=== PATIENT | female | born 1955 | race American Indian/Alaskan Native ===

== ENCOUNTER 2016-06-13 00:22 | Observation (INO) | payer MEDICARE, OTHER ==
[2016-06-13 00:22] VITALS: BMI 36.2
--- NOTE | 2016-06-13 01:10 | C.PDOC ---
History Of Present Illness Patient seen tonite due to Hx of leg swelling more so than usual. Complaining of pain.States she has been taking her lasix. Time Seen by Provider: 06/13/16 01:09 Chief Complaint (Nursing): Lower Extremity Problem/Injury History Per: Patient History/Exam Limitations: no limitations Onset/Duration Of Symptoms: Days Current Symptoms Are (Timing): Still Present Severity: Moderate Pain Scale Rating Of: 6 Recent travel outside of the [place]: No Additional History Per: Patient - Hip Currently Unable To: Other (no Hx of injury) - Ankle/Foot Description Of Injury: denies: Fell Past Medical History Vital Signs: Last Vital Signs Temp 99.1 F 06/13/16 05:06 Pulse 86 06/13/16 05:06 Resp 18 06/13/16 05:06 BP 113/68 06/13/16 05:06 Pulse Ox 98 06/13/16 05:36 - Medical History PMH: Arthritis, Bronchitis, CVA, Depression, Diabetes, HIV (T's>500 V's undectatable), HTN, Schizophrenia, TIA Denies: Chronic Kidney Disease Surgical History: Cholecystectomy Family History: States: Unknown Family Hx - Social History Hx Tobacco Use: No Hx Alcohol Use: No Hx Substance Use: No - Immunization History Hx Tetanus Toxoid Vaccination: No Hx Influenza Vaccination: Yes Hx Pneumococcal Vaccination: Yes Review Of Systems Constitutional: Negative for: Fever, Sweats Cardiovascular: Negative for: Chest Pain, Palpitations, Orthopnea Respiratory: Negative for: Cough, Shortness of Breath Gastrointestinal: Negative for: Nausea, Vomiting, Abdominal Pain, Diarrhea Genitourinary: Negative for: Dysuria, Frequency, Incontinence Musculoskeletal: Negative for: Arm Pain Skin: Negative for: Rash Neurological: Negative for: Weakness, Numbness, Incoordination, Change in Speech Psych: Negative for: Anxiety, Depression Physical Exam - Physical Exam Appears: No Acute Distress Skin: Normal Color, Warm, Dry Eye(s): bilateral: Normal Inspection, PERRL, EOMI Nose: Normal Tongue: Normal Appearing Throat: Normal Neck: Normal Cardiovascular: Rhythm Regular Respiratory: Normal Breath Sounds Gastrointestinal/Abdominal: Normal Exam Extremity: Normal ROM, Pedal Edema, Swelling (bilateral leg edema), Other ED Course And Treatment - Laboratory Results Result Diagrams: 06/13/16 01:28 06/13/16 01:28 ECG: Interpreted By Me, Viewed By Me ECG Rhythm: 1st Degree HB ECG Interpretation: Abnormal Interpretation Of ECG: NSR with first degree AV block, LAD, abnormal trcings Rate From EC O2 Sat by Pulse Oximetry: 98 Pulse Ox Interpretation: Normal - Radiology CXR: Interpreted by Me CXR Interpretation: Yes: Cardiomegaly, Other (presence of pulm. congestion) Disposition Discussed With Dr.: Bull Pelletier Doctor Will See Patient In The: Hospital Counseled Patient/Family Regarding: Diagnosis - Disposition Disposition: HOSPITALIZED Disposition Time: 05:35 Condition: STABLE - POA Present On Arrival: None - Clinical Impression Clinical Impression: Leg edema, Renal insufficiency
[2016-06-13 01:31] LABS: BASO # 0.1 K/uL (0.0-0.2); BASO % 0.8 % (0.0-2.0); EOS # 0.3 K/uL (0.0-0.7); EOS % 4.1 % (0.0-4.0); HEMATOCRIT 28.1 % (34.0-47.0); LYMPH # 2.9 K/uL (1.0-4.3); MEAN CELL VOLUME 94.7 fL (81.0-99.0); MEAN CORPUSCULAR HEMOGLOBIN 32.8 pg (27.0-31.0); MEAN CORPUSCULAR HGB CONC 34.6 g/dL (33.0-37.0); MEAN PLATELET VOLUME 6.9 fL (7.2-11.7); MONO # 0.7 K/uL (0.0-0.8); MONO % 10.4 % (0.0-10.0); NRBC % 0.1 % (0.0-2.0); RED CELL DISTRIBUTION WIDTH 13.7 % (11.5-14.5)
[2016-06-13 01:41] LABS: POTASSIUM 4.3 mmol/L (3.6-5.2)
[2016-06-13 01:43] LABS: ALB/GLOB RATIO 1.6 (1.0-2.1); BILIRUBIN,TOTAL 2.4 mg/dL (0.2-1.3); TOTAL PROTEIN 6.2 g/dL (6.3-8.3)
[2016-06-13 01:44] LABS: CALCIUM 8.5 mg/dl (8.6-10.4)
[2016-06-13] MEDS ORDERED: Sodium Chloride 0.9% 1,000 ML IV SCH (07:15)
--- NOTE | 2016-06-13 07:34 | CP.PCM.HP ---
<Guido Brown - Last Filed: 06/13/16 07:20> History of Present Illness - History of Present Illness History of Present Illness: Internal Medicine H&P Dr. Pelletier CC: B/L Leg Edema and Pain x 2 days HPI: This is a 61yo F patient with a PMH notable for HIV, HTN, DM, depression, hypercholesterolemia, anemia, DVT, and CVA presenting for medical evaluation of B/L lower extremity edema and pain for 1 week that became acutely worse 2 days ago. The patient notes that she was sitting in [employer] with a friend when she noticed that her legs were more swollen than normal, Right greater than Left. The patient subsequently had difficulty walking secondary to pain. The patient noted that she started a new HIV medication, Descovy, 2 months ago and started to notice incrementally more swelling in her legs since then. In addition to the swelling, the patient notes that she has become increasingly shot of breath on exertion. She states that normally she was able to walk about 2 blocks before becoming short of breath. She also states that she has had constant abdominal pain for the last two days, unintentional weight gain, cold intolerance, and constipation, but notes that her leg pain and swelling is her primary concern. The patient tried to use compression stockings at home, but was unable to get them on due to the swelling. The patient has noted no alleviating factors and sites walking as an exacerbating factor. The patient denies fever, chills, chest pain, palpitations, cough, N/V/D/C, changes in bowel /bladder habits, and extremity paresthesias. PMH: HIV, HTN, DM, depression, hypercholesterolemia, anemia, LLE DVT (17 years ago), and CVA (2 years ago- residual right sided weakness) Surg: Cholecystectomy, Total Hysterectomy Allergy: Cipro (rash) Social: Quit smoking 9 years ago Denies EtOH/Illicit Drugs PMD: Dr. Cueto Present on Admission - Present on Admission Any Indicators Present on Admission: No History of DVT/PE: Yes History of Uncontrolled Diabetes: No Urinary Catheter: No Decubitus Ulcer Present: No Review of Systems - Constitutional Constitutional: absent: Chills, Fatigue, Fever - EENT Eyes: absent: Blind Spots, Blurred Vision Ears: absent: Decreased Hearing, Ear Pain, Tinnitus Nose/Mouth/Throat: absent: Nose Pain, Change in Voice, Mouth Pain, Neck Pain, Neck Mass - Cardiovascular Cardiovascular: Leg Edema. absent: Chest Pain, Orthopnea, Palpitations, Syncope - Respiratory Respiratory: Dyspnea on Exertion. absent: Cough, Dyspnea, Hemoptysis - Gastrointestinal Gastrointestinal: Abdominal Pain, Constipation. absent: Diarrhea, Dysphagia, Nausea, Vomiting - Genitourinary Genitourinary: absent: Change in Urinary Stream, Difficulty Urinating - Musculoskeletal Musculoskeletal: Abnormal Gait. absent: Numbness, Stiffness, Tingling - Neurological Neurological: Abnormal Gait. absent: Headaches, Paresthesias, Radicular Pain, Syncope, Tingling, Tremor - Endocrine Endocrine: Cold Intolorance. absent: Heat Intolorance Past Patient History - Infectious Disease Hx of Infectious Diseases: None - Past Medical History & Family History Past Medical History?: Yes - Past Social History Smoking Status: Former Smoker - CARDIAC Hx Hypertension: Yes - PULMONARY Hx Bronchitis: Yes - NEUROLOGICAL Hx Transient Ischemic Attacks (TIA): Yes - HEENT Hx HEENT Problems: No - RENAL Hx Chronic Kidney Disease: No - ENDOCRINE/METABOLIC Hx Diabetes Mellitus Type 1: Yes - HEMATOLOGICAL/ONCOLOGICAL Hx Human Immunodeficiency Virus (HIV): Yes (T's>500 V's undectatable) - INTEGUMENTARY Hx Dermatological Problems: No - MUSCULOSKELETAL/RHEUMATOLOGICAL Hx Arthritis: Yes - GASTROINTESTINAL Hx Gastrointestinal Disorders: No - GENITOURINARY/GYNECOLOGICAL Hx Genitourinary Disorders: No - PSYCHIATRIC Hx Depression: Yes Hx Schizophrenia: Yes Hx Substance Use: No - SURGICAL HISTORY Hx Cholecystectomy: Yes - ANESTHESIA Hx Anesthesia: Yes Hx Anesthesia Reactions: No Hx Malignant Hyperthermia: No Meds Allergies/Adverse Reactions: Allergies Allergy/AdvReac Type Severity Reaction Status Date / Time ciprofloxacin Allergy Unknown Verified 06/13/16 00:46 Physical Exam - Constitutional Appears: Well, No Acute Distress - Head Exam Head Exam: ATRAUMATIC, NORMAL INSPECTION, NORMOCEPHALIC - Eye Exam Eye Exam: EOMI, Normal appearance Pupil Exam: NORMAL ACCOMODATION - ENT Exam ENT Exam: Mucous Membranes Moist, Normal Exam - Neck Exam Neck exam: Positive for: Full Rom, Normal Inspection. Negative for: Lymphadenopathy, Tenderness, Thyromegaly - Respiratory Exam Respiratory Exam: Clear to Auscultation Bilateral, NORMAL BREATHING PATTERN. absent: Accessory Muscle Use, Rales, Rhonchi, Wheezes, Respiratory Distress, Stridor - Cardiovascular Exam Cardiovascular Exam: REGULAR RHYTHM, RRR, +S1, +S2. absent: Diastolic murmur, Systolic Murmur - GI/Abdominal Exam GI & Abdominal Exam: Normal Bowel Sounds, Soft, Tenderness (epigastric). absent : Distended, Firm, Guarding, Rebound, Rigid Additional comments: diffuse epigastric tenderness to palpation - Extremities Exam Extremities exam: Positive for: pedal edema, tenderness, pedal pulses present. Negative for: normal inspection Additional comments: 3+ pitting edema to the knees B/L 2+ pitting edema to the hip B/L - Neurological Exam Neurological exam: Alert, CN II-XII Intact, Oriented x3 - Skin Skin Exam: Dry, Intact, Normal Color, Warm Results - Vital Signs Recent Vital Signs: Last Vital Signs Temp 99.1 F 06/13/16 05:06 Pulse 86 06/13/16 05:06 Resp 18 06/13/16 05:06 BP 113/68 06/13/16 05:06 Pulse Ox 98 06/13/16 05:36 - Labs Result Diagrams: 06/13/16 01:28 06/13/16 01:28 Assessment & Plan - Assessment and Plan (Free Text) Assessment: This is a 61yo F patient with a PMH notable for HIV, HTN, DM, depression, hypercholesterolemia, anemia, DVT, and CVA presenting for medical evaluation of B/L lower extremity edema and pain for 1 week that became acutely worse 2 days ago. Plan: 1.) B/L LE Edema- likely 2/2 to JASWANT vs CHF vs increased salt intake - Bun/Cr- 31/1.9 - 06/13/16 CXR- possible cardiomegaly, no active disease - BNP= 675 - renal US ordered - B/L LE US ordered - Echo ordered - 08/28/18 Echo- LVEF= 86% - AM Labs: CBC/CMP/A1c/TSH/Mg/Phos/HIV Viral Load/CD4 panel/B12/Folate/Iron panel - Pain Control- Tramadol 25po TID PRN pain 8-10 - PT/OT Eval 2.) JASWANT on CKD - Cr Clearance 40mL/min - likely CKD 3B - IVF- NS @ 100ml/hr - renal US pending - Random Urine: Sodium, Potassium, Protein, Creatinine, Glucose ordered - Urine Osm ordered - UA ordered 3.) DM - continue home Levemir 10u HS - continue home Novolog 6u TID - RISS - accucheck ACHS - diabetic diet - nutrition consult for diabetic education - Gabapentin 300mg PO TID - diabetic diet 4.) HTN - resume home meds: - Lopressor 25mg PO daily - Lasix 20mg PO - Holding Home Norvasc 10mg po daily due to increased risk for peripheral edema as side-effect - Enalapril 5mg PO daily 5.) h/o CVA (residual right sided weakness) - continue home Plavix 75mg PO daily - continue Aspirin 81mg PO Daily - continue home keppra 500mg po daily - Fall precautions - PT/OT eval 6.) Hypercholesterolemia - Home Lipitor 10mg PO HS - heart healthy diet 7.) Depression - continue celexa 20mg po daily 8.) HIV - CD4 count and viral load ordered - continue home Descovy 200-25mg PO daily - continue home ritonavir 100mg PO daily 9.) Anemia - stable at this time - iron panel ordered - B12/Folate ordered - monitor 10.) Prophylaxis - DVT- plavix 75mg PO - GI- Pepcid 20mg po daily - Pain Control- Tramadol 25po TID PRN pain 8-10 - contraindication for SCD- lower extremity edema Dk Brown PGY1 [id number] - Date & Time Date: 06/13/16 Time: 07:37 Decision To Admit - Pt Status Changed To: Hospital Disposition Of: Inpatient - Admit Certification Admit to Inpatient:: After my assessment, the patient will require hospitalization for at least two midnights. This is because of the severity of symptoms shown, intensity of services needed, and/or the medical risk in this patient being treated as an outpatient. - InPatient: Physician Admission Certification:: This patient has JASWANT in the setting of CKD and will require more than 2 midnights of treatment for resolution of her symptoms - . Bed Request Type: Regular Admitting Physician: Liss Cardoza <Bull Pelletier - Last Filed: 06/13/16 19:04> Results - Vital Signs Recent Vital Signs: Last Vital Signs Temp 99.4 F 06/13/16 16:00 Pulse 74 06/13/16 16:00 Resp 20 06/13/16 16:00 BP 111/64 06/13/16 16:00 Pulse Ox 98 06/13/16 16:00 - Labs Result Diagrams: 06/13/16 11:41 06/13/16 11:41 Labs: Laboratory Results - last 24 hr 06/13/16 06/13/16 06/13/16 11:28 11:32 11:41 WBC 7.6 RBC 3.13 L Hgb 10.1 L Hct 29.7 L MCV 94.7 MCH 32.3 H MCHC 34.1 RDW 14.0 Plt Count 314 MPV 7.1 L Neut % (Auto) 39.1 L Lymph % (Auto) 48.6 H [place] % (Auto) 8.0 Eos % (Auto) 3.7 Baso % (Auto) 0.6 Neut # 3.0 Lymph # 3.7 [place] # 0.6 Eos # 0.3 Baso # 0.0 Sodium 142 Potassium 4.6 Chloride 106 Carbon Dioxide 26 Anion Gap 15 BUN 29 H Creatinine 1.7 H Est GFR ( Amer) 37 Est GFR (Non-Af Amer) 31 POC Glucose (mg/dL) 180 H Random Glucose 151 H Calcium 8.7 Phosphorus 4.0 Magnesium 2.1 Total Bilirubin 2.4 H Direct Bilirubin 0.4 AST 20 ALT 20 Alkaline Phosphatase 296 H Total Protein 6.3 Albumin 3.7 Globulin 2.6 Albumin/Globulin Ratio 1.4 TSH 3rd Generation 0.59 Urine Color Straw Urine Clarity Clear Urine pH 6.0 Ur Specific [place] 1.005 Urine Protein Negative Urine Glucose (UA) Normal Urine Ketones Negative Urine Blood Negative Urine Nitrate Negative Urine Bilirubin Negative Urine Urobilinogen Normal Ur Leukocyte Esterase Neg Urine WBC (Auto) < 1 Urine RBC (Auto) < 1 Ur Squamous Epith Cells < 1 Urine Osmolality 293 L Ur Random Creatinine 18.9 Ur Random Sodium 113 Ur Random Potassium 15.8 Ur Random Glucose < 20 06/13/16 17:23 WBC RBC Hgb Hct MCV MCH MCHC RDW Plt Count MPV Neut % (Auto) Lymph % (Auto) [place] % (Auto) Eos % (Auto) Baso % (Auto) Neut # Lymph # [place] # Eos # Baso # Sodium Potassium Chloride Carbon Dioxide Anion Gap BUN Creatinine Est GFR ( Amer) Est GFR (Non-Af Amer) POC Glucose (mg/dL) 248 H Random Glucose Calcium Phosphorus Magnesium Total Bilirubin Direct Bilirubin AST ALT Alkaline Phosphatase Total Protein Albumin Globulin Albumin/Globulin Ratio TSH 3rd Generation Urine Color Urine Clarity Urine pH Ur Specific [place] Urine Protein Urine Glucose (UA) Urine Ketones Urine Blood Urine Nitrate Urine Bilirubin Urine Urobilinogen Ur Leukocyte Esterase Urine WBC (Auto) Urine RBC (Auto) Ur Squamous Epith Cells Urine Osmolality Ur Random Creatinine Ur Random Sodium Ur Random Potassium Ur Random Glucose Assessment & Plan - Date & Time Date: 06/13/16 (I have seen and examined the patient. I agree with the findings and plan of care as documented by Dr. Brown. Patient with acute kidney injury. IVF. Check renal ultrasound. Check urine osm. Also with bilateral lower extremity edema. Hold norvasc for now. Check venous dopplers. For history of Diabetes, give NISS and Accuchecks. Continue home meds. Monitor for acute changes.) Time: 19:03 Attending/Attestation - Attestation I have personally seen and examined this patient.: Yes I have fully participated in the care of the patient.: Yes I have reviewed all pertinent clinical information: Yes
[2016-06-13] MEDS ORDERED: Tramadol 25 mg PO PRN (07:54)
[2016-06-13 08:22] LABS: MAGNESIUM 2.2 mg/dL (1.6-2.3); PHOSPHOROUS 3.9 mg/dL (2.5-4.5)
[2016-06-13 08:55] LABS: THYROID STIMULATING HORMONE 0.98 mIU/L (0.46-4.68)
[2016-06-13] MEDS ORDERED: HYDROCORTISONE TOP SCH (10:00)
[2016-06-13] MEDS ORDERED: POLYMYXIN B TOP SCH (10:00)
[2016-06-13] MEDS ORDERED: EMTRICITABINE 200 MG PO SCH (10:00)
[2016-06-13] MEDS ORDERED: Insulin Detemir 100 units/ml Vial (Levemir) SC SCH (10:00)
[2016-06-13] MEDS ORDERED: NEOMYCIN TOP SCH (10:00)
[2016-06-13] MEDS ORDERED: TENOFOVIR ALAFENAMIDE 25 MG PO SCH (10:00)
[2016-06-13] MEDS ORDERED: (Novolin R) Insulin Human Regular 100 units/ml vial SC SCH (11:30)
[2016-06-13 11:44] LABS: RBC URINE < 1 /hpf (0-3); URINE BILIRUBIN NEGATIVE (NEGATIVE); URINE BLOOD NEGATIVE (NEGATIVE); URINE COLOR Straw (YELLOW); URINE GLUCOSE (UA) NORMAL (Normal); URINE KETONE NEGATIVE (NEGATIVE); URINE LEUKOCYTE ESTERASE NEG Leu/uL (Negative); URINE PROTEIN NEGATIVE (NEGATIVE); URINE UROBILINOGEN NORMAL mg/dL (0.2-1.0); WBC URINE < 1 /hpf (0-5)
[2016-06-13 11:50] LABS: BASO % 0.6 % (0.0-2.0); EOS # 0.3 K/uL (0.0-0.7); EOS % 3.7 % (0.0-4.0); HEMATOCRIT 29.7 % (34.0-47.0); LYMPH # 3.7 K/uL (1.0-4.3); LYMPH % 48.6 % (20.0-40.0); MEAN CELL VOLUME 94.7 fL (81.0-99.0); MEAN CORPUSCULAR HEMOGLOBIN 32.3 pg (27.0-31.0); MEAN CORPUSCULAR HGB CONC 34.1 g/dL (33.0-37.0); MEAN PLATELET VOLUME 7.1 fL (7.2-11.7); MONO # 0.6 K/uL (0.0-0.8); WHITE BLOOD COUNT 7.6 K/uL (4.8-10.8)
[2016-06-13 12:00] LABS: CREATININE, RANDOM URINE 18.9 mg/dL
[2016-06-13 12:01] LABS: POTASSIUM 4.6 mmol/L (3.6-5.2)
[2016-06-13 12:03] LABS: BILIRUBIN,TOTAL 2.4 mg/dL (0.2-1.3)
[2016-06-13 12:04] LABS: ALB/GLOB RATIO 1.4 (1.0-2.1); CALCIUM 8.7 mg/dl (8.6-10.4); MAGNESIUM 2.1 mg/dL (1.6-2.3); TOTAL PROTEIN 6.3 g/dL (6.3-8.3)
--- NOTE | 2016-06-13 12:12 | CP.PCM.PN ---
Subjective - Date & Time of Evaluation Date of Evaluation: 06/13/16 Time of Evaluation: 12:00 - Subjective Subjective: Medical Attending Note: Patient seen and examine at bedside. Patient reports for the past two weeks she has noticed her legs getting bigger with associated shortness of breathe on exertion. Patient reports she has went up in pant size from 36 to 38. Patient denies history of congestive heart failure, heart problems or kidney problems. patient reports she is diabetes about 200-300s which she takes insulin via flex pens but does not know her a1c. Patient reports she is HIV positive, compliant on medications and reports about 2 months ago she was undetectable and recently completed blood work as of last in regards to her bloodwork. Patient reports last bowel movement was about 4 days ago, she reports yesterday felt swelling around the abdomen yesterday which also bother her. Patient reports history of migraines but has not had workup in regards to her migraines. She denies photophobia, denies nuchal rigidity and does not take any anti-migraine medications to her knowledge. Objective - Vital Signs/Intake and Output Vital Signs (last 24 hours): Temp Pulse Resp BP Pulse Ox 98 F 75 18 112/53 L 99 06/13/16 07:13 06/13/16 07:13 06/13/16 07:13 06/13/16 11:16 06/13/16 07:13 Intake and Output: 06/13/16 06/13/16 06:59 18:59 Output Total 3200 Balance -3200 - Medications Medications: Current Medications Aspirin (Ecotrin) 81 mg PO DAILY [facility] Last Admin: 06/13/16 11:15 Dose: 81 mg Citalopram Hydrobromide (Celexa) 20 mg PO DAILY [facility] Last Admin: 06/13/16 11:15 Dose: 20 mg Clopidogrel Bisulfate (Plavix) 75 mg PO DAILY [facility] Last Admin: 06/13/16 11:18 Dose: 75 mg Famotidine (Pepcid) 20 mg PO DAILY [facility] Last Admin: 06/13/16 11:18 Dose: 20 mg Furosemide (Lasix) 20 mg PO BID [facility] Last Admin: 06/13/16 11:16 Dose: 20 mg Gabapentin (Neurontin) 300 mg PO TID [facility] Last Admin: 06/13/16 11:17 Dose: 300 mg Home Med (Emtricitabine/Tenofov Alafenam [Descovy 200-25 Mg Tablet]) 1 each PO DAILY [facility] Home Med (Neomycin/Polymyxin/Hydrocortis [Cortisporin Otic Susp]) 3 drop TOP TID [facility] Last Admin: 06/13/16 11:17 Dose: Not Given Sodium Chloride (Sodium Chloride 0.9%) 1,000 mls @ 100 mls/hr IV .Q10H [facility] Last Admin: 06/13/16 07:32 Dose: 100 mls/hr Insulin Detemir (Levemir) 10 unit SC HS [facility] Insulin Human Regular (Novolin R) 0 unit SC ACHS [facility] PRN Reason: Protocol Levetiracetam (Keppra) 500 mg PO BID [facility] Last Admin: 06/13/16 11:16 Dose: 500 mg Metoprolol Tartrate (Lopressor) 25 mg PO DAILY [facility] Last Admin: 06/13/16 11:16 Dose: 25 mg Ritonavir (Norvir) 100 mg PO DAILY [facility] Last Admin: 06/13/16 11:18 Dose: 100 mg Tramadol HCl (Ultram) 25 mg PO TID PRN PRN Reason: Pain, severe (8-10) Last Admin: 06/13/16 11:19 Dose: 25 mg - Labs Labs: 06/13/16 11:41 06/13/16 11:41 - Constitutional Appears: Non-toxic, No Acute Distress - Head Exam Head Exam: NORMAL INSPECTION - Eye Exam Eye Exam: EOMI - ENT Exam ENT Exam: Mucous Membranes Dry - Respiratory Exam Respiratory Exam: Clear to Ausculation Bilateral, NORMAL BREATHING PATTERN. absent: Respiratory Distress, Stridor - Cardiovascular Exam Cardiovascular Exam: REGULAR RHYTHM, +S1, +S2. absent: Diastolic murmur - GI/Abdominal Exam GI & Abdominal Exam: Soft, Normal Bowel Sounds. absent: Distended, Firm, Guarding, Rigid, Tenderness, Rebound - Extremities Exam Extremities Exam: Normal Capillary Refill, Pedal Edema, Tenderness - Neurological Exam Neurological Exam: Alert, Awake, Oriented x3 - Skin Skin Exam: Dry, Normal Color, Warm Assessment and Plan (1) Congestive heart failure Assessment & Plan: 06/13/16 Echocardiogram ordered awaiting results held enalapril secondary to acute kidney function will need beta-pedro pending results daily weights intake and out risk factors: diabetes and hypertension Fasting lipid panel in AM, [id number], TSH Lasix 40mg IV Q 12hours Aspirin 81mg PO daily start Crestor 5mg POqHS Status: Suspected (2) JASWANT (acute kidney injury) Assessment & Plan: 06/13/16 Patient discontinue IV fluids given leg swelling and weight gain pending renal US held enalapril in light of acute kidney injury hold NSAIDs GFR: 40s Pending UA Status: Acute (3) Diabetes Assessment & Plan: 06/13/16 check [id number]; patient is on a long acting insulin: Levemir 10 units subHS; Novolog 6units tid, Gabapentin 300mg PO tid; will monitor accuchecks QAC and HS and medium dose insulin sliding scale Status: Acute (4) History of CVA (cerebrovascular accident) Assessment & Plan: Aspirin 81mg PO daily Plavix 75mg Po daily Keppra 500mg PO daily Fall precautions held annalisa-inhibitor secondary to acute kidney injury start crestor 5mg PO qHS PT eval Status: Chronic (5) HIV (human immunodeficiency virus infection) Assessment & Plan: 06/13/16 Patient has a history of HIV; Compliant on medications; undetectable about 2 months ago; has had blood work drawn recently on ; on home medication: Descovy 200-250mg PO daily and Norvir 100mg PO daily Status: Chronic (6) HTN (hypertension) Assessment & Plan: 06/13/16 Patient is on IV fluids; held enalapril secondary to acute kidney injury , will monitor vitals and initate accordingly Status: Chronic (7) Leg edema Assessment & Plan: pending echocardiogram pending lower extremity dopplers d/c IV fluids hx of prior DVT lasix 4omg IV subq12 Status: Chronic (8) Prophylactic measure Assessment & Plan: 06/13/16 DVT ppx: GI ppx:Pepcid 20mg Po daily dopplers to rule out DVT; PT/OT eval, monitor daily weights and intake and outputs; fall precautions Status: Chronic
[2016-06-13 13:20] LABS: BILIRUBIN,DIRECT 0.4 mg/dL (0.0-0.4)
[2016-06-13] MEDS: TENOFOVIR ALAFENAMIDE 25 MG PO SCH (13:51)
[2016-06-13] MEDS: Neomycin/Polymyxin/Hydrocort Otic Soln BOTTLE AU SCH ×2 (13:51→22:13)
[2016-06-13] MEDS: EMTRICITABINE 200 MG PO SCH (13:51)
[2016-06-13] MEDS: Enoxaparin 30 mg Syringe SC SCH (14:31)
--- NOTE | 2016-06-13 15:14 | CARD ---
APPROVED REPORT EXAM: Two-dimensional and M-mode echocardiogram with Doppler and color Doppler. Other Information Quality : Good[employer] : INDICATION HIV RISK FACTORS Hypertension Diabetes M-Mode DIMENSIONS RVDd1.56 (2.1-3.2cm)Left Atrium (MM)4.16 (2.5-4.0cm) IVSd0.85 (0.7-1.1cm)Aortic Root2.83 (2.2-3.7cm) LVDd4.46 (4.0-5.6cm)Aortic Cusp Exc.1.20 (1.5-2.0cm) PWd0.91 (0.7-1.1cm)FS (%) 40 % LVDs2.67 (2.0-3.8cm)LVEF (%)71 (>50%) Mitral Valve MV E [place]254.9cm/sMV A [place]069.7cm/sE/A ratio1.1 TDI E/Lateral E'0.0E/Medial E'0.0 Tricuspid Valve TR Peak [id number] Peak [id number] <Conclusion> poor window. la is mildly dilated. normal size lv,ra & rv. normal lv wall motion,thickness & systolic funciton with lvef of 65-70%. lv diastolic dysfuction grade 2.elevated la pressures. mild tr with calculated pulmonary systolic pressures of 39 mm of hg, c/w mild pulmonary nhypertension. no pericardial effusaion. normal size aortic root.
--- NOTE | 2016-06-13 16:04 | RAD ---
HISTORY: r/o CHF COMPARISON: Comparison made with prior chest radiograph 04/22/2016. FINDINGS: LUNGS: Poor inspiration with low lung volumes, crowded bronchovascular markings and suspected mild bibasilar atelectasis. In addition,, there is a vague opacity seen in the left upper lobe which could represent developing asymmetric pulmonary edema and/or infiltrate. PLEURA: No significant pleural effusion identified, no pneumothorax apparent. CARDIOVASCULAR: Cardiomegaly. OSSEOUS STRUCTURES: No significant abnormalities. VISUALIZED UPPER ABDOMEN: Normal. OTHER FINDINGS: None. IMPRESSION: Poor inspiration with low lung volumes, crowded bronchovascular markings and suspected mild bibasilar atelectasis. In addition,, there is a vague opacity seen in the left upper lobe which could represent developing asymmetric pulmonary edema and/or infiltrate
[2016-06-13] MEDS: (Novolin R) Insulin Human Regular 100 units/ml vial SC SCH ×2 (17:49→22:10)
--- NOTE | 2016-06-13 19:14 | US ---
Renal bladder ultrasound dated 06/13/2016. History: HPI. Sonographic evaluation of the kidneys and bladder performed. Findings: The right kidney measures 8.3 x 4.7 x 7.2 cm. Left kidney measures 9.1 x 5.7 x 6.1 cm. No evidence of shadowing calculi or hydronephrosis. Renal parenchyma is slightly echogenic ; rule out underlying mild medical renal disease. No evidence of nephrolithiasis or hydronephrosis. Prevoid bladder volume calculated 436 cc and postvoid calculated 271 cc. Both ureteral jets visible Impression: Findings suggest underlying medical renal disease however clinical correlation recommended. No evidence of nephrolithiasis or hydronephrosis. . Large postvoid residual.
[2016-06-13] MEDS: Insulin Detemir 100 units/ml Vial (Levemir) SC SCH (22:14)
[2016-06-14] MEDS: (Novolin R) Insulin Human Regular 100 units/ml vial SC SCH ×4 (07:25→22:09)
[2016-06-14 08:44] LABS: BASO % 0.9 % (0.0-2.0); EOS # 0.3 K/uL (0.0-0.7); EOS % 4.9 % (0.0-4.0); HEMATOCRIT 29.7 % (34.0-47.0); LYMPH # 2.7 K/uL (1.0-4.3); LYMPH % 50.4 % (20.0-40.0); MEAN CELL VOLUME 95.7 fL (81.0-99.0); MEAN CORPUSCULAR HEMOGLOBIN 32.6 pg (27.0-31.0); MEAN CORPUSCULAR HGB CONC 34.1 g/dL (33.0-37.0); MEAN PLATELET VOLUME 7.2 fL (7.2-11.7); MONO # 0.6 K/uL (0.0-0.8); MONO % 10.7 % (0.0-10.0); NRBC % 0.2 % (0.0-2.0); RED CELL DISTRIBUTION WIDTH 13.7 % (11.5-14.5); WHITE BLOOD COUNT 5.4 K/uL (4.8-10.8)
[2016-06-14 08:50] LABS: POTASSIUM 4.8 mmol/L (3.6-5.2)
[2016-06-14 08:51] LABS: IRON 31 ug/dL (37-170)
[2016-06-14 08:53] LABS: ALB/GLOB RATIO 0.9 (1.0-2.1); BILIRUBIN,TOTAL 1.6 mg/dL (0.2-1.3); CALCIUM 8.5 mg/dl (8.6-10.4); PHOSPHOROUS 4.1 mg/dL (2.5-4.5); TOTAL PROTEIN 7.1 g/dL (6.3-8.3)
[2016-06-14 08:54] LABS: MAGNESIUM 2.2 mg/dL (1.6-2.3)
[2016-06-14] MEDS ORDERED: Magnesium Hydroxide Susp 30 ml UD PO ONE (08:56)
[2016-06-14] MEDS: Neomycin/Polymyxin/Hydrocort Otic Soln BOTTLE AU SCH ×3 (09:26→18:13)
[2016-06-14] MEDS: Enoxaparin 30 mg Syringe SC SCH (09:28)
[2016-06-14] MEDS: TENOFOVIR ALAFENAMIDE 25 MG PO SCH (09:29)
[2016-06-14] MEDS: EMTRICITABINE 200 MG PO SCH (09:29)
[2016-06-14 09:59] LABS: FOLATE 4.5 ng/mL
[2016-06-14] MEDS: Bisacodyl 5mg EC Tab PO SCH (13:13)
--- NOTE | 2016-06-14 14:42 | CP.PCM.PN ---
<TadAlphonse - Last Filed: 06/14/16 14:35> Subjective - Date & Time of Evaluation Date of Evaluation: 06/14/16 Time of Evaluation: 09:45 - Subjective Subjective: Medicine Note- Hospitalist Service Patient was seen and examined at bedside. Patient reports that her legs still very sensitive/painful when touched. She says her bilateral swelling hasn't really changed. No events overnight, per nursing. Objective - Vital Signs/Intake and Output Vital Signs (last 24 hours): Temp Pulse Resp BP Pulse Ox 97.6 F 83 18 111/66 99 06/14/16 07:37 06/14/16 10:43 06/14/16 07:37 06/14/16 09:27 06/14/16 07:37 Intake and Output: 06/14/16 06/14/16 06:59 18:59 Intake Total 600 Output Total 600 Balance 0 - Medications Medications: Current Medications Ascorbic Acid (Vitamin C 250 Mg Tab) 250 mg PO DAILY [facility] Last Admin: 06/14/16 14:01 Dose: 250 mg Aspirin (Ecotrin) 81 mg PO DAILY [facility] Last Admin: 06/14/16 09:26 Dose: 81 mg Bisacodyl (Dulcolax) 5 mg PO DAILY [facility] Last Admin: 06/14/16 13:13 Dose: 5 mg Citalopram Hydrobromide (Celexa) 20 mg PO DAILY [facility] Last Admin: 06/14/16 10:24 Dose: 20 mg Clopidogrel Bisulfate (Plavix) 75 mg PO DAILY [facility] Last Admin: 06/14/16 09:29 Dose: 75 mg Enoxaparin Sodium (Lovenox) 30 mg SC DAILY [facility] Last Admin: 06/14/16 09:28 Dose: 30 mg Famotidine (Pepcid) 20 mg PO DAILY [facility] Last Admin: 06/14/16 09:29 Dose: 20 mg Ferrous Sulfate (Feosol) 325 mg PO DAILY [facility] Last Admin: 06/14/16 13:13 Dose: 325 mg Furosemide (Lasix) 40 mg IVP Q12 [facility] Last Admin: 06/14/16 09:27 Dose: 40 mg Gabapentin (Neurontin) 400 mg PO TID [facility] Last Admin: 06/14/16 13:14 Dose: 400 mg Home Med (Patient's Own Medication) 1 tab PO DAILY [facility] Last Admin: 06/14/16 09:29 Dose: 1 tab Insulin Detemir (Levemir) 10 unit SC HS [facility] Last Admin: 06/13/16 22:14 Dose: 10 unit Insulin Human Regular (Novolin R) 0 unit SC ACHS [facility] PRN Reason: Protocol Last Admin: 06/14/16 12:05 Dose: 3 unit Levetiracetam (Keppra) 500 mg PO BID [facility] Last Admin: 06/14/16 09:27 Dose: 500 mg Metoprolol Succinate (Toprol Xl) 12.5 mg PO DAILY [facility] Morphine Sulfate (Morphine) 2 mg IVP Q4 PRN PRN Reason: Pain, severe (8-10) Last Admin: 06/14/16 14:20 Dose: 2 mg Neomycin/Polymyxin/Hydrocortisone (Cortisporin Otic Soln) 3 drop AU TID [facility] Last Admin: 06/14/16 13:13 Dose: 3 drop Ritonavir (Norvir) 100 mg PO DAILY [facility] Last Admin: 06/14/16 10:24 Dose: 100 mg Rosuvastatin Calcium (Crestor) 5 mg PO [facility] Trazodone HCl (Desyrel) 100 mg PO [facility] Last Admin: 06/13/16 22:13 Dose: 100 mg - Labs Labs: 06/14/16 08:22 06/14/16 08:22 - Constitutional Appears: Non-toxic, No Acute Distress - Head Exam Head Exam: ATRAUMATIC, NORMAL INSPECTION, NORMOCEPHALIC - Eye Exam Pupil Exam: NORMAL ACCOMODATION - ENT Exam ENT Exam: Mucous Membranes Moist - Respiratory Exam Respiratory Exam: Clear to Ausculation Bilateral, NORMAL BREATHING PATTERN. absent: Rales, Rhonchi, Wheezes - Cardiovascular Exam Cardiovascular Exam: REGULAR RHYTHM, +S1, +S2 - GI/Abdominal Exam GI & Abdominal Exam: Soft, Normal Bowel Sounds. absent: Tenderness, Diminished Bowel Sounds, Hypoactive Bowel Sounds - Extremities Exam Extremities Exam: Normal Capillary Refill Additional comments: bilateral lower extremity edema, R >L. Skin is tender to touch - Neurological Exam Neurological Exam: Alert, Awake, Oriented x3 - Psychiatric Exam Psychiatric exam: Normal Affect, Normal Mood - Skin Skin Exam: Dry, Intact, Normal Color, Warm Assessment and Plan (1) Anemia Status: Acute - Assessment and Plan (Free Text) Assessment: (1) Congestive heart failure Assessment & Plan: 06/14/16 Echocardiogram ordered awaiting results held enalapril secondary to acute kidney function Started on Metoprolol succinate XL 12.5mg PO Daily daily weights intake and out risk factors: diabetes and hypertension Fasting lipid panel in AM, [id number] TSH 0.59 WNL Lasix 40mg IV Q 12hours Aspirin 81mg PO daily started Crestor 5mg POqHS Status: Suspected (2) JASWANT (acute kidney injury) Assessment & Plan: 06/14/16 Patient discontinue IV fluids given leg swelling and weight gain pending renal US consult Nephro- Dr. Medina held enalapril in light of acute kidney injury hold NSAIDs GFR: 40s Pending UA Status: Acute (3) Diabetes Assessment & Plan: f/u [id number]; patient is on a long acting insulin: Levemir 10 units subHS; Novolog 6units tid, Gabapentin 300mg PO tid; will monitor accuchecks QAC and HS and medium dose insulin sliding scale Status: Acute (4) History of CVA (cerebrovascular accident) Assessment & Plan: Aspirin 81mg PO daily Plavix 75mg Po daily Keppra 500mg PO daily Fall precautions held annalisa-inhibitor secondary to acute kidney injury started crestor 5mg PO qHS PT eval Status: Chronic (5) HIV (human immunodeficiency virus infection) Assessment & Plan: Patient has a history of HIV; Compliant on medications; undetectable about 2 months ago; has had blood work drawn recently on ; on home medication: Descovy 200-250mg PO daily and Norvir 100mg PO daily Status: Chronic (6) HTN (hypertension) Assessment & Plan: Patient is on IV fluids; held enalapril secondary to acute kidney injury, will monitor vitals and initiate accordingly Status: Chronic (7) Leg edema Assessment & Plan: Echocardiogram- LA mildly dilated, normal LV wall motion, systolic function, EF 65-70%. Diastolic dysfunction grade 2 LA pressures, mild TR, mild pulmonary hypertension lower extremity dopplers- prelim- negative for DVT d/c IV fluids hx of prior DVT f/u arterial dopplers lasix 4omg IV subq12 Stopped Gabapentin due to JASWANT Increased Morphine to 2mg IVP Q4h Status: Chronic (8) Prophylactic measure Assessment & Plan: 06/13/16 DVT ppx: GI ppx:Pepcid 20mg Po daily dopplers to rule out DVT; PT/OT eval, monitor daily weights and intake and outputs; fall precautions Status: Chronic (9) Anemia Assessment & Plan: Likely anemia of chronic disease, MCV 95.7 Hgb 10.1 Started on Feosol 325mg IVPB Daily Vitamin C 250mg PO Daily Iron 31, TIBC 383, % saturation 8, ferritin 11.6 <Liss Cardoza V - Last Filed: 06/17/16 15:53> Objective - Vital Signs/Intake and Output Vital Signs (last 24 hours): Temp Pulse Resp BP Pulse Ox 97.9 F 82 20 123/72 97 06/16/16 15:42 06/16/16 15:42 06/16/16 15:42 06/16/16 15:42 06/16/16 15:42 - Labs Labs: 06/16/16 05:59 06/16/16 05:59 Assessment and Plan (1) Congestive heart failure Status: Chronic (2) JASWANT (acute kidney injury) Status: Acute (3) Diabetes Status: Acute (4) History of CVA (cerebrovascular accident) Status: Chronic (5) HIV (human immunodeficiency virus infection) Status: Chronic (6) HTN (hypertension) Status: Chronic (7) Leg edema Status: Chronic (8) Prophylactic measure Status: Chronic Attending/Attestation - Attestation I have personally seen and examined this patient.: Yes I have fully participated in the care of the patient.: Yes I have reviewed all pertinent clinical information, including history, physical exam and plan: Yes Notes (Text): This is late computer entry for 06/14/16. Patient seen, examined and case discussed with day-time resident. Patient reports at bedside the swelling in her legs are bothering her, explained that we increased her Morphine PRN and on lasix IV to help reduce swelling in the legs. Patient reports she is urinating. Patient started on low dose beta pedro. Echocardiogram report resulted Nephrology consulted given patient's acute on chronic kidney disease; since patient has seen or had a proper kidney workup. Renal US ordered. Pending Venous doppler report r/o acute DVT Updated Assessment/Plan (1) Congestive heart failure Assessment & Plan: 06/14/16 Acute on chronic diastolic heart failure Echocardiogram (06/13/16): la is mildly dilated normal size lv, ra, and rv. normal lv wall motion, thickness, and systolic function with Lv ef: 65-70%. lv diastolic dysfunction grade 2 elevated la pressure. mild tr, c/w mild pulmonary hypertension. no pericardial effusion. nomral size aortic root Started on Toproxol 12.5mg PO daily daily weights intake and out risk factors: diabetes and hypertension Fasting lipid panel in AM, [id number], TSH Lasix 40mg IV Q 12hours Aspirin 81mg PO daily start Crestor 5mg POqHS 06/13/16 Echocardiogram ordered awaiting results held enalapril secondary to acute kidney function will need beta-pedro pending results daily weights intake and out risk factors: diabetes and hypertension Fasting lipid panel in AM, [id number], TSH Lasix 40mg IV Q 12hours Aspirin 81mg PO daily start Crestor 5mg POqHS Status: Suspected (2) JASWANT (acute kidney injury) Assessment & Plan: 06/14/16 Renal US (06/13/16): findings suggest underlying medical renal disease however clinical correlation recommended. no evidence of nephrolithiasis or hydronephrosis. Large post void residual Patient is urinating and is on IV lasix as well Enalapril held secondary to acute kidney injury Nephrology consulted (Dr. Medina); f/u recommendations Pending UA 06/13/16 Patient discontinue IV fluids given leg swelling and weight gain pending renal US held enalapril in light of acute kidney injury hold NSAIDs GFR: 40s Pending UA Status: Acute (3) Diabetes Assessment & Plan: 06/14/16 continue current management 06/13/16 check [id number]; patient is on a long acting insulin: Levemir 10 units subHS; Novolog 6units tid, Gabapentin 300mg PO tid; will monitor accuchecks QAC and HS and medium dose insulin sliding scale Status: Chronic (4) History of CVA (cerebrovascular accident) Assessment & Plan: 06/14/16 continue current management with addition of Toprol XL 12.5mg PO daily 06/13/16 Aspirin 81mg PO daily Plavix 75mg Po daily Keppra 500mg PO daily Fall precautions held annalisa-inhibitor secondary to acute kidney injury start crestor 5mg PO qHS PT eval Status: Chronic (5) HIV (human immunodeficiency virus infection) Assessment & Plan: 06/14/16 continue current management; pending blood work drawn to determine CD4 count 06/13/16 Patient has a history of HIV; Compliant on medications; undetectable about 2 months ago; has had blood work drawn recently on ; on home medication: Descovy 200-250mg PO daily and Norvir 100mg PO daily Status: Chronic (6) HTN (hypertension) Assessment & Plan: 06/14/16 started on Toprol XL 12.5mg PO daily; held enalapril secondary to acute kidney injury; off IV fluids monitor vitals and adjust accordingly 06/13/16 Patient is on IV fluids; held enalapril secondary to acute kidney injury , will monitor vitals and initate accordingly Status: Chronic (7) Leg edema Assessment & Plan: 06/14/16 Echocardiogram (06/13/16): la is mildly dilated normal size lv, ra, and rv. normal lv wall motion, thickness, and systolic function with Lv ef: 65-70%. lv diastolic dysfunction grade 2 elevated la pressure. mild tr, c/w mild pulmonary hypertension. no pericardial effusion. nomral size aortic root pending lower extremity dopplers d/c IV fluids hx of prior DVT (10+ years ago) lasix 40mg IV subq12 pending venous doppler report pending arterial doppler report 06/13/16 pending echocardiogram pending lower extremity dopplers d/c IV fluids hx of prior DVT lasix 4omg IV subq12 Status: Chronic (8) Prophylactic measure Assessment & Plan: 06/14/16 DVT ppx: Lovenox 30mg subqdaily; GI ppx:Pepcid 20mg Po daily dopplers to rule out DVT; PT/OT eval, monitor daily weights and intake and outputs; fall precautions 06/13/16 DVT ppx: GI ppx:Pepcid 20mg Po daily dopplers to rule out DVT; PT/OT eval, monitor daily weights and intake and outputs; fall precautions Status: Chronic
[2016-06-14] MEDS: Insulin Detemir 100 units/ml Vial (Levemir) SC SCH (22:08)
[2016-06-15 07:33] LABS: BASO % 0.7 % (0.0-2.0); EOS # 0.3 K/uL (0.0-0.7); EOS % 5.6 % (0.0-4.0); LYMPH # 2.8 K/uL (1.0-4.3); LYMPH % 50.9 % (20.0-40.0); MEAN CELL VOLUME 94.3 fL (81.0-99.0); MEAN CORPUSCULAR HEMOGLOBIN 32.2 pg (27.0-31.0); MEAN CORPUSCULAR HGB CONC 34.2 g/dL (33.0-37.0); MONO # 0.6 K/uL (0.0-0.8); MONO % 10.4 % (0.0-10.0); NRBC % 0.1 % (0.0-2.0); RED CELL DISTRIBUTION WIDTH 13.4 % (11.5-14.5); WHITE BLOOD COUNT 5.4 K/uL (4.8-10.8)
[2016-06-15 07:43] LABS: POTASSIUM 4.5 mmol/L (3.6-5.2)
[2016-06-15 07:45] LABS: ALB/GLOB RATIO 1.1 (1.0-2.1); PHOSPHOROUS 4.4 mg/dL (2.5-4.5); TOTAL PROTEIN 6.9 g/dL (6.3-8.3)
[2016-06-15 07:46] LABS: CALCIUM 8.2 mg/dl (8.6-10.4); MAGNESIUM 2.1 mg/dL (1.6-2.3)
[2016-06-15] MEDS: (Novolin R) Insulin Human Regular 100 units/ml vial SC SCH ×4 (08:36→21:48)
[2016-06-15] MEDS: TENOFOVIR ALAFENAMIDE 25 MG PO SCH (10:44)
[2016-06-15] MEDS: Metoprolol Succinate 12.5 mg XL PO SCH (10:44)
[2016-06-15] MEDS: Enoxaparin 30 mg Syringe SC SCH (10:44)
[2016-06-15] MEDS: Bisacodyl 5mg EC Tab PO SCH (10:44)
[2016-06-15] MEDS: EMTRICITABINE 200 MG PO SCH (10:44)
--- NOTE | 2016-06-15 11:34 | CP.PCM.CON ---
History of Present Illness - History of Present Illness History of Present Illness: 61 y/o female with Hx/o HIV infection on meds, DM 11, CVA (intra cranial hemorrhage) was admitted for c/o pain & swelling of both legs Renal consult is requested because creatinine level was 1.8 Pt reports that 2 yrs ago she had passed kidney stone, None since then Previous labs reviewed. Baseline creat. has been between 1.3-1.7 Mother had CKD & was on dialysis. Past Patient History - Infectious Disease Hx of Infectious Diseases: None - Past Medical History & Family History Past Medical History?: Yes - Past Social History Smoking Status: Former Smoker - CARDIAC Hx Hypertension: Yes Hx Peripheral Edema: Yes - PULMONARY Hx Bronchitis: Yes - NEUROLOGICAL Hx Transient Ischemic Attacks (TIA): Yes - HEENT Hx HEENT Problems: No - RENAL Hx Chronic Kidney Disease: No - ENDOCRINE/METABOLIC Hx Diabetes Mellitus Type 1: Yes - HEMATOLOGICAL/ONCOLOGICAL Hx Human Immunodeficiency Virus (HIV): Yes (T's>500 V's undectatable) - INTEGUMENTARY Hx Dermatological Problems: No - MUSCULOSKELETAL/RHEUMATOLOGICAL Hx Falls: No - GASTROINTESTINAL Hx Gastrointestinal Disorders: No - GENITOURINARY/GYNECOLOGICAL Hx Genitourinary Disorders: No - PSYCHIATRIC Hx Substance Use: No - SURGICAL HISTORY Hx Cholecystectomy: Yes - ANESTHESIA Hx Anesthesia: Yes Hx Anesthesia Reactions: No Hx Malignant Hyperthermia: No Meds Allergies/Adverse Reactions: Allergies Allergy/AdvReac Type Severity Reaction Status Date / Time ciprofloxacin Allergy Unknown Verified 06/13/16 00:46 - Medications Medications: Current Medications Ascorbic Acid (Vitamin C 250 Mg Tab) 250 mg PO DAILY [facility] Last Admin: 06/15/16 10:44 Dose: 250 mg Aspirin (Ecotrin) 81 mg PO DAILY [facility] Last Admin: 06/15/16 10:44 Dose: 81 mg Bisacodyl (Dulcolax) 5 mg PO DAILY [facility] Last Admin: 06/15/16 10:44 Dose: Not Given Citalopram Hydrobromide (Celexa) 20 mg PO DAILY [facility] Last Admin: 06/15/16 10:45 Dose: 20 mg Clopidogrel Bisulfate (Plavix) 75 mg PO DAILY [facility] Last Admin: 06/15/16 10:45 Dose: 75 mg Enoxaparin Sodium (Lovenox) 30 mg SC DAILY [facility] Last Admin: 06/15/16 10:44 Dose: 30 mg Famotidine (Pepcid) 20 mg PO DAILY [facility] Last Admin: 06/15/16 10:44 Dose: 20 mg Ferrous Sulfate (Feosol) 325 mg PO DAILY [facility] Last Admin: 06/15/16 10:45 Dose: 325 mg Furosemide (Lasix) 40 mg IVP Q12 [facility] Last Admin: 06/15/16 10:44 Dose: 40 mg Home Med (Patient's Own Medication) 1 tab PO DAILY [facility] Last Admin: 06/15/16 10:44 Dose: 1 tab Insulin Detemir (Levemir) 10 unit SC [facility] Last Admin: 06/14/16 22:08 Dose: 10 unit Insulin Human Regular (Novolin R) 0 unit SC [facility] PRN Reason: Protocol Last Admin: 06/15/16 08:36 Dose: 2 unit Levetiracetam (Keppra) 500 mg PO BID [facility] Last Admin: 06/15/16 10:45 Dose: 500 mg Metoprolol Succinate (Toprol Xl) 12.5 mg PO DAILY [facility] Last Admin: 06/15/16 10:44 Dose: Not Given Morphine Sulfate (Morphine) 2 mg IVP Q4 PRN PRN Reason: Pain, severe (8-10) Last Admin: 06/15/16 05:46 Dose: 2 mg Ritonavir (Norvir) 100 mg PO DAILY [facility] Last Admin: 06/15/16 10:45 Dose: 100 mg Rosuvastatin Calcium (Crestor) 5 mg PO [facility] Last Admin: 06/14/16 22:07 Dose: 5 mg Trazodone HCl (Desyrel) 100 mg PO [facility] Last Admin: 06/14/16 22:07 Dose: 100 mg Physical Exam - Constitutional Appears: No Acute Distress Additional comments: Comfortable supine - Head Exam Head Exam: ATRAUMATIC, NORMOCEPHALIC - Eye Exam Additional comments: No icterus - ENT Exam ENT Exam: Mucous Membranes Moist - Neck Exam Additional comments: JVD negative - Respiratory Exam Additional comments: Lungs clear - Cardiovascular Exam Cardiovascular Exam: REGULAR RHYTHM - GI/Abdominal Exam Additional comments: Abdomen is soft nontender. No CVA tederness - Extremities Exam Additional comments: 2+ B/L pedal edema Results - Vital Signs Recent Vital Signs: Last Vital Signs Temp 98.6 F 06/15/16 08:42 Pulse 81 06/15/16 08:42 Resp 18 06/15/16 08:42 BP 120/72 06/15/16 10:44 Pulse Ox 97 06/15/16 08:42 - Labs Result Diagrams: 06/15/16 07:21 06/15/16 07:21 Labs: Laboratory Results - last 24 hr 06/13/16 06/14/16 06/14/16 11:41 11:58 16:30 WBC RBC Hgb Hct MCV MCH MCHC RDW Plt Count MPV Neut % (Auto) Lymph % (Auto) [place] % (Auto) Eos % (Auto) Baso % (Auto) Neut # Lymph # [place] # Eos # Baso # Sodium Potassium Chloride Carbon Dioxide Anion Gap BUN Creatinine Est GFR ( Amer) Est GFR (Non-Af Amer) POC Glucose (mg/dL) 221 H 197 H Random Glucose Hemoglobin A1c 7.6 H Calcium Phosphorus Magnesium Total Bilirubin AST ALT Alkaline Phosphatase Total Protein Albumin Globulin Albumin/Globulin Ratio Triglycerides Cholesterol LDL Cholesterol Direct HDL Cholesterol 06/14/16 06/15/16 06/15/16 20:40 06:13 07:21 WBC 5.4 RBC 3.18 L Hgb 10.2 L Hct 30.0 L MCV 94.3 MCH 32.2 H MCHC 34.2 RDW 13.4 Plt Count 313 MPV 7.0 L Neut % (Auto) 32.4 L Lymph % (Auto) 50.9 H [place] % (Auto) 10.4 H Eos % (Auto) 5.6 H Baso % (Auto) 0.7 Neut # 1.8 Lymph # 2.8 [place] # 0.6 Eos # 0.3 Baso # 0.0 Sodium 140 Potassium 4.5 Chloride 103 Carbon Dioxide 29 Anion Gap 13 BUN 28 H Creatinine 1.6 H Est GFR ( Amer) 40 Est GFR (Non-Af Amer) 33 POC Glucose (mg/dL) 264 H 189 H Random Glucose 169 H Hemoglobin A1c Calcium 8.2 L Phosphorus 4.4 Magnesium 2.1 Total Bilirubin 1.0 AST 21 ALT 24 Alkaline Phosphatase 250 H Total Protein 6.9 Albumin 3.6 Globulin 3.3 Albumin/Globulin Ratio 1.1 Triglycerides 176 H D Cholesterol 100 LDL Cholesterol Direct 43 HDL Cholesterol 24 L Assessment & Plan - Assessment and Plan (Free Text) Assessment: Appears to have CKD stage 111 according to calculated GFR US report reviewed. Both kidneys are slightly echogenic. No calculi Plan: Venous doppler is done. Report pending Avoid any nephrotoxic meds urine for microalb
--- NOTE | 2016-06-15 12:26 | CARD ---
APPROVED REPORT EKG Measurement Heart [id number] <Conclusion> Sinus rhythm with 1st degree AV block Possible Left atrial enlargement Left axis deviation Abnormal ECG
[2016-06-15] MEDS: Atazanavir 300 mg Cap PO SCH (15:23)
--- NOTE | 2016-06-15 18:27 | CP.PCM.PN ---
<Violeta Galaviz - Last Filed: 06/15/16 18:20> Subjective - Date & Time of Evaluation Date of Evaluation: 06/15/16 Time of Evaluation: 09:35 - Subjective Subjective: PGY1 on Dr Lea service: Patient seen and examined. Patient with complaint of constipation, states she takes lactulose at home. Patient also complaining of leg pain bilaterally, with right worse than left. Objective - Vital Signs/Intake and Output Vital Signs (last 24 hours): Temp Pulse Resp BP Pulse Ox 98.6 F 85 18 123/67 97 06/15/16 08:42 06/15/16 11:45 06/15/16 08:42 06/15/16 11:45 06/15/16 08:42 Intake and Output: 06/15/16 06/15/16 06:59 18:59 Intake Total 480 400 Output Total 1000 Balance -520 400 - Medications Medications: Current Medications Ascorbic Acid (Vitamin C 250 Mg Tab) 250 mg PO DAILY [facility] Last Admin: 06/15/16 10:44 Dose: 250 mg Aspirin (Ecotrin) 81 mg PO DAILY [facility] Last Admin: 06/15/16 10:44 Dose: 81 mg Atazanavir (Reyataz) 300 mg PO DAILY [facility] Last Admin: 06/15/16 15:23 Dose: 300 mg Bisacodyl (Dulcolax) 5 mg PO DAILY [facility] Last Admin: 06/15/16 10:44 Dose: Not Given Citalopram Hydrobromide (Celexa) 20 mg PO DAILY [facility] Last Admin: 06/15/16 10:45 Dose: 20 mg Clopidogrel Bisulfate (Plavix) 75 mg PO DAILY [facility] Last Admin: 06/15/16 10:45 Dose: 75 mg Enoxaparin Sodium (Lovenox) 30 mg SC DAILY [facility] Last Admin: 06/15/16 10:44 Dose: 30 mg Famotidine (Pepcid) 20 mg PO DAILY [facility] Last Admin: 06/15/16 10:44 Dose: 20 mg Ferrous Sulfate (Feosol) 325 mg PO DAILY [facility] Last Admin: 06/15/16 10:45 Dose: 325 mg Furosemide (Lasix) 40 mg IVP Q12 [facility] Last Admin: 06/15/16 10:44 Dose: 40 mg Home Med (Patient's Own Medication) 1 tab PO DAILY [facility] Last Admin: 06/15/16 10:44 Dose: 1 tab Insulin Detemir (Levemir) 10 unit SC HS [facility] Last Admin: 06/14/16 22:08 Dose: 10 unit Insulin Human Regular (Novolin R) 0 unit SC [facility] PRN Reason: Protocol Last Admin: 06/15/16 17:30 Dose: Not Given Levetiracetam (Keppra) 500 mg PO BID [facility] Last Admin: 06/15/16 17:38 Dose: 500 mg Metoprolol Succinate (Toprol Xl) 12.5 mg PO DAILY [facility] Last Admin: 06/15/16 10:44 Dose: Not Given Morphine Sulfate (Morphine) 2 mg IVP Q4 PRN PRN Reason: Pain, severe (8-10) Last Admin: 06/15/16 16:41 Dose: 2 mg Ritonavir (Norvir) 100 mg PO DAILY [facility] Last Admin: 06/15/16 10:45 Dose: 100 mg Rosuvastatin Calcium (Crestor) 5 mg PO [facility] Last Admin: 06/14/16 22:07 Dose: 5 mg Trazodone HCl (Desyrel) 100 mg PO [facility] Last Admin: 06/14/16 22:07 Dose: 100 mg - Labs Labs: 06/15/16 07:21 06/15/16 07:21 - Constitutional Appears: Non-toxic, No Acute Distress - Head Exam Head Exam: ATRAUMATIC, NORMOCEPHALIC - Eye Exam Eye Exam: EOMI - ENT Exam ENT Exam: Mucous Membranes Moist - Respiratory Exam Respiratory Exam: Clear to Ausculation Bilateral, NORMAL BREATHING PATTERN - Cardiovascular Exam Cardiovascular Exam: +S1, +S2 - GI/Abdominal Exam GI & Abdominal Exam: Soft, Normal Bowel Sounds. absent: Tenderness - Extremities Exam Extremities Exam: Pedal Edema Additional comments: pitting edema bilaterally with tenderness to palpation, right greater than left - Neurological Exam Neurological Exam: Alert, Awake - Psychiatric Exam Psychiatric exam: Normal Affect - Skin Skin Exam: Dry, Warm Assessment and Plan - Assessment and Plan (Free Text) Assessment: (1) Congestive heart failure Assessment & Plan: Echocardiogram- LA mildly dilated, normal LV wall motion, systolic function, EF 65-70%. Diastolic dysfunction grade 2 LA pressures, mild TR, mild pulmonary hypertension held enalapril secondary to acute kidney function Started on Metoprolol succinate XL 12.5mg PO Daily daily weights intake and out risk factors: diabetes and hypertension Fasting lipid panel: triglycerides 176, cholesterol 100, LDL 43, HDL 24 [id number] 7.6 TSH 0.59 WNL Lasix 40mg IV Q 12hours Aspirin 81mg PO daily started Crestor 5mg POqHS Status: Suspected (2) Acute on chronic kidney disease Assessment & Plan: 06/15/16 Patient discontinue IV fluids given leg swelling and weight gain pending renal US consult Nephro- Dr. Medina- patient CKD III by GFR of 40, will check urine microalbumin held enalapril in light of acute kidney injury hold NSAIDs Pending UA Status: Acute (3) Diabetes Assessment & Plan: [id number] 7.6 patient is on a long acting insulin: Levemir 10 units subHS; Novolog 6units tid will monitor accuchecks QAC and HS and medium dose insulin sliding scale Status: Acute (4) History of CVA (cerebrovascular accident) Assessment & Plan: Aspirin 81mg PO daily Plavix 75mg Po daily Keppra 500mg PO daily Fall precautions held janene-inhibitor secondary to acute kidney injury started crestor 5mg PO qHS PT eval Status: Chronic (5) HIV (human immunodeficiency virus infection) Assessment & Plan: Patient has a history of HIV; Compliant on medications; undetectable about 2 months ago; has had blood work drawn recently on ; on home medication: Descovy 200-250mg PO daily and Norvir 100mg PO daily and reyataz 300mg daily Status: Chronic (6) HTN (hypertension) Assessment & Plan: Patient is on IV fluids; held enalapril secondary to acute kidney injury, will monitor vitals and initiate accordingly Status: Chronic (7) Leg edema and leg pain Assessment & Plan: Echocardiogram- LA mildly dilated, normal LV wall motion, systolic function, EF 65-70%. Diastolic dysfunction grade 2 LA pressures, mild TR, mild pulmonary hypertension lower extremity dopplers- prelim- negative for DVT hx of prior DVT arterial dopplers not yet performed will check right knee and foot xrays, uric acid level lasix 4omg IV subq12 Stopped Gabapentin due to JASWANT Increased Morphine to 2mg IVP Q4h Status: Chronic (8) Anemia Assessment & Plan: Likely anemia of chronic disease, MCV 94.3 Hgb 10.2 Started on Feosol 325mg IVPB Daily Vitamin C 250mg PO Daily Iron 31, TIBC 383, % saturation 8, ferritin 11.6 (9) Prophylactic measure Assessment & Plan: DVT ppx: lovenox 30mg sc daily GI ppx:Pepcid 20mg Po daily PT/OT eval monitor daily weights and intake and outputs fall precautions Status: Chronic <JeanieRodney H - Last Filed: 06/15/16 18:58> Objective - Vital Signs/Intake and Output Vital Signs (last 24 hours): Temp Pulse Resp BP Pulse Ox 98.6 F 85 18 123/67 97 06/15/16 08:42 06/15/16 11:45 06/15/16 08:42 06/15/16 11:45 06/15/16 08:42 Intake and Output: 06/15/16 06/15/16 06:59 18:59 Intake Total 480 400 Output Total 1000 Balance -520 400 - Medications Medications: Current Medications Ascorbic Acid (Vitamin C 250 Mg Tab) 250 mg PO DAILY [facility] Last Admin: 06/15/16 10:44 Dose: 250 mg Aspirin (Ecotrin) 81 mg PO DAILY [facility] Last Admin: 06/15/16 10:44 Dose: 81 mg Atazanavir (Reyataz) 300 mg PO DAILY [facility] Last Admin: 06/15/16 15:23 Dose: 300 mg Bisacodyl (Dulcolax) 5 mg PO DAILY [facility] Last Admin: 06/15/16 10:44 Dose: Not Given Citalopram Hydrobromide (Celexa) 20 mg PO DAILY [facility] Last Admin: 06/15/16 10:45 Dose: 20 mg Clopidogrel Bisulfate (Plavix) 75 mg PO DAILY [facility] Last Admin: 06/15/16 10:45 Dose: 75 mg Enoxaparin Sodium (Lovenox) 30 mg SC DAILY [facility] Last Admin: 06/15/16 10:44 Dose: 30 mg Famotidine (Pepcid) 20 mg PO DAILY [facility] Last Admin: 06/15/16 10:44 Dose: 20 mg Ferrous Sulfate (Feosol) 325 mg PO DAILY [facility] Last Admin: 06/15/16 10:45 Dose: 325 mg Furosemide (Lasix) 40 mg IVP Q12 [facility] Last Admin: 06/15/16 10:44 Dose: 40 mg Home Med (Patient's Own Medication) 1 tab PO DAILY [facility] Last Admin: 06/15/16 10:44 Dose: 1 tab Insulin Detemir (Levemir) 10 unit SC [facility] Last Admin: 06/14/16 22:08 Dose: 10 unit Insulin Human Regular (Novolin R) 0 unit SC [facility] PRN Reason: Protocol Last Admin: 06/15/16 17:30 Dose: Not Given Levetiracetam (Keppra) 500 mg PO BID [facility] Last Admin: 06/15/16 17:38 Dose: 500 mg Metoprolol Succinate (Toprol Xl) 12.5 mg PO DAILY [facility] Last Admin: 06/15/16 10:44 Dose: Not Given Morphine Sulfate (Morphine) 2 mg IVP Q4 PRN PRN Reason: Pain, severe (8-10) Last Admin: 06/15/16 16:41 Dose: 2 mg Ritonavir (Norvir) 100 mg PO DAILY [facility] Last Admin: 06/15/16 10:45 Dose: 100 mg Rosuvastatin Calcium (Crestor) 5 mg PO [facility] Last Admin: 06/14/16 22:07 Dose: 5 mg Trazodone HCl (Desyrel) 100 mg PO [facility] Last Admin: 06/14/16 22:07 Dose: 100 mg - Labs Labs: 06/15/16 07:21 06/15/16 07:21 Attending/Attestation - Attestation I have personally seen and examined this patient.: Yes I have fully participated in the care of the patient.: Yes I have reviewed all pertinent clinical information, including history, physical exam and plan: Yes Notes (Text): Medical attending: Patient was seen and examined by me, agrees the above note by medical radiation dosimetrist. Review previous weeks notes, discuss with resident discussed with patient. At this time are to continue with IV Lasix given with regard to the patient's CHF. We have to also follow the patient's creatinine in case this Lasix causes further acute kidney injury. The JANENE inhibitor is currently held at this moment. In the meantime were to continue with the medication for her CVA history, as well as medication for her HIV history Thank you very much, Rodney Ware
[2016-06-15] MEDS: Insulin Detemir 100 units/ml Vial (Levemir) SC SCH (21:56)
[2016-06-16 06:07] LABS: BASO % 0.7 % (0.0-2.0); EOS # 0.3 K/uL (0.0-0.7); EOS % 5.7 % (0.0-4.0); HEMATOCRIT 32.4 % (34.0-47.0); LYMPH # 2.9 K/uL (1.0-4.3); LYMPH % 51.6 % (20.0-40.0); MEAN CELL VOLUME 92.7 fL (81.0-99.0); MEAN CORPUSCULAR HEMOGLOBIN 32.3 pg (27.0-31.0); MEAN CORPUSCULAR HGB CONC 34.9 g/dL (33.0-37.0); MONO # 0.6 K/uL (0.0-0.8); MONO % 10.7 % (0.0-10.0); RED CELL DISTRIBUTION WIDTH 13.5 % (11.5-14.5); WHITE BLOOD COUNT 5.7 K/uL (4.8-10.8)
[2016-06-16 06:13] LABS: POTASSIUM 4.7 mmol/L (3.6-5.2)
[2016-06-16 06:15] LABS: BILIRUBIN,TOTAL 1.1 mg/dL (0.2-1.3)
[2016-06-16 06:16] LABS: ALB/GLOB RATIO 1.2 (1.0-2.1); CALCIUM 8.7 mg/dl (8.6-10.4); MAGNESIUM 2.2 mg/dL (1.6-2.3); PHOSPHOROUS 4.7 mg/dL (2.5-4.5); TOTAL PROTEIN 7.3 g/dL (6.3-8.3)
[2016-06-16] MEDS: (Novolin R) Insulin Human Regular 100 units/ml vial SC SCH ×2 (07:43→12:37)
--- NOTE | 2016-06-16 08:53 | RAD ---
PROCEDURE: Right Knee Radiographs. HISTORY: right leg pain and swelling COMPARISON: None. FINDINGS: BONES: Mild generalized osteopenia. No fracture, dislocation or osseous destruction. JOINTS: Mild osteoarthritis. The medial femoral tibial joint space appears narrowed JOINT EFFUSION: None. OTHER FINDINGS: On the tunnel view, there are some calcifications/ ossifications projecting over the intercondylar fossa region. These may be superimposed vascular calcifications. These are difficult to appreciate as intra-articular in other projections.Atherosclerotic vascular calcifications are present. Subcutaneous mottled density consistent with lymphedema and/or cellulitis - posterior left thigh - noted. IMPRESSION: No periosteal reaction to suggest osteomyelitis noted. No gross osseous destruction appreciated . Generalized osteopenia Soft tissues/subcutaneous appearance consistent with cellulitis and/or lymphedema.
--- NOTE | 2016-06-16 08:58 | RAD ---
PROCEDURE: Right Foot Radiographs. HISTORY: right leg pain and swelling COMPARISON: None. FINDINGS: BONES: There is generalized osteopenia. No fracture or dislocation. Posterior calcaneal spurring. Hammertoe like orientations noted minimal dorsal talonavicular spurring. Prominence to the posterior talus - here in os trigonum is possible JOINTS: 1st metatarsal joint space narrowing with 1st metatarsal head hypertrophy -osteoarthrosis SOFT TISSUES: Soft tissues/subcutaneous appearance consistent with cellulitis and/or lymphedema. Findings most pronounced at the forefoot dorsally OTHER FINDINGS: None. IMPRESSION: No periosteal reaction to suggest osteomyelitis noted. No gross osseous destruction appreciated . Soft tissues/subcutaneous appearance consistent Calcaneal spur First metatarsal-phalangeal joint osteoarthrosis
--- NOTE | 2016-06-16 09:50 | VASCLAB ---
PROCEDURE: Lower Extremity Venous Duplex Exam. HISTORY: Bilateral leg edema PRIORS: 05/05/2016 TECHNIQUE: Bilateral common femoral, femoral, popliteal and posterior tibial, peroneal and great saphenous veins were evaluated. Flow was assessed with color Doppler, compressibility, assessment of phasic flow and augmentation response. Report prepared by PARAMJIT Burnett FINDINGS: RIGHT: 1. Common Femoral Vein: 1.1. Compressibility - Fully compressible: Thrombus - None : Flow - Phasic: Augmentation -Normal: Reflux - None. 2. Femoral Vein: 2.1. Compressibility - Fully compressible: Thrombus - None : Flow - Phasic: Augmentation -Normal: Reflux - None. 3. Popliteal Vein: 3.1. Compressibility - Fully compressible: Thrombus - None : Flow - Phasic: Augmentation -Normal: Reflux - None. 4. Posterior Tibial Vein: 4.1. Compressibility - Fully compressible: Thrombus - None: Flow - Phasic: Augmentation -Normal: Reflux - None. 5. Peroneal Vein: 5.1. Compressibility - Fully compressible: Thrombus - None: Flow - Phasic: Augmentation -Normal: Reflux - None. 6. Great Saphenous Vein: 6.1. Compressibility - Fully compressible: Thrombus - None: Flow - Phasic: Augmentation - Normal: Reflux - None. LEFT: 1. Common Femoral Vein: 1.1. Compressibility - Fully compressible: Thrombus - None: Flow - Phasic: Augmentation -Normal: Reflux - None. 2. Femoral Vein: 2.1. Compressibility - Fully compressible: Thrombus - None: Flow - Phasic: Augmentation -Normal: Reflux - None. 3. Popliteal Vein: 3.1. Compressibility - Fully compressible: Thrombus - None : Flow - Phasic: Augmentation -Normal: Reflux - None. 4. Posterior Tibial Vein: 4.1. Compressibility - Fully compressible: Thrombus - None: Flow - Phasic: Augmentation -Normal: Reflux - None. 5. Peroneal Vein: 5.1. Compressibility - Fully compressible: Thrombus - None: Flow - Phasic: Augmentation -Normal: Reflux - None. 6. Great Saphenous Vein: 6.1. Compressibility - Fully compressible: Thrombus - None: Flow - Phasic: Augmentation - Normal: Reflux - None. OTHER FINDINGS: Right: None significant. Left: None significant. IMPRESSION: Right: No evidence of deep or superficial vein thrombosis of the right lower extremity. Normal valve function noted of the right side. Left: No evidence of deep or superficial vein thrombosis of the left lower extremity. Normal valve function noted of the left side.
--- NOTE | 2016-06-16 09:53 | VASCLAB ---
STUDY DESCRIPTION: HISTORY: bilateral LE pain, Rule out PVD PRIORS: None. TECHNIQUE: Pulse volume recording waveforms and segmental pressures of bilateral lower extremities at multiple levels were obtained. Ankle Brachial Indices (ABIs) were calculated. Report prepared by ZI Quinonez, RVT RIGHT LOWER EXTREMITY: * Brachial artery: Pressure - 134 mmHg. * High thigh: Pressure - 167 mmHg: Ratio - 1.25: PVR waveform - Pulsatile * Low thigh: Pressure - 170 mmHg: Ratio - 1.27 PVR waveform: Pulsatile * Calf: Pressure - 154 mmHg: Ratio - 1.15 PVR waveform: Pulsatile * Posterior tibial Artery: Pressure - 149 mmHg: Ratio - 1.11 PVR waveform: Pulsatile * Dorsalis pedis Artery: Pressure - 153 mmHg: Ratio - 1.14 PVR waveform: Pulsatile Ankle brachial index (JERONIMO): 1.14 LEFT LOWER EXTREMITY: * Brachial artery: Pressure - 134 mmHg. * High thigh: Pressure - 177 mmHg: Ratio - 1.32: PVR waveform - Pulsatile * Low thigh: Pressure - 169 mmHg: Ratio - 1.26 PVR waveform: Pulsatile * Calf: Pressure - 159 mmHg: Ratio - 1.19 PVR waveform: Pulsatile * Posterior tibial Artery: Pressure - 158 mmHg: Ratio - 1.18 PVR waveform: Pulsatile * Dorsalis pedis Artery: Pressure - 160 mmHg: Ratio - 1.19 PVR waveform: Pulsatile Ankle brachial index (JERONIMO): 1.19 OTHER FINDINGS: None significant. IMPRESSION: Right: There was no evidence of hemodynamically significant arterial insufficiency in the right lower extremity. Left: There was no evidence of hemodynamically significant arterial insufficiency in the left lower extremity.
--- NOTE | 2016-06-16 10:34 | CP.PCM.CON ---
History of Present Illness - History of Present Illness History of Present Illness: No SOB Feels better Past Patient History - Infectious Disease Hx of Infectious Diseases: None - Past Medical History & Family History Past Medical History?: Yes - Past Social History Smoking Status: Former Smoker - CARDIAC Hx Cardiac Disorders: Yes Hx Hypercholesterolemia: Yes Hx Hypertension: Yes - PULMONARY Hx Bronchitis: Yes - NEUROLOGICAL HX Cerebrovascular Accident: Yes (right sided weakness) - HEENT Hx HEENT Problems: No - RENAL Hx Chronic Kidney Disease: No - ENDOCRINE/METABOLIC Hx Diabetes Mellitus Type 1: Yes Hx Diabetes Mellitus Type 2: Yes - HEMATOLOGICAL/ONCOLOGICAL Hx Human Immunodeficiency Virus (HIV): Yes (T's>500 V's undectatable) - INTEGUMENTARY Hx Dermatological Problems: No - MUSCULOSKELETAL/RHEUMATOLOGICAL Hx Arthritis: Yes - GASTROINTESTINAL Hx Gastrointestinal Disorders: No - GENITOURINARY/GYNECOLOGICAL Hx Genitourinary Disorders: No - PSYCHIATRIC Hx Substance Use: No - SURGICAL HISTORY Hx Cholecystectomy: Yes - ANESTHESIA Hx Anesthesia: Yes Hx Anesthesia Reactions: No Hx Malignant Hyperthermia: No Meds Allergies/Adverse Reactions: Allergies Allergy/AdvReac Type Severity Reaction Status Date / Time ciprofloxacin Allergy Unknown Verified 06/13/16 00:46 - Medications Medications: Current Medications Ascorbic Acid (Vitamin C 250 Mg Tab) 250 mg PO DAILY [facility] Last Admin: 06/15/16 10:44 Dose: 250 mg Aspirin (Ecotrin) 81 mg PO DAILY [facility] Last Admin: 06/15/16 10:44 Dose: 81 mg Atazanavir (Reyataz) 300 mg PO DAILY [facility] Last Admin: 06/15/16 15:23 Dose: 300 mg Bisacodyl (Dulcolax) 5 mg PO DAILY [facility] Last Admin: 06/15/16 10:44 Dose: Not Given Citalopram Hydrobromide (Celexa) 20 mg PO DAILY [facility] Last Admin: 06/15/16 10:45 Dose: 20 mg Clopidogrel Bisulfate (Plavix) 75 mg PO DAILY [facility] Last Admin: 06/15/16 10:45 Dose: 75 mg Enoxaparin Sodium (Lovenox) 30 mg SC DAILY [facility] Last Admin: 06/15/16 10:44 Dose: 30 mg Famotidine (Pepcid) 20 mg PO DAILY [facility] Last Admin: 06/15/16 10:44 Dose: 20 mg Ferrous Sulfate (Feosol) 325 mg PO DAILY [facility] Last Admin: 06/15/16 10:45 Dose: 325 mg Furosemide (Lasix) 40 mg IVP Q12 [facility] Last Admin: 06/15/16 22:30 Dose: Not Given Home Med (Patient's Own Medication) 1 tab PO DAILY [facility] Last Admin: 06/15/16 10:44 Dose: 1 tab Insulin Detemir (Levemir) 10 unit SC [facility] Last Admin: 06/15/16 21:56 Dose: 10 unit Insulin Human Regular (Novolin R) 0 unit SC [facility] PRN Reason: Protocol Last Admin: 06/16/16 07:43 Dose: Not Given Levetiracetam (Keppra) 500 mg PO BID [facility] Last Admin: 06/15/16 17:38 Dose: 500 mg Metoprolol Succinate (Toprol Xl) 12.5 mg PO DAILY [facility] Last Admin: 06/15/16 10:44 Dose: Not Given Morphine Sulfate (Morphine) 2 mg IVP Q4 PRN PRN Reason: Pain, severe (8-10) Last Admin: 06/16/16 09:22 Dose: 2 mg Ritonavir (Norvir) 100 mg PO DAILY [facility] Last Admin: 06/15/16 10:45 Dose: 100 mg Rosuvastatin Calcium (Crestor) 5 mg PO [facility] Last Admin: 06/15/16 21:46 Dose: 5 mg Trazodone HCl (Desyrel) 100 mg PO [facility] Last Admin: 06/15/16 21:48 Dose: 100 mg Physical Exam - Respiratory Exam Respiratory Exam: NORMAL BREATHING PATTERN Additional comments: Lungs clearr - Cardiovascular Exam Cardiovascular Exam: Irregular Rhythm, REGULAR RHYTHM Additional comments: Regular rythm 78/min - Extremities Exam Additional comments: No edemaBipedal edema Lt > Rt Results - Vital Signs Recent Vital Signs: Last Vital Signs Temp 98.0 F 06/16/16 07:05 Pulse 78 06/16/16 07:05 Resp 20 06/16/16 07:05 BP 130/69 06/16/16 07:05 Pulse Ox 98 06/16/16 07:05 - Labs Result Diagrams: 06/16/16 05:59 06/16/16 05:59 Labs: Laboratory Results - last 24 hr 06/13/16 06/13/16 06/15/16 11:32 11:41 11:19 WBC RBC Hgb Hct MCV MCH MCHC RDW Plt Count MPV Neut % (Auto) Lymph % (Auto) [place] % (Auto) Eos % (Auto) Baso % (Auto) Neut # Lymph # [place] # Eos # Baso # Sodium Potassium Chloride Carbon Dioxide Anion Gap BUN Creatinine Est GFR ( Amer) Est GFR (Non-Af Amer) POC Glucose (mg/dL) 166 H Random Glucose Uric Acid Calcium Phosphorus Magnesium Total Bilirubin AST ALT Alkaline Phosphatase Total Protein Albumin Globulin Albumin/Globulin Ratio U Random Total Protein 13.6 H Urine Microalbumin Absolute Lymphs (Flow) 3978 H % CD4 Cells 30 Absolute CD4 Count 1208 T-Help/Suppress Ratio 0.49 L % CD8 Cells 62 H Absolute CD8 Count 2463 H 06/15/16 06/15/16 06/15/16 13:11 15:54 16:52 WBC RBC Hgb Hct MCV MCH MCHC RDW Plt Count MPV Neut % (Auto) Lymph % (Auto) [place] % (Auto) Eos % (Auto) Baso % (Auto) Neut # Lymph # [place] # Eos # Baso # Sodium Potassium Chloride Carbon Dioxide Anion Gap BUN Creatinine Est GFR ( Amer) Est GFR (Non-Af Amer) POC Glucose (mg/dL) 112 H Random Glucose Uric Acid 7.9 H Calcium Phosphorus Magnesium Total Bilirubin AST ALT Alkaline Phosphatase Total Protein Albumin Globulin Albumin/Globulin Ratio U Random Total Protein Urine Microalbumin < 6.0 Absolute Lymphs (Flow) % CD4 Cells Absolute CD4 Count T-Help/Suppress Ratio % CD8 Cells Absolute CD8 Count 06/15/16 06/16/16 06/16/16 20:57 05:59 06:22 WBC 5.7 RBC 3.50 L Hgb 11.3 Hct 32.4 L MCV 92.7 MCH 32.3 H MCHC 34.9 RDW 13.5 Plt Count 358 MPV 7.0 L Neut % (Auto) 31.3 L Lymph % (Auto) 51.6 H [place] % (Auto) 10.7 H Eos % (Auto) 5.7 H Baso % (Auto) 0.7 Neut # 1.8 Lymph # 2.9 [place] # 0.6 Eos # 0.3 Baso # 0.0 Sodium 141 Potassium 4.7 Chloride 102 Carbon Dioxide 29 Anion Gap 15 BUN 25 H Creatinine 1.6 H Est GFR ( Amer) 40 Est GFR (Non-Af Amer) 33 POC Glucose (mg/dL) 176 H 103 Random Glucose 98 Uric Acid Calcium 8.7 Phosphorus 4.7 H Magnesium 2.2 Total Bilirubin 1.1 AST 15 ALT 22 Alkaline Phosphatase 252 H Total Protein 7.3 Albumin 3.9 Globulin 3.3 Albumin/Globulin Ratio 1.2 U Random Total Protein Urine Microalbumin Absolute Lymphs (Flow) % CD4 Cells Absolute CD4 Count T-Help/Suppress Ratio % CD8 Cells Absolute CD8 Count Assessment & Plan - Assessment and Plan (Free Text) Assessment: CRF. renal function is stable Pedal edema. DVT ruled out HIV infection. Plan: Continue to monitor renal function
[2016-06-16] MEDS: Enoxaparin 30 mg Syringe SC SCH (10:57)
[2016-06-16] MEDS: Bisacodyl 5mg EC Tab PO SCH (10:58)
[2016-06-16] MEDS: Metoprolol Succinate 12.5 mg XL PO SCH (10:58)
[2016-06-16] MEDS: Atazanavir 300 mg Cap PO SCH (10:58)
[2016-06-16] MEDS ORDERED: TENOFOVIR ALAFENAMIDE 25 MG PO SCH (11:30)
[2016-06-16] MEDS ORDERED: EMTRICITABINE 200 MG PO SCH (11:30)
--- NOTE | 2016-06-16 14:44 | CP.PCM.DIS ---
<Violeta Galaviz - Last Filed: 06/16/16 16:51> Provider - Provider Date of Admission: 06/13/16 06:21 Attending physician: Rodney Ware DO Primary care physician: Dr. Segura Consults: Dr. Carol Underwood Time Spent in preparation of Discharge (in minutes): 40 Diagnosis - Discharge Diagnosis (1) Congestive heart failure Status: Chronic Comment: Diastolic dysfunction seen on echo: LA mildly dilated, normal LV wall motion, systolic function, EF 65-70%. Diastolic dysfunction grade 2 LA pressures , mild TR, mild pulmonary hypertension. Patient to follow up with PMD Dr. Segura within 1 week . (2) Anemia Status: Chronic Comment: Likely anemia of chronic disease, MCV 94.3 (3) Diabetes Status: Acute Comment: [id number] 7.6. patient is on a long acting insulin: Levemir 10 units subHS; Novolog 6units tid (4) HIV (human immunodeficiency virus infection) Status: Chronic Comment: %CD4: 30, absolute CD4: 1208. %CD8: 62, absolute CD8: 2463. absolute lymphocytes: 3978. Patient without history AIDS. Patient to continue home medications, norvir, descovy, reyataz. Patient to have follow up appointment with Dr. Tay, her infectious disease doctor on 06/18/16. (5) HTN (hypertension) Status: Chronic Comment: Patient to continue metoprolol and norvasc. Patient advised to stop enalapril due to CKD. (6) Leg edema Status: Chronic Comment: lower extremity dopplers- negative for DVT. arterial dopplers negative. xrays negative (7) History of CVA (cerebrovascular accident) Status: Chronic Comment: Patient to continue Aspirin 81mg PO daily. Plavix 75mg Po daily. Keppra 500mg PO daily (8) Acute on chronic renal insufficiency Status: Acute Comment: Renal US: underlying medical renal disease. CKD III by GFR of 40. patient to stop use of enalapril Hospital Course - Lab Results Lab Results: Most Recent Lab Values WBC 5.7 K/uL (4.8-10.8) 06/16/16 05:59 RBC 3.50 Mil/uL (3.80-5.20) L 06/16/16 05:59 Hgb 11.3 g/dL (11.0-16.0) 06/16/16 05:59 Hct 32.4 % (34.0-47.0) L 06/16/16 05:59 MCV 92.7 fL (81.0-99.0) 06/16/16 05:59 MCH 32.3 pg (27.0-31.0) H 06/16/16 05:59 MCHC 34.9 g/dL (33.0-37.0) 06/16/16 05:59 RDW 13.5 % (11.5-14.5) 06/16/16 05:59 Plt Count 358 K/uL (130-400) 06/16/16 05:59 MPV 7.0 fL (7.2-11.7) L 06/16/16 05:59 Neut % (Auto) 31.3 % (50.0-75.0) L 06/16/16 05:59 Lymph % (Auto) 51.6 % (20.0-40.0) H 06/16/16 05:59 [place] % (Auto) 10.7 % (0.0-10.0) H 06/16/16 05:59 Eos % (Auto) 5.7 % (0.0-4.0) H 06/16/16 05:59 Baso % (Auto) 0.7 % (0.0-2.0) 06/16/16 05:59 Neut # 1.8 K/uL (1.8-7.0) 06/16/16 05:59 Lymph # 2.9 K/uL (1.0-4.3) 06/16/16 05:59 [place] # 0.6 K/uL (0.0-0.8) 06/16/16 05:59 Eos # 0.3 K/uL (0.0-0.7) 06/16/16 05:59 Baso # 0.0 K/uL (0.0-0.2) 06/16/16 05:59 Sodium 141 mmol/L (132-148) 06/16/16 05:59 Potassium 4.7 mmol/L (3.6-5.2) 06/16/16 05:59 Chloride 102 mmol/L (98-107) 06/16/16 05:59 Carbon Dioxide 29 mmol/L (22-30) 06/16/16 05:59 Anion Gap 15 (10-20) 06/16/16 05:59 BUN 25 mg/dL (7-17) H 06/16/16 05:59 Creatinine 1.6 MG/DL (0.7-1.2) H 06/16/16 05:59 Est GFR ( Amer) 40 06/16/16 05:59 Est GFR (Non-Af Amer) 33 06/16/16 05:59 POC Glucose (mg/dL) 151 mg/dL (65-110) H 06/16/16 11:22 Random Glucose 98 mg/dL (65-105) 06/16/16 05:59 Hemoglobin A1c 7.6 % (4.2-6.5) H 06/13/16 11:41 Uric Acid 7.9 mg/dL (2.2-7.5) H 06/15/16 15:54 Calcium 8.7 mg/dl (8.6-10.4) 06/16/16 05:59 Phosphorus 4.7 mg/dL (2.5-4.5) H 06/16/16 05:59 Magnesium 2.2 mg/dL (1.6-2.3) 06/16/16 05:59 Iron 31 ug/dL (37-170) L 06/14/16 08:22 TIBC 383 ug/dL (250-450) 06/14/16 08:22 % Saturation 8 (20-55) L 06/14/16 08:22 Ferritin 11.6 ng/mL 06/14/16 08:22 Total Bilirubin 1.1 mg/dL (0.2-1.3) 06/16/16 05:59 Direct Bilirubin 0.4 mg/dL (0.0-0.4) 06/13/16 11:41 AST 15 U/L (14-36) 06/16/16 05:59 ALT 22 U/L (9-52) 06/16/16 05:59 Alkaline Phosphatase 252 U/L (38-126) H 06/16/16 05:59 NT-Pro-B Natriuret Pep 675 pg/mL (0-900) 06/13/16 01:28 Total Protein 7.3 g/dL (6.3-8.3) 06/16/16 05:59 Albumin 3.9 g/dL (3.5-5.0) 06/16/16 05:59 Globulin 3.3 gm/dL (2.2-3.9) 06/16/16 05:59 Albumin/Globulin Ratio 1.2 (1.0-2.1) 06/16/16 05:59 Triglycerides 176 mg/dL (0-149) H D 06/15/16 07:21 Cholesterol 100 mg/dL (0-199) 06/15/16 07:21 LDL Cholesterol Direct 43 mg/dL (0-129) 06/15/16 07:21 HDL Cholesterol 24 mg/dL (30-70) L 06/15/16 07:21 Vitamin B12 265 pg/mL (239-931) 06/14/16 08:22 Folate 4.5 ng/mL 06/14/16 08:22 TSH 3rd Generation 0.59 mIU/L (0.46-4.68) 06/13/16 11:41 Urine Color Straw (YELLOW) 06/13/16 11:32 Urine Clarity Clear (Clear) 06/13/16 11:32 Urine pH 6.0 (5.0-8.0) 06/13/16 11:32 Ur Specific [place] 1.005 (1.003-1.030) 06/13/16 11:32 Urine Protein Negative mg/dL (NEGATIVE) 06/13/16 11:32 Urine Glucose (UA) Normal mg/dL (Normal) 06/13/16 11:32 Urine Ketones Negative mg/dL (NEGATIVE) 06/13/16 11:32 Urine Blood Negative (NEGATIVE) 06/13/16 11:32 Urine Nitrate Negative (NEGATIVE) 06/13/16 11:32 Urine Bilirubin Negative (NEGATIVE) 06/13/16 11:32 Urine Urobilinogen Normal mg/dL (0.2-1.0) 06/13/16 11:32 Ur Leukocyte Esterase Neg Renetta/uL (Negative) 06/13/16 11:32 Urine WBC (Auto) < 1 /hpf (0-5) 06/13/16 11:32 Urine RBC (Auto) < 1 /hpf (0-3) 06/13/16 11:32 Ur Squamous Epith Cells < 1 /hpf (0-5) 06/13/16 11:32 Urine Osmolality 293 mosm/kg (300-1000) L 06/13/16 11:32 Ur Random Creatinine 18.9 mg/dL 06/13/16 11:32 U Random Total Protein 13.6 mg/dL (0.0-12.0) H 06/13/16 11:32 Ur Random Sodium 113 mmol/L 06/13/16 11:32 Ur Random Potassium 15.8 mmol/L 06/13/16 11:32 Ur Random Glucose < 20 mg/dL 06/13/16 11:32 Urine Microalbumin < 6.0 mg/L (0.0-16.6) 06/15/16 13:11 Absolute Lymphs (Flow) 3978 Cells/mcL (850-3900) H 06/13/16 11:41 % CD4 Cells 30 Percent (30-61) 06/13/16 11:41 Absolute CD4 Count 1208 Cells/mcL (490-1740) 06/13/16 11:41 T-Help/Suppress Ratio 0.49 Ratio (0.86-5.00) L 06/13/16 11:41 % CD8 Cells 62 Percent (12-42) H 06/13/16 11:41 Absolute CD8 Count 2463 Cells/mcL (180-1170) H 06/13/16 11:41 - Hospital Course Hospital Course: On Admission: This is a 61yo F patient with a PMH notable for HIV, HTN, DM, depression, hypercholesterolemia, anemia, DVT, and CVA presenting for medical evaluation of B/L lower extremity edema and pain for 1 week that became acutely worse 2 days ago. The patient notes that she was sitting in [employer] with a friend when she noticed that her legs were more swollen than normal, Right greater than Left. The patient subsequently had difficulty walking secondary to pain. The patient noted that she started a new HIV medication, Descovy, 2 months ago and started to notice incrementally more swelling in her legs since then. In addition to the swelling, the patient notes that she has become increasingly shot of breath on exertion. She states that normally she was able to walk about 2 blocks before becoming short of breath. She also states that she has had constant abdominal pain for the last two days, unintentional weight gain, cold intolerance, and constipation, but notes that her leg pain and swelling is her primary concern. The patient tried to use compression stockings at home, but was unable to get them on due to the swelling. The patient has noted no alleviating factors and sites walking as an exacerbating factor. The patient denies fever, chills, chest pain, palpitations, cough, N/V/D/C, changes in bowel /bladder habits, and extremity paresthesias. During Hospitalization: To evaluate lower extremity edema the following workup was completed: Patient had Echocardiogram for evaluation of lower extremity edema. LA mildly dilated, normal LV wall motion, systolic function, EF 65-70%. Diastolic dysfunction grade 2 LA pressures, mild TR, mild pulmonary hypertension Patient had lower extremity venous and arterial dopplers. Venous dopplers negative for DVT. Arterial dopplers negative for disease. right knee xray:osteopenia, soft tissue soft tissue, subcutaneous appearance consistent with cellulitis and/or lymphedema right foot xray: heel spur, osteoarthrosis 1st metatarsal phalangeal joint Patient was evaluated by vehicle leasing and rental manager Dr. Medina for kidney injury. By GFR of 40 , patient is CKD III. Patient was advised to discontinue home enalapril. Renal US: underlying medical renal disease Labs: %CD4: 30, absolute CD4: 1208 %CD8: 62, absolute CD8: 2463 absolute lymphocytes: 3978 Hgb A1cc: 7.6 Lipid profile: Triglycerides 176 Cholesterol 100 LDL 43 HDL 24 Uric Acid 7.9 On Discharge: Patient is stable for discharge home per Dr. Ware. Patient has follow up appointment with Dr. Tay at [facility] on 06/18/16 for follow up of her HIV. Patient will need to follow up with her PMD Dr. Segura within the next week. Patient is advised to discontinue enalapril due to her chronic kidney disease. Patient can resume all other home medications. Patient states she does not need refills of her medications. Patient states she has an unfilled prescription for tramadol at home which she is advised to fill. Patient advised to avoid salt intake and limit fluid intake. Patient given ALICE stockings in hospital which she can continue to wear at home. Patient should return to the ER if her symptoms reoccur or worsen. This was explained to the patient who understands and agrees This is only a summary of patient's hospitalization for more detail please see complete record. - Date & Time of H&P Date of H&P: 06/13/16 Time of H&P: 07:20 Discharge Exam - Head Exam Head Exam: ATRAUMATIC, NORMOCEPHALIC - Eye Exam Eye Exam: EOMI - ENT Exam ENT Exam: Mucous Membranes Moist - Respiratory Exam Respiratory Exam: Clear to PA & Lateral, NORMAL BREATHING PATTERN, UNREMARKABLE - Cardiovascular Exam Cardiovascular Exam: +S1, +S2 - GI/Abdominal Exam GI & Abdominal Exam: Normal Bowel Sounds, Soft. absent: Firm, Guarding, Tenderness - Extremities Exam Additional comments: mild edema bilaterally, improved from prior exams patient with mild tenderness to palpation of lower extremities - Neurological Exam Neurological exam: Alert - Psychiatric Exam Psychiatric exam: Normal Affect - Skin Skin Exam: Dry, Warm Discharge Plan - Follow Up Plan Condition: STABLE Disposition: HOME/ ROUTINE Instructions: Heart Failure (DC), Acute Kidney Injury (DC), Renal Failure Diet (DC), Heart Healthy Diet (DC), Edema (DC) Additional Instructions: Patient is stable for discharge home per Dr. Ware. Patient has follow up appointment with Dr. Tay at [facility] on 06/18/16 for follow up of her HIV. Patient will need to follow up with her PMD Dr. Segura within the next week. Patient is advised to discontinue enalapril due to her chronic kidney disease. Patient can resume all other home medications. Patient states she does not need refills of her medications. Patient states she has an unfilled prescription for tramadol at home which she is advised to fill. Patient advised to avoid salt intake and limit fluid intake. Patient given ALICE stockings in hospital which she can continue to wear at home. Patient should return to the ER if her symptoms reoccur or worsen. This was explained to the patient who understands and agrees. Referrals: [facility], Dr. Tay [Other] - 06/18/16 Jordin Segura MD [Medical Doctor] - 1 Week Clinical Quality Measures - CQM - Heart Failure Ejection Fraction: 40 % or Greater Left Ventricular Function to be assessed after discharge: No JANENE Inhibitor Prescribed: No Contraindication/Reason for not providing: chronic kidney disease Beta-Aurelia Prescribed: Metoprolol Succinate Angiotensin II Receptor Aurelia Prescribed: No Contraindication/Reason for not providing: CKD AnticoagulationTherapy for Atrial Fibrillation/Atrialflutter: Yes Aldosterone Antagonist Prescribed: No Contraindication/Reason for not providing: not indicated Hydralazine Nitrate Prescribed: No Contraindication/Reason for not providing: not indicated Implantable Cardioverter Defibrillator Therapy: No Contraindication/Reason for not providing: not indicated Cardiac Resynchronization Therapy Prescribed: No Contraindication/Reason for not providing: not indicated Will be discharged to: Home Follow Up Date (must be within 7 days from discharge): 06/18/16 Follow Up Time: 09:00 <Rodney Ware - Last Filed: 06/17/16 13:06> Provider - Provider Date of Admission: 06/13/16 06:21 Attending physician: Rodney Ware DO Hospital Course - Lab Results Lab Results: Most Recent Lab Values WBC 5.7 K/uL (4.8-10.8) 06/16/16 05:59 RBC 3.50 Mil/uL (3.80-5.20) L 06/16/16 05:59 Hgb 11.3 g/dL (11.0-16.0) 06/16/16 05:59 Hct 32.4 % (34.0-47.0) L 06/16/16 05:59 MCV 92.7 fL (81.0-99.0) 06/16/16 05:59 MCH 32.3 pg (27.0-31.0) H 06/16/16 05:59 MCHC 34.9 g/dL (33.0-37.0) 06/16/16 05:59 RDW 13.5 % (11.5-14.5) 06/16/16 05:59 Plt Count 358 K/uL (130-400) 06/16/16 05:59 MPV 7.0 fL (7.2-11.7) L 06/16/16 05:59 Neut % (Auto) 31.3 % (50.0-75.0) L 06/16/16 05:59 Lymph % (Auto) 51.6 % (20.0-40.0) H 06/16/16 05:59 [place] % (Auto) 10.7 % (0.0-10.0) H 06/16/16 05:59 Eos % (Auto) 5.7 % (0.0-4.0) H 06/16/16 05:59 Baso % (Auto) 0.7 % (0.0-2.0) 06/16/16 05:59 Neut # 1.8 K/uL (1.8-7.0) 06/16/16 05:59 Lymph # 2.9 K/uL (1.0-4.3) 06/16/16 05:59 [place] # 0.6 K/uL (0.0-0.8) 06/16/16 05:59 Eos # 0.3 K/uL (0.0-0.7) 06/16/16 05:59 Baso # 0.0 K/uL (0.0-0.2) 06/16/16 05:59 Sodium 141 mmol/L (132-148) 06/16/16 05:59 Potassium 4.7 mmol/L (3.6-5.2) 06/16/16 05:59 Chloride 102 mmol/L (98-107) 06/16/16 05:59 Carbon Dioxide 29 mmol/L (22-30) 06/16/16 05:59 Anion Gap 15 (10-20) 06/16/16 05:59 BUN 25 mg/dL (7-17) H 06/16/16 05:59 Creatinine 1.6 MG/DL (0.7-1.2) H 06/16/16 05:59 Est GFR ( Amer) 40 06/16/16 05:59 Est GFR (Non-Af Amer) 33 06/16/16 05:59 POC Glucose (mg/dL) 151 mg/dL (65-110) H 06/16/16 11:22 Random Glucose 98 mg/dL (65-105) 06/16/16 05:59 Hemoglobin A1c 7.6 % (4.2-6.5) H 06/13/16 11:41 Uric Acid 7.9 mg/dL (2.2-7.5) H 06/15/16 15:54 Calcium 8.7 mg/dl (8.6-10.4) 06/16/16 05:59 Phosphorus 4.7 mg/dL (2.5-4.5) H 06/16/16 05:59 Magnesium 2.2 mg/dL (1.6-2.3) 06/16/16 05:59 Iron 31 ug/dL (37-170) L 06/14/16 08:22 TIBC 383 ug/dL (250-450) 06/14/16 08:22 % Saturation 8 (20-55) L 06/14/16 08:22 Ferritin 11.6 ng/mL 06/14/16 08:22 Total Bilirubin 1.1 mg/dL (0.2-1.3) 06/16/16 05:59 Direct Bilirubin 0.4 mg/dL (0.0-0.4) 06/13/16 11:41 AST 15 U/L (14-36) 06/16/16 05:59 ALT 22 U/L (9-52) 06/16/16 05:59 Alkaline Phosphatase 252 U/L (38-126) H 06/16/16 05:59 NT-Pro-B Natriuret Pep 675 pg/mL (0-900) 06/13/16 01:28 Total Protein 7.3 g/dL (6.3-8.3) 06/16/16 05:59 Albumin 3.9 g/dL (3.5-5.0) 06/16/16 05:59 Globulin 3.3 gm/dL (2.2-3.9) 06/16/16 05:59 Albumin/Globulin Ratio 1.2 (1.0-2.1) 06/16/16 05:59 Triglycerides 176 mg/dL (0-149) H D 06/15/16 07:21 Cholesterol 100 mg/dL (0-199) 06/15/16 07:21 LDL Cholesterol Direct 43 mg/dL (0-129) 06/15/16 07:21 HDL Cholesterol 24 mg/dL (30-70) L 06/15/16 07:21 Vitamin B12 265 pg/mL (239-931) 06/14/16 08:22 Folate 4.5 ng/mL 06/14/16 08:22 TSH 3rd Generation 0.59 mIU/L (0.46-4.68) 06/13/16 11:41 Urine Color Straw (YELLOW) 06/13/16 11:32 Urine Clarity Clear (Clear) 06/13/16 11:32 Urine pH 6.0 (5.0-8.0) 06/13/16 11:32 Ur Specific [place] 1.005 (1.003-1.030) 06/13/16 11:32 Urine Protein Negative mg/dL (NEGATIVE) 06/13/16 11:32 Urine Glucose (UA) Normal mg/dL (Normal) 06/13/16 11:32 Urine Ketones Negative mg/dL (NEGATIVE) 06/13/16 11:32 Urine Blood Negative (NEGATIVE) 06/13/16 11:32 Urine Nitrate Negative (NEGATIVE) 06/13/16 11:32 Urine Bilirubin Negative (NEGATIVE) 06/13/16 11:32 Urine Urobilinogen Normal mg/dL (0.2-1.0) 06/13/16 11:32 Ur Leukocyte Esterase Neg Renetta/uL (Negative) 06/13/16 11:32 Urine WBC (Auto) < 1 /hpf (0-5) 06/13/16 11:32 Urine RBC (Auto) < 1 /hpf (0-3) 06/13/16 11:32 Ur Squamous Epith Cells < 1 /hpf (0-5) 06/13/16 11:32 Urine Osmolality 293 mosm/kg (300-1000) L 06/13/16 11:32 Ur Random Creatinine 18.9 mg/dL 06/13/16 11:32 U Random Total Protein 13.6 mg/dL (0.0-12.0) H 06/13/16 11:32 Ur Random Sodium 113 mmol/L 06/13/16 11:32 Ur Random Potassium 15.8 mmol/L 06/13/16 11:32 Ur Random Glucose < 20 mg/dL 06/13/16 11:32 Urine Microalbumin < 6.0 mg/L (0.0-16.6) 06/15/16 13:11 Stool Occult Blood Negative (NEGATIVE) 06/16/16 17:21 Absolute Lymphs (Flow) 3978 Cells/mcL (850-3900) H 06/13/16 11:41 % CD4 Cells 30 Percent (30-61) 06/13/16 11:41 Absolute CD4 Count 1208 Cells/mcL (490-1740) 06/13/16 11:41 T-Help/Suppress Ratio 0.49 Ratio (0.86-5.00) L 06/13/16 11:41 % CD8 Cells 62 Percent (12-42) H 06/13/16 11:41 Absolute CD8 Count 2463 Cells/mcL (180-1170) H 06/13/16 11:41 Attending/Attestation - Attestation I have personally seen and examined this patient.: Yes I have fully participated in the care of the patient.: Yes I have reviewed all pertinent clinical information, including history, physical exam and plan: Yes Notes (Text): Medical attending: Patient was seen and examined by me, agrees the above note by medical affairs specialist. The patient has had negative venous Dopplers and negative arterial Dopplers of the lower extremity. We also did x-ray imaging of the bones the lower extremity and these are negative for any infections or fractures Patient is on oral Lasix for which she should continue taking she will need to follow-up with her primary doctor as well as with infectious disease. She is are taking medication for HIV and she needs to continue this thank you Rodney Ware
[2016-06-16 15:43] VITALS: BP 123/72; PULSE 82; RESP 20; TEMP 97.9; O2SAT 97
== END 2016-06-16 17:00 | disposition home or self-care (01) ==
LOC: C.ER 00:22 → C.9E 06:21 → INTOOBSV 06:21 → C.6T 06:47
PROVIDERS: ADMIT Hospitalist; ATTEND Hospitalist
DX: I13.0 Hypertensive heart and chronic kidney disease with heart failure and stage 1 through stage 4 chronic kidney disease, or unspecified chronic kidney disease (principal); I50.33 Acute on chronic diastolic (congestive) heart failure; E10.22 Type 1 diabetes mellitus with diabetic chronic kidney disease; I27.2 Other secondary pulmonary hypertension; N17.9 Acute kidney failure, unspecified; N18.3 Chronic kidney disease, stage 3 (moderate); I69.351 Hemiplegia and hemiparesis following cerebral infarction affecting right dominant side; D63.1 Anemia in chronic kidney disease; E78.00 Pure hypercholesterolemia, unspecified; K59.00 Constipation, unspecified; Z21 Asymptomatic human immunodeficiency virus [HIV] infection status; M19.90 Unspecified osteoarthritis, unspecified site; F20.9 Schizophrenia, unspecified; Z79.4 Long term (current) use of insulin; Z86.718 Personal history of other venous thrombosis and embolism; Z87.891 Personal history of nicotine dependence
CPT/HCPCS: 36415; 71010; 71020; 73562; 73630; 76770; 76857; 80053; 80061; 81001; 81005; 82043; 82248; 82570; 82607; 82728; 82746; 82948; 83036; 83540; 83550; 83735; 83880; 83935; 84100; 84133; 84155; 84300; 84443; 84550; 85025; 86360; 87536; 93005; 93306; 93923; 93970; 96372; 96374; 96375; 96376; 97116; 97162; 97166; 97530; 99285; G0328; G0378; G8978; G8979; G8987; G8988; J1650; J1885; J1940; J2270; J7040

== ENCOUNTER 2016-07-18 17:05 | Inpatient (IN) | payer MEDICARE, OTHER ==
[2016-07-18 17:06] VITALS: BMI 36.2
--- NOTE | 2016-07-18 17:17 | C.PDOC ---
History Of Present Illness 61 year old patient, with a past medical history of bronchitis, arthritis, CVA, diabetes, HIV, hypertension, peripheral edema, TIA, and schizophrenia, presents to the ED complaining of headache, chest pain, and bilateral leg pain since earlier today. Patient reports she has a productive cough for the past 3 days. When patient was pressed further details, patient is not forthcoming with more history. Patient has HIV, and notes her CD4 counts are always good. Patient denies fever, shortness of breath, or any other complaints at this time. Time Seen by Provider: 07/18/16 17:16 Chief Complaint (Nursing): Flu-like Symptoms History Per: Patient History/Exam Limitations: no limitations Onset/Duration Of Symptoms: Hrs (earlier today) Current Symptoms Are (Timing): Still Present Location Of Pain: Headache, Other Sick Contacts (Context): None Associated Symptoms: Cough Severity: Mild Pain Scale Rating Of: 3 Recent travel outside of the [place]: No Past Medical History Reviewed: Historical Data, Nursing Documentation, Vital Signs Vital Signs: Last Vital Signs Temp 97.8 F 07/19/16 00:00 Pulse 75 07/19/16 00:00 Resp 20 07/19/16 00:00 BP 110/70 07/19/16 10:13 Pulse Ox 95 07/19/16 00:00 - Medical History PMH: Arthritis, Bronchitis, CVA, Depression, Diabetes, HIV (T's>500 V's undectatable), HTN, Hypercholesterolemia, Peripheral Edema, Schizophrenia, TIA Surgical History: Cholecystectomy Family History: States: Unknown Family Hx - Social History Hx Tobacco Use: No Hx Alcohol Use: No Hx Substance Use: No - Immunization History Hx Tetanus Toxoid Vaccination: No Hx Influenza Vaccination: Yes Hx Pneumococcal Vaccination: Yes Review Of Systems Except As Marked, All Systems Reviewed And Found Negative. Constitutional: Negative for: Fever Cardiovascular: Positive for: Chest Pain Respiratory: Positive for: Cough. Negative for: Shortness of Breath Musculoskeletal: Positive for: Leg Pain (bilateral) Neurological: Positive for: Headache Physical Exam - Physical Exam Appears: Non-toxic, No Acute Distress Skin: Warm, Dry Head: Atraumatic, Normacephalic Neck: Normal ROM, Supple Chest: Symmetrical Cardiovascular: Rhythm Regular Respiratory: Normal Breath Sounds, No Rales, No Rhonchi, No Wheezing Gastrointestinal/Abdominal: Soft, No Tenderness Back: Normal Inspection, No CVA Tenderness Extremity: Normal ROM, Other (2+ pitting edema bilaterally to lower extremities) Neurological/Psych: Oriented x3, Normal Speech, Normal Cognition Gait: Steady ED Course And Treatment - Laboratory Results Result Diagrams: 07/18/16 18:00 07/18/16 18:00 O2 Sat by Pulse Oximetry: 99 (RA) Pulse Ox Interpretation: Normal Medical Decision Making Medical Decision Making: pt w productive cough, body aches, hx of HIV- will admit for IV abx and further eval Chest x-ray: no acute disease Head CT: Read by: Elizabeth Ochoa MD EXAM: CT Head Without Intravenous Contrast. CLINICAL HISTORY: 61 years old, female; Pain; Headache; Patient HX: 09-05-15 TECHNIQUE: Axial computed tomography images of the head/brain without intravenous contrast. This CT exam was performed using one or more of the following dose reduction techniques: automated exposure control, adjustment of the mA and/or kV according to patient size, and/or use of iterative reconstruction technique. EXAM DATE/TIME: 07/18/2016 5:31 PM COMPARISON: CT - HEAD W/O CONTRAST 09/05/2015 11:26:27 AM FINDINGS: Brain: There is prominence of sulci gyri and ventricles. There is no midline shift. There is an old left thalamic lacunar infarct. There are basal ganglia calcifications. There is decreased attenuation in periventricular white matter. There are no focal masses. There are no focal hemorrhages. Cabrera-white differentiation is visualized. Ventricles: See above Bones: Cranial vault is intact. Soft tissues: unremarkable Sinuses: There is no acute sinusitis. Ears and mastoids: Middle ears and mastoids are unremarkable Orbits: Orbital contents are unremarkable. IMPRESSION: No acute intracranial abnormality Disposition - Disposition Disposition: HOSPITALIZED Disposition Time: 20:22 Condition: STABLE - Clinical Impression Clinical Impression: Influenza-like illness - Scribe Statement The provider has reviewed the documentation as recorded by the Scribe Juliet Isabel Provider Attestation: All medical record entries made by the Scribe were at my direction and personally dictated by me. I have reviewed the chart and agree that the record accurately reflects my personal performance of the history, physical exam, medical decision making, and the department course for this patient. I have also personally directed, reviewed, and agree with the discharge instructions and disposition.
[2016-07-18] MEDS ORDERED: Sodium Chloride 0.9% 1,000 ML IV ONE (17:31)
[2016-07-18] MEDS ORDERED: Sodium Chloride 0.9% 1,000 ML ONE (17:55)
[2016-07-18] MEDS ORDERED: Morphine 4 MG/ML VIAL ONE (17:55)
[2016-07-18 18:03] LABS: BASO # 0.1 K/uL (0.0-0.2); EOS # 0.3 K/uL (0.0-0.7); EOS % 3.6 % (0.0-4.0); LYMPH # 3.1 K/uL (1.0-4.3); LYMPH % 44.2 % (20.0-40.0); MEAN CELL VOLUME 90.1 fL (81.0-99.0); MEAN CORPUSCULAR HEMOGLOBIN 30.3 pg (27.0-31.0); MEAN CORPUSCULAR HGB CONC 33.7 g/dL (33.0-37.0); MEAN PLATELET VOLUME 6.7 fL (7.2-11.7); MONO # 0.6 K/uL (0.0-0.8); MONO % 8.8 % (0.0-10.0); NRBC % 0.1 % (0.0-2.0); WHITE BLOOD COUNT 7.1 K/uL (4.8-10.8)
--- NOTE | 2016-07-18 18:06 | RAD ---
HISTORY: cp COMPARISON: 06/13/2016 FINDINGS: LUNGS: No active pulmonary disease. PLEURA: No significant pleural effusion identified, no pneumothorax apparent. CARDIOVASCULAR: Normal. OSSEOUS STRUCTURES: No significant abnormalities. VISUALIZED UPPER ABDOMEN: Normal. OTHER FINDINGS: None. IMPRESSION: No active disease.
[2016-07-18 18:08] LABS: VENOUS BLOOD GAS BASE EXCESS -1.3 mmol/L (0.0-2.0); VENOUS BLOOD GAS PCO2 43 mmHg (40-60); VENOUS BLOOD PH 7.36 (7.32-7.43)
[2016-07-18 18:12] LABS: CHLORIDE 99 mmol/L (98-107); SODIUM 137 mmol/L (132-148)
[2016-07-18 18:14] LABS: AST/SGOT 16 U/L (14-36); BILIRUBIN,TOTAL 2.9 mg/dL (0.2-1.3); CARBON DIOXIDE 22 mmol/L (22-30); GFR AFRICAN-AMERICAN 33
[2016-07-18 18:15] LABS: ALB/GLOB RATIO 1.1 (1.0-2.1); ALKALINE PHOSPHATASE 187 U/L (38-126); ALT/SGPT 14 U/L (9-52); BLOOD UREA NITROGEN 32 mg/dL (7-17); CALCIUM 8.5 mg/dl (8.6-10.4); GLUCOSE,RANDOM 184 mg/dL (65-105); TOTAL PROTEIN 7.7 g/dL (6.3-8.3)
--- NOTE | 2016-07-18 19:24 | CT ---
EXAM: CT Head Without Intravenous Contrast. CLINICAL HISTORY: 61 years old, female; Pain; Headache; Patient HX: 5--16 TECHNIQUE: Axial computed tomography images of the head/brain without intravenous contrast. This CT exam was performed using one or more of the following dose reduction techniques: automated exposure control, adjustment of the mA and/or kV according to patient size, and/or use of iterative reconstruction technique. EXAM DATE/TIME: 07/18/2016 5:31 PM COMPARISON: CT - HEAD W/O CONTRAST 09/05/2015 11:26:27 AM FINDINGS: Brain: There is prominence of sulci gyri and ventricles. There is no midline shift. There is an old left thalamic lacunar infarct. There are basal ganglia calcifications. There is decreased attenuation in periventricular white matter. There are no focal masses. There are no focal hemorrhages. Cabrera-white differentiation is visualized. Ventricles: See above Bones: Cranial vault is intact. Soft tissues: unremarkable Sinuses: There is no acute sinusitis. Ears and mastoids: Middle ears and mastoids are unremarkable. Orbits: Orbital contents are unremarkable. IMPRESSION: No acute intracranial abnormality
[2016-07-18 19:29] LABS: RBC URINE 2 /hpf (0-3); URINE BACTERIA MANY (<OCC); URINE BILIRUBIN NEGATIVE (NEGATIVE); URINE BLOOD NEGATIVE (NEGATIVE); URINE COLOR Yellow (YELLOW); URINE GLUCOSE (UA) NORMAL (Normal); URINE KETONE NEGATIVE (NEGATIVE); URINE LEUKOCYTE ESTERASE 1+ Leu/uL (Negative); URINE PROTEIN NEGATIVE (NEGATIVE); URINE UROBILINOGEN NORMAL mg/dL (0.2-1.0); WBC URINE 80 /hpf (0-5)
[2016-07-18] MEDS ORDERED: Tramadol 25 mg PO PRN (20:58)
[2016-07-18] MEDS ORDERED: Cefepime 1 GM in Sodium Chloride 0.9% 50 ML IVPB SCH (21:00)
[2016-07-18] MEDS: Azithromycin 500 MG in Sodium Chloride 0.9% 250 ML IVPB STA ×2 (21:04→22:37)
[2016-07-18] MEDS: Cefepime 1 GM in Sodium Chloride 0.9% 100 ML IVPB SCH (21:42)
[2016-07-18] MEDS ORDERED: Home Med 1 UNIT (Atorvastatin Calcium [Atorvastatin Calcium] 20 MG) PO SCH (22:00)
[2016-07-19] MEDS ORDERED: Tramadol 25 mg PO ONE (05:25)
[2016-07-19] MEDS ORDERED: Enoxaparin 40 mg Syringe SC SCH (10:00)
[2016-07-19] MEDS ORDERED: EMTRICITABINE PO SCH (10:00)
[2016-07-19] MEDS ORDERED: TENOFOV ALAFENAM PO SCH (10:00)
[2016-07-19] MEDS: Atazanavir 300 mg Cap PO SCH (10:03)
[2016-07-19] MEDS: Cefepime 1 GM in Sodium Chloride 0.9% 100 ML IVPB SCH ×2 (10:12→21:25)
[2016-07-19] MEDS: Insulin Detemir 100 units/ml Vial (Levemir) SC SCH (10:14)
--- NOTE | 2016-07-19 15:40 | CP.PCM.CON ---
History of Present Illness - History of Present Illness History of Present Illness: 61 year old patient, with a past medical history of bronchitis, arthritis, CVA, diabetes, HIV, hypertension, peripheral edema, TIA, and schizophrenia, presents to the ED complaining of headache, chest pain, and bilateral leg pain since earlier today. Patient reports she has a productive cough for the past 3 days. . Patient has HIV, and notes her CD4 counts are always good. takes descovey, norvir , reyataz c/o pain in legs IV rx in progress Patient denies fever, shortness of breath, or any other complaints at this time. - Medical History PMH: Arthritis, Bronchitis, CVA, Depression, Diabetes, HIV (T's>500 V's undectatable), HTN, Hypercholesterolemia, Peripheral Edema, Schizophrenia, TIA Surgical History: Cholecystectomy Family History: States: Unknown Family Hx Review of Systems - Constitutional Constitutional: As Per HPI - EENT Eyes: absent: As Per HPI, Blind Spots, Blurred Vision, Change in Vision, Decreased Night Vision, Diplopia, Discharge, Dry Eye, Exophthalmos, Floaters, Irritation, Itchy Eyes, Loss of Peripheral Vision, Pain, Photophobia, Requires Corrective Lenses, Sees Flashes, Spots in Vision, Tunnel Vision, Other Visual Disturbances, Loss of Vision, Other Ears: absent: As Per HPI, Decreased Hearing, Ear Discharge, Ear Pain, Tinnitus, Abnormal Hearing, Disequilibrium, Dizziness, Other Nose/Mouth/Throat: absent: As Per HPI, Epistaxis, Nasal Congestion, Nasal Discharge, Nasal Obstruction, Nasal Trauma, Nose Pain, Post Nasal Drip, Sinus Pain, Sinus Pressure, Bleeding Gums, Change in Voice, Dental Pain, Dry Mouth, Dysphagia, Halitosis, Hoarsness, Lip Swelling, Mouth Lesions, Mouth Pain, Odynophagia, Sore Throat, Throat Swelling, Tongue Swelling, Facial Pain, Neck Pain, Neck Mass, Other - Cardiovascular Cardiovascular: As Per HPI - Respiratory Respiratory: absent: As Per HPI, Cough, Dyspnea, Hemoptysis, Dyspnea on Exertion , Wheezing, Snoring, Stridor, Pain on Inspiration, Chest Congestion, Excessive Mucous Production, Change in Mucous Color, Pain with Coughing, Other - Gastrointestinal Gastrointestinal: absent: As Per HPI, Abdominal Pain, Belching, Bloating, Change in Bowel Habits, Change in Stool Character, Coffee Ground Emesis, Constipation, Cramping, Diarrhea, Dyspepsia, Dysphagia, Early Satiety, Excessive Flatus, Fecal Incontinence, Heartburn, Hematemesis, Hematochezia, Loose Stools, Melena, Nausea, Odynophagia, Temesmus, Vomiting, Other - Genitourinary Genitourinary: absent: As Per HPI, Change in Urinary Stream, Difficulty Urinating, Dysuria, Flank Pain, Hematuria, Pyuria, Nocturia, Urinary Incontinence, Urinary Frequency, Urinary Hesitance, Urinary Urgency, Voiding Freq/Small Amts, Freq UTI, Hx Renal/Bladder Calculi, Hx /Renal Surgery, Bladder Distension, Other - Reproductive: Female Reproductive:Female: absent: As Per HPI, Amenorrhea, Amenorrhea/ Control, Currently Menstual, Cycle <21 Days, Cycle >35 Days, Cycle Variable, Menses 1-7 Days, Menses >/= 8 Days, Menses Variable, Cycle > 4 Weeks Between, No Menses for 6 Months, Heavy Menses, Light Menses, Normal Menses, Spotting Between Cycles , S/P Hysterectomy, Menopausal, Post Menopausal, Premenarche, Abnormal Vaginal Bleeding, Dysmenorrhea, Dyspareunia, Genital Lesions, Genital Pruritis, Pelvic Pain, Prolapse Symptoms, Sexual Dysfunction, Vaginal Discharge, Vaginal Dryness , Vaginal Odor, Vaginal Pruritis, Other - Menstruation Menstruation: absent: As Per HPI, Amenorrhea, Amenorrhea/ Control, Currently Menstual, Cycle <21 Days, Cycle >35 Days, Cycle Variable, Menses 1-7 Days, Menses >/= 8 Days, Menses Variable, Cycle > 4 Weeks Between, No Menses for 6 Months, Heavy Menses, Light Menses, Normal Menses, Spotting Between Cycles , S/P Hysterectomy, Menopausal, Post Menopausal, Premenarche, Abnormal Vaginal Bleeding, Dysmenorrhea, Other - Musculoskeletal Musculoskeletal: As Per HPI - Integumentary Integumentary: As Per HPI, Skin Pain, Wounds - Neurological Neurological: absent: As Per HPI, Abnormal Gait, Abnormal Hearing, Abnormal Movements, Abnormal Speech, Behavioral Changes, Burning Sensations, Confusion, Convulsions, Disequilibrium, Dizziness, Numbness, Focal Weakness, Frequent Falls , Headaches, Lack of Coordination, Loss of Vision, Memory Loss, Paresthesias, Radicular Pain, Restless Legs, Sensory Deficit, Syncope, Tingling, Tremor, Vertigo, Weakness, Other Visual Disturbances, Other - Psychiatric Psychiatric: absent: As Per HPI, Abnormal Sleep Pattern, Anhedonia, Anxiety, Auditory Hallucinations, Behavioral Changes, Change in Appetite, Change in Libido, Confusion, Depression, Difficulty Concentrating, Hallucinations, Homicidal Ideation, Hopelessness, Irritability, Memory Loss, Mood Swings, Panic Attacks, Paranoia, Suicidal Ideation, Visual Hallucinations, Tactile Hallucinations, Other - Endocrine Endocrine: absent: As Per HPI, Change in Body Appearance, Change in Libido, Cold Intolorance, Deepening of Voice, Excessive Sweating, Fatigue, Flushing, Heat Intolorance, Increase in Ring/Shoe/Hat Size, Palpitations, Polydipsia, Polyphagia, Polyuria, Other - Hematologic/Lymphatic Hematologic: absent: As Per HPI, Easy Bleeding, Easy Bruising, Lymphadenopathy, Other Past Patient History - Infectious Disease Hx of Infectious Diseases: None - Past Medical History & Family History Past Medical History?: Yes - Past Social History Smoking Status: Never Smoked - CARDIAC Hx Hypercholesterolemia: Yes Hx Hypertension: Yes Hx Peripheral Edema: Yes - PULMONARY Hx Bronchitis: Yes - NEUROLOGICAL Hx Transient Ischemic Attacks (TIA): Yes - HEENT Hx HEENT Problems: No - RENAL Hx Chronic Kidney Disease: No - ENDOCRINE/METABOLIC Hx Endocrine Disorders: Yes Hx Diabetes Mellitus Type 1: Yes Hx Diabetes Mellitus Type 2: Yes - HEMATOLOGICAL/ONCOLOGICAL Hx Human Immunodeficiency Virus (HIV): Yes (T's>500 V's undectatable) - INTEGUMENTARY Hx Dermatological Problems: No - MUSCULOSKELETAL/RHEUMATOLOGICAL Hx Arthritis: Yes - GASTROINTESTINAL Hx Gastrointestinal Disorders: No - GENITOURINARY/GYNECOLOGICAL Hx Genitourinary Disorders: No - PSYCHIATRIC Hx Depression: Yes Hx Schizophrenia: Yes Hx Substance Use: No - SURGICAL HISTORY Hx Cholecystectomy: Yes - ANESTHESIA Hx Anesthesia: Yes Hx Anesthesia Reactions: No Hx Malignant Hyperthermia: No Meds Allergies/Adverse Reactions: Allergies Allergy/AdvReac Type Severity Reaction Status Date / Time ciprofloxacin Allergy Unknown Verified 06/13/16 00:46 - Medications Medications: Current Medications Acetaminophen (Tylenol 325mg Tab) 650 mg PO PRN PRN PRN Reason: Fever >100.4 F Amlodipine Besylate (Norvasc) 10 mg PO DAILY [facility] Last Admin: 07/19/16 10:02 Dose: 10 mg Aspirin (Ecotrin) 81 mg PO DAILY [facility] Last Admin: 07/19/16 10:03 Dose: 81 mg Atazanavir (Reyataz) 300 mg PO DAILY [facility] Last Admin: 07/19/16 10:03 Dose: 300 mg Citalopram Hydrobromide (Celexa) 20 mg PO DAILY [facility] Last Admin: 07/19/16 10:04 Dose: 20 mg Clopidogrel Bisulfate (Plavix) 75 mg PO DAILY [facility] Last Admin: 07/19/16 10:02 Dose: 75 mg Emtricitabine/Tenofovir (Truvada 200 Mg-300 Mg) 1 tab PO DAILY [facility] Enoxaparin Sodium (Lovenox) 30 mg SC DAILY [facility] Furosemide (Lasix) 20 mg PO BID [facility] Last Admin: 07/19/16 10:02 Dose: 20 mg Gabapentin (Neurontin) 300 mg PO DAILY [facility] Cefepime HCl 1 gm/ Sodium (Chloride) 100 mls @ 100 mls/hr IVPB Q12H [facility] Last Admin: 07/19/16 10:12 Dose: 100 mls/hr Insulin Detemir (Levemir) 10 unit SC DAILY [facility] Last Admin: 07/19/16 10:14 Dose: 10 unit Levetiracetam (Keppra) 500 mg PO BID [facility] Last Admin: 07/19/16 10:03 Dose: 500 mg Metoprolol Tartrate (Lopressor) 25 mg PO DAILY [facility] Last Admin: 07/19/16 10:13 Dose: 25 mg Pantoprazole Sodium (Protonix Inj) 40 mg IVP DAILY [facility] Last Admin: 07/19/16 10:01 Dose: 40 mg Ritonavir (Norvir) 100 mg PO DAILY [facility] Last Admin: 07/19/16 10:04 Dose: 100 mg Rosuvastatin Calcium (Crestor) 10 mg PO [facility] Tramadol HCl (Ultram) 25 mg PO TID PRN PRN Reason: Pain, severe (8-10) Last Admin: 07/19/16 01:01 Dose: 25 mg Physical Exam - Constitutional Appears: Non-toxic, Chronically Ill - Head Exam Head Exam: NORMOCEPHALIC - Eye Exam Eye Exam: PERRL. absent: Scleral icterus - ENT Exam ENT Exam: Mucous Membranes Dry, Normal External Ear Exam, Normal Oropharynx - Neck Exam Neck exam: Negative for: Lymphadenopathy, Thyromegaly - Respiratory Exam Respiratory Exam: Decreased Breath Sounds, Clear to Auscultation Bilateral - Cardiovascular Exam Cardiovascular Exam: REGULAR RHYTHM, +S1, +S2 - GI/Abdominal Exam GI & Abdominal Exam: Diminished Bowel Sounds, Soft. absent: Pulsatile Mass, Tenderness - Rectal Exam Rectal Exam: Deferred - Exam Exam: NORMAL INSPECTION - Extremities Exam Extremities exam: Positive for: pedal edema, tenderness, pedal pulses present. Negative for: calf tenderness - Back Exam Back exam: absent: CVA tenderness (L), CVA tenderness (R) - Neurological Exam Neurological exam: Alert, CN II-XII Intact, Oriented x3, Reflexes Normal - Psychiatric Exam Psychiatric exam: Normal Mood - Skin Skin Exam: Dry, Intact Results - Vital Signs Recent Vital Signs: Last Vital Signs Temp 97.8 F 07/19/16 00:00 Pulse 75 07/19/16 00:00 Resp 20 07/19/16 00:00 BP 110/70 07/19/16 10:13 Pulse Ox 99 07/19/16 13:33 - Labs Result Diagrams: 07/18/16 18:00 07/18/16 18:00 Labs: Laboratory Results - last 24 hr 07/19/16 07/19/16 07:28 11:03 POC Glucose (mg/dL) 202 H 238 H Assessment & Plan (1) Cough Status: Acute (2) Diabetes Status: Acute (3) Hx of intracranial hemorrhage Status: Acute (4) Influenza-like illness Status: Acute (5) HIV (human immunodeficiency virus infection) Status: Chronic
[2016-07-19] MEDS ORDERED: guaiFENesin DM 200 mg-20 mg/10 ml UD PO PRN (18:25)
[2016-07-20] MEDS ORDERED: Sodium Chloride 0.9% 1,000 ML IV SCH (09:00)
--- NOTE | 2016-07-20 09:02 | CP.PCM.PN ---
Subjective - Date & Time of Evaluation Date of Evaluation: 07/20/16 Time of Evaluation: 07:40 - Subjective Subjective: PGY2 Medicine Note - Dr. Bright's Service: Patient seen and evaluated at bedside this AM. Patient reports left sided abdominal pain x a few days, constipation (no bM in one week) and improving dysuria. Patient denies fever, chills, chest pain, SOB, nausea, vomiting, diarrhea. Objective - Vital Signs/Intake and Output Vital Signs (last 24 hours): Temp Pulse Resp BP Pulse Ox 98.2 F 69 20 104/60 97 07/20/16 07:52 07/20/16 07:52 07/20/16 07:52 07/20/16 07:52 07/20/16 07:52 Intake and Output: 07/20/16 07/20/16 06:59 18:59 Intake Total 900 Balance 900 - Medications Medications: Current Medications Acetaminophen (Tylenol 325mg Tab) 650 mg PO Q4H PRN PRN Reason: Fever >100.4 F Amlodipine Besylate (Norvasc) 10 mg PO DAILY [facility] Last Admin: 07/19/16 10:02 Dose: 10 mg Aspirin (Ecotrin) 81 mg PO DAILY [facility] Last Admin: 07/19/16 10:03 Dose: 81 mg Atazanavir (Reyataz) 300 mg PO DAILY [facility] Last Admin: 07/19/16 10:03 Dose: 300 mg Citalopram Hydrobromide (Celexa) 20 mg PO DAILY [facility] Last Admin: 07/19/16 10:04 Dose: 20 mg Clopidogrel Bisulfate (Plavix) 75 mg PO DAILY [facility] Last Admin: 07/19/16 10:02 Dose: 75 mg Emtricitabine/Tenofovir (Truvada 200 Mg-300 Mg) 1 tab PO DAILY [facility] Enoxaparin Sodium (Lovenox) 30 mg SC DAILY [facility] Furosemide (Lasix) 20 mg PO BID [facility] Last Admin: 07/19/16 17:18 Dose: 20 mg Gabapentin (Neurontin) 300 mg PO DAILY [facility] Guaifenesin/Dextromethorphan (Robitussin Dm) 10 ml PO Q4H PRN PRN Reason: Cough and congestion Last Admin: 07/20/16 06:57 Dose: 10 ml Cefepime HCl 1 gm/ Sodium (Chloride) 100 mls @ 100 mls/hr IVPB Q12H [facility] Last Admin: 07/19/16 21:25 Dose: 100 mls/hr Insulin Detemir (Levemir) 10 unit SC DAILY [facility] Last Admin: 07/19/16 10:14 Dose: 10 unit Ketorolac Tromethamine (Toradol) 30 mg IM Q6 PRN PRN Reason: Pain, severe (8-10) Last Admin: 07/20/16 06:51 Dose: 30 mg Levetiracetam (Keppra) 500 mg PO BID [facility] Last Admin: 07/19/16 17:18 Dose: 500 mg Metoprolol Tartrate (Lopressor) 25 mg PO DAILY [facility] Last Admin: 07/19/16 10:13 Dose: 25 mg Pantoprazole Sodium (Protonix Inj) 40 mg IVP DAILY [facility] Last Admin: 07/19/16 10:01 Dose: 40 mg Ritonavir (Norvir) 100 mg PO DAILY [facility] Last Admin: 07/19/16 10:04 Dose: 100 mg Rosuvastatin Calcium (Crestor) 10 mg PO [facility] Last Admin: 07/19/16 21:26 Dose: 10 mg Tramadol HCl (Ultram) 25 mg PO TID PRN PRN Reason: Pain, severe (8-10) Last Admin: 07/19/16 01:01 Dose: 25 mg Trazodone HCl (Desyrel) 300 mg PO [facility] Last Admin: 07/19/16 21:24 Dose: 300 mg - Constitutional Appears: Non-toxic, No Acute Distress - Head Exam Head Exam: NORMAL INSPECTION - Eye Exam Eye Exam: EOMI - ENT Exam ENT Exam: Mucous Membranes Moist - Respiratory Exam Respiratory Exam: Clear to Ausculation Bilateral, NORMAL BREATHING PATTERN. absent: Rales, Rhonchi, Wheezes - Cardiovascular Exam Cardiovascular Exam: REGULAR RHYTHM, +S1, +S2. absent: Gallop, Rubs, Murmur - GI/Abdominal Exam GI & Abdominal Exam: Soft, Tenderness (left side), Normal Bowel Sounds. absent : Firm, Guarding - Extremities Exam Extremities Exam: Tenderness (b/l). absent: Pedal Edema - Neurological Exam Neurological Exam: Alert, Oriented x3 - Psychiatric Exam Psychiatric exam: Normal Affect, Normal Mood - Skin Skin Exam: Normal Color, Warm Assessment and Plan - Assessment and Plan (Free Text) Assessment: 1. UTI UA shows 1+ leukocyte esterase, 80 WBC and many bacteria F/U urine culture ID consult - Dr. Pearce - help appreciated Cefepime IVPB Q12H 2. B/L Leg pain F/U venous and arterial dopplers Will discuss vascular consult with Dr. Bright 3. History of CVA ASA 81mg PO daily Plavix 75mg PO daily Crestor 10mg PO HS 4. History of HTN Norvasc 10mg PO daily Lasix 20mg PO BID Lopressor 25mg PO BID 5. History of HIV Atazanavir 300mg PO daily Truvada 200-300mg PO daily Norvir 100mg PO daily ID consult - Dr. Pearce - help appreciated 6. History of schizophrenia Continue home meds Celexa 20mg PO daily Keppra 500mg PO BID 7. History of CKD NS 50cc/hr 8. History of DM Levemir 10U SC daily Neurontin 300mg PO daily 9. Prophylaxis Lovenox 30mg SC daily Protonix 40mg IVP daily
--- NOTE | 2016-07-20 09:19 | HP ---
The patient is a 61-year-old female admitted to the hospital with chief complaint of weakness, fatigu e, tiredness, fever, headache. The patient found to have UTI. Advised admission to the hospital. T he patient has history of HIV, hypertension, CVA. The patient is a smoker. PHYSICAL EXAMINATION: GENERAL: The patient is awake, alert, oriented. VITAL SIGNS: Temperature 98, pulse 90. HEENT: Within normal limits. NECK: Supple. CHEST: Symmetrical. HEART: Regular. ABDOMEN: Soft. EXTREMITIES: No edema. The patient suffers from urinary tract infection . The patient placed on bedrest, supportive ca re, antibiotics. Kamala Chester MD cc: [id number] TT: 07/19/2016 15:39:15 en
[2016-07-20] MEDS: Enoxaparin 30 mg Syringe SC SCH (09:34)
[2016-07-20] MEDS: Emtricitabine-Tenofovir 200 mg-300 mg Tab PO SCH (09:38)
[2016-07-20] MEDS: Atazanavir 300 mg Cap PO SCH (09:39)
[2016-07-20] MEDS: Cefepime 1 GM in Sodium Chloride 0.9% 100 ML IVPB SCH ×2 (09:41→20:32)
[2016-07-20] MEDS: POLYETHYLENE GLYCOL 3350 17 GM/Dose PACKET PO SCH (09:44)
[2016-07-20] MEDS: Insulin Detemir 100 units/ml Vial (Levemir) SC SCH (10:02)
[2016-07-20] MEDS ORDERED: guaiFENesin DM 100 mg-10 mg/5 ml UD PO PRN (11:37)
[2016-07-20 12:08] LABS: BASO % 0.8 % (0.0-2.0); EOS # 0.3 K/uL (0.0-0.7); EOS % 4.3 % (0.0-4.0); HEMATOCRIT 32.4 % (34.0-47.0); LYMPH # 2.5 K/uL (1.0-4.3); LYMPH % 41.9 % (20.0-40.0); MEAN CELL VOLUME 90.3 fL (81.0-99.0); MEAN CORPUSCULAR HEMOGLOBIN 29.8 pg (27.0-31.0); MEAN PLATELET VOLUME 6.9 fL (7.2-11.7); MONO # 0.4 K/uL (0.0-0.8); MONO % 6.9 % (0.0-10.0); RED CELL DISTRIBUTION WIDTH 14.4 % (11.5-14.5)
--- NOTE | 2016-07-20 12:12 | CP.PCM.PN ---
Subjective - Date & Time of Evaluation Date of Evaluation: 07/20/16 Time of Evaluation: 08:00 - Subjective Subjective: afeb nad cultures neg thus far Objective - Vital Signs/Intake and Output Vital Signs (last 24 hours): Temp Pulse Resp BP Pulse Ox 98.2 F 69 20 104/60 97 07/20/16 07:52 07/20/16 08:52 07/20/16 07:52 07/20/16 09:36 07/20/16 07:52 Intake and Output: 07/20/16 07/20/16 06:59 18:59 Intake Total 900 Balance 900 - Medications Medications: Current Medications Acetaminophen (Tylenol 325mg Tab) 650 mg PO Q4H PRN PRN Reason: Fever >100.4 F Amlodipine Besylate (Norvasc) 10 mg PO DAILY [facility] Last Admin: 07/20/16 09:36 Dose: 10 mg Aspirin (Ecotrin) 81 mg PO DAILY [facility] Last Admin: 07/20/16 09:36 Dose: 81 mg Atazanavir (Reyataz) 300 mg PO DAILY [facility] Last Admin: 07/20/16 09:39 Dose: 300 mg Citalopram Hydrobromide (Celexa) 20 mg PO DAILY [facility] Last Admin: 07/20/16 09:40 Dose: 20 mg Clopidogrel Bisulfate (Plavix) 75 mg PO DAILY [facility] Last Admin: 07/20/16 09:36 Dose: 75 mg Emtricitabine/Tenofovir (Truvada 200 Mg-300 Mg) 1 tab PO DAILY [facility] Last Admin: 07/20/16 09:38 Dose: 1 tab Enoxaparin Sodium (Lovenox) 30 mg SC DAILY [facility] Last Admin: 07/20/16 09:34 Dose: 30 mg Furosemide (Lasix) 20 mg PO BID [facility] Last Admin: 07/20/16 09:36 Dose: 20 mg Gabapentin (Neurontin) 300 mg PO DAILY [facility] Last Admin: 07/20/16 09:36 Dose: 300 mg Guaifenesin/Dextromethorphan (Robitussin Dm) 10 ml PO Q4H PRN PRN Reason: Cough and congestion Cefepime HCl 1 gm/ Sodium (Chloride) 100 mls @ 100 mls/hr IVPB Q12H [facility] Last Admin: 07/20/16 09:41 Dose: 100 mls/hr Sodium Chloride (Sodium Chloride 0.9%) 1,000 mls @ 50 mls/hr IV .Q20H [facility] Last Admin: 07/20/16 09:33 Dose: 50 mls/hr Insulin Detemir (Levemir) 10 unit SC DAILY [facility] Last Admin: 07/20/16 10:02 Dose: 10 unit Ketorolac Tromethamine (Toradol) 30 mg IVP Q6 PRN PRN Reason: Pain, severe (8-10) Levetiracetam (Keppra) 500 mg PO BID [facility] Last Admin: 07/20/16 09:36 Dose: 500 mg Metoprolol Tartrate (Lopressor) 25 mg PO BID [facility] Last Admin: 07/20/16 09:36 Dose: 25 mg Pantoprazole Sodium (Protonix Inj) 40 mg IVP DAILY [facility] Last Admin: 07/20/16 09:39 Dose: 40 mg Polyethylene Glycol (Miralax) 17 gm PO DAILY [facility] Last Admin: 07/20/16 09:44 Dose: 17 gm Ritonavir (Norvir) 100 mg PO DAILY [facility] Last Admin: 07/20/16 09:39 Dose: 100 mg Rosuvastatin Calcium (Crestor) 10 mg PO [facility] Last Admin: 07/19/16 21:26 Dose: 10 mg Tramadol HCl (Ultram) 25 mg PO TID PRN PRN Reason: Pain, severe (8-10) Last Admin: 07/19/16 01:01 Dose: 25 mg Trazodone HCl (Desyrel) 300 mg PO [facility] Last Admin: 07/19/16 21:24 Dose: 300 mg - Constitutional Appears: Non-toxic - Head Exam Head Exam: NORMOCEPHALIC - Eye Exam Eye Exam: PERRL. absent: Scleral icterus - ENT Exam ENT Exam: Mucous Membranes Dry - Neck Exam Neck Exam: absent: Lymphadenopathy - Respiratory Exam Respiratory Exam: Decreased Breath Sounds, Clear to Ausculation Bilateral - Cardiovascular Exam Cardiovascular Exam: REGULAR RHYTHM - GI/Abdominal Exam GI & Abdominal Exam: Distended, Soft - Rectal Exam Rectal Exam: Deferred - Exam Exam: NORMAL INSPECTION - Extremities Exam Extremities Exam: absent: Pedal Edema - Back Exam Back Exam: absent: CVA tenderness (L), CVA tenderness (R) - Neurological Exam Neurological Exam: Alert, Awake, Oriented x3 Assessment and Plan (1) Cough Status: Acute (2) Diabetes Status: Acute (3) Hx of intracranial hemorrhage Status: Acute (4) Influenza-like illness Status: Acute (5) HIV (human immunodeficiency virus infection) Status: Chronic
[2016-07-20 12:28] LABS: POTASSIUM 4.5 mmol/L (3.6-5.2)
[2016-07-20 12:30] LABS: BILIRUBIN,TOTAL 2.9 mg/dL (0.2-1.3)
[2016-07-20 12:31] LABS: ALB/GLOB RATIO 1.1 (1.0-2.1); CALCIUM 8.2 mg/dl (8.6-10.4); TOTAL PROTEIN 6.8 g/dL (6.3-8.3)
--- NOTE | 2016-07-20 13:18 | CP.PCM.CON ---
History of Present Illness - History of Present Illness History of Present Illness: circulation intact Past Patient History - Infectious Disease Hx of Infectious Diseases: None - Past Medical History & Family History Past Medical History?: Yes - Past Social History Smoking Status: Never Smoked - CARDIAC Hx Hypercholesterolemia: Yes Hx Hypertension: Yes Hx Peripheral Edema: Yes - PULMONARY Hx Bronchitis: Yes - NEUROLOGICAL Hx Transient Ischemic Attacks (TIA): Yes - HEENT Hx HEENT Problems: No - RENAL Hx Chronic Kidney Disease: No - ENDOCRINE/METABOLIC Hx Endocrine Disorders: Yes Hx Diabetes Mellitus Type 1: Yes Hx Diabetes Mellitus Type 2: Yes - HEMATOLOGICAL/ONCOLOGICAL Hx Human Immunodeficiency Virus (HIV): Yes (T's>500 V's undectatable) - INTEGUMENTARY Hx Dermatological Problems: No - MUSCULOSKELETAL/RHEUMATOLOGICAL Hx Arthritis: Yes - GASTROINTESTINAL Hx Gastrointestinal Disorders: No - GENITOURINARY/GYNECOLOGICAL Hx Genitourinary Disorders: No - PSYCHIATRIC Hx Depression: Yes Hx Schizophrenia: Yes Hx Substance Use: No - SURGICAL HISTORY Hx Cholecystectomy: Yes - ANESTHESIA Hx Anesthesia: Yes Hx Anesthesia Reactions: No Hx Malignant Hyperthermia: No Meds Allergies/Adverse Reactions: Allergies Allergy/AdvReac Type Severity Reaction Status Date / Time ciprofloxacin Allergy Unknown Verified 06/13/16 00:46 - Medications Medications: Current Medications Acetaminophen (Tylenol 325mg Tab) 650 mg PO Q4H PRN PRN Reason: Fever >100.4 F Amlodipine Besylate (Norvasc) 10 mg PO DAILY [facility] Last Admin: 07/20/16 09:36 Dose: 10 mg Aspirin (Ecotrin) 81 mg PO DAILY [facility] Last Admin: 07/20/16 09:36 Dose: 81 mg Atazanavir (Reyataz) 300 mg PO DAILY [facility] Last Admin: 07/20/16 09:39 Dose: 300 mg Citalopram Hydrobromide (Celexa) 20 mg PO DAILY [facility] Last Admin: 07/20/16 09:40 Dose: 20 mg Clopidogrel Bisulfate (Plavix) 75 mg PO DAILY [facility] Last Admin: 07/20/16 09:36 Dose: 75 mg Emtricitabine/Tenofovir (Truvada 200 Mg-300 Mg) 1 tab PO DAILY [facility] Last Admin: 07/20/16 09:38 Dose: 1 tab Enoxaparin Sodium (Lovenox) 30 mg SC DAILY [facility] Last Admin: 07/20/16 09:34 Dose: 30 mg Furosemide (Lasix) 20 mg PO BID [facility] Last Admin: 07/20/16 09:36 Dose: 20 mg Gabapentin (Neurontin) 300 mg PO DAILY [facility] Last Admin: 07/20/16 09:36 Dose: 300 mg Guaifenesin/Dextromethorphan (Robitussin Dm) 10 ml PO Q4H PRN PRN Reason: Cough and congestion Cefepime HCl 1 gm/ Sodium (Chloride) 100 mls @ 100 mls/hr IVPB Q12H [facility] Last Admin: 07/20/16 09:41 Dose: 100 mls/hr Sodium Chloride (Sodium Chloride 0.9%) 1,000 mls @ 50 mls/hr IV .Q20H [facility] Last Admin: 07/20/16 09:33 Dose: 50 mls/hr Insulin Detemir (Levemir) 10 unit SC DAILY [facility] Last Admin: 07/20/16 10:02 Dose: 10 unit Ketorolac Tromethamine (Toradol) 30 mg IVP Q6 PRN PRN Reason: Pain, severe (8-10) Levetiracetam (Keppra) 500 mg PO BID [facility] Last Admin: 07/20/16 09:36 Dose: 500 mg Metoprolol Tartrate (Lopressor) 25 mg PO BID [facility] Last Admin: 07/20/16 09:36 Dose: 25 mg Pantoprazole Sodium (Protonix Inj) 40 mg IVP DAILY [facility] Last Admin: 07/20/16 09:39 Dose: 40 mg Polyethylene Glycol (Miralax) 17 gm PO DAILY [facility] Last Admin: 07/20/16 09:44 Dose: 17 gm Ritonavir (Norvir) 100 mg PO DAILY [facility] Last Admin: 07/20/16 09:39 Dose: 100 mg Rosuvastatin Calcium (Crestor) 10 mg PO HS [facility] Last Admin: 07/19/16 21:26 Dose: 10 mg Tramadol HCl (Ultram) 25 mg PO TID PRN PRN Reason: Pain, severe (8-10) Last Admin: 07/19/16 01:01 Dose: 25 mg Trazodone HCl (Desyrel) 300 mg PO HS [facility] Last Admin: 07/19/16 21:24 Dose: 300 mg Results - Vital Signs Recent Vital Signs: Last Vital Signs Temp 98.2 F 07/20/16 07:52 Pulse 69 07/20/16 08:52 Resp 20 07/20/16 07:52 BP 104/60 07/20/16 09:36 Pulse Ox 97 07/20/16 07:52 - Labs Result Diagrams: 07/20/16 11:58 07/20/16 11:58 Labs: Laboratory Results - last 24 hr 07/19/16 07/19/16 07/19/16 11:03 16:44 21:01 WBC RBC Hgb Hct MCV MCH MCHC RDW Plt Count MPV Neut % (Auto) Lymph % (Auto) [place] % (Auto) Eos % (Auto) Baso % (Auto) Neut # Lymph # Iron # Eos # Baso # Sodium Potassium Chloride Carbon Dioxide Anion Gap BUN Creatinine Est GFR ( Amer) Est GFR (Non-Af Amer) POC Glucose (mg/dL) 238 H 209 H 241 H Random Glucose Calcium Total Bilirubin AST ALT Alkaline Phosphatase Total Protein Albumin Globulin Albumin/Globulin Ratio 07/20/16 07/20/16 07:18 11:58 WBC 6.0 RBC 3.59 L Hgb 10.7 L Hct 32.4 L MCV 90.3 MCH 29.8 MCHC 33.0 RDW 14.4 Plt Count 304 MPV 6.9 L Neut % (Auto) 46.1 L Lymph % (Auto) 41.9 H Iron % (Auto) 6.9 Eos % (Auto) 4.3 H Baso % (Auto) 0.8 Neut # 2.8 Lymph # 2.5 Iron # 0.4 Eos # 0.3 Baso # 0.0 Sodium 137 Potassium 4.5 Chloride 101 Carbon Dioxide 24 Anion Gap 17 BUN 19 H Creatinine 1.3 H Est GFR ( Amer) 51 Est GFR (Non-Af Amer) 42 POC Glucose (mg/dL) 236 H Random Glucose 202 H Calcium 8.2 L Total Bilirubin 2.9 H AST 16 ALT 16 Alkaline Phosphatase 171 H Total Protein 6.8 Albumin 3.5 Globulin 3.3 Albumin/Globulin Ratio 1.1
--- NOTE | 2016-07-20 15:14 | CP.PCM.CON ---
History of Present Illness - History of Present Illness History of Present Illness: PGY-1 surgical consult note for Dr. Henley Surgery consultation for: bilateral leg pain with decreased pulses Pt is a 61 year old female, with PMHx of bronchitis, arthritis, CVA, TIA, type two diabetes mellitus, HIV, hypertension, peripheral edema, and schizophrenia. Patient was admitted on 07/19 for UTI symptoms, chest pain, and body pain. Pt reports bilateral leg pain reports "long history" of diabetic neuropathy ( numbness/tingling) in her feet, but now complains of an intermittent dull ache in both legs, that is worse on the right. This new pain started tow months ago. She states the pain is made worse by walking, but when she rests the pain improves. Pt admits loss of hair on both legs over the last couple of years. She admits the pain can wake her up at night, and is improved if she dangles her feet over the bed. She denies trauma to either extremity, history of blood clots, chest pain, shortness of breath, saddle anesthesia, or bowel/bladder incontinence. PMHx: bronchitis, arthritis, CVA/TIA, type two diabetes mellitus (diagnosed 1995 ), HIV (diagnosed 1998), hypertension, peripheral edema, and schizophrenia PSHx: Hysterectomy; Cholecystectomy Social Hx: Tobacco: smoked cigarettes for 33 years x 2 ppd; admits social drinking approximately once per month; denies illicit drug use; Lives in [place]; On disability Allergies: Ciprofloxacin Review of Systems - Constitutional Constitutional: Headache. absent: Chills, Fever, Weight Loss - EENT Eyes: absent: Blurred Vision Ears: absent: Decreased Hearing - Cardiovascular Cardiovascular: absent: Chest Pain, Chest Pain at Rest, Dyspnea, Dyspnea on Exertion - Respiratory Respiratory: absent: Dyspnea, Dyspnea on Exertion - Gastrointestinal Gastrointestinal: absent: Abdominal Pain, Nausea, Vomiting - Genitourinary Genitourinary: absent: Dysuria - Integumentary Integumentary: absent: Lesions - Neurological Neurological: Numbness, Tingling, Weakness - Psychiatric Psychiatric: absent: Anxiety, Depression - Endocrine Endocrine: absent: Polydipsia, Polyphagia, Polyuria Past Patient History - Infectious Disease Hx of Infectious Diseases: None - Past Medical History & Family History Past Medical History?: Yes - Past Social History Smoking Status: Never Smoked - CARDIAC Hx Hypercholesterolemia: Yes Hx Hypertension: Yes Hx Peripheral Edema: Yes - PULMONARY Hx Bronchitis: Yes - NEUROLOGICAL Hx Transient Ischemic Attacks (TIA): Yes - HEENT Hx HEENT Problems: No - RENAL Hx Chronic Kidney Disease: No - ENDOCRINE/METABOLIC Hx Endocrine Disorders: Yes Hx Diabetes Mellitus Type 1: Yes Hx Diabetes Mellitus Type 2: Yes - HEMATOLOGICAL/ONCOLOGICAL Hx Human Immunodeficiency Virus (HIV): Yes (T's>500 V's undectatable) - INTEGUMENTARY Hx Dermatological Problems: No - MUSCULOSKELETAL/RHEUMATOLOGICAL Hx Arthritis: Yes - GASTROINTESTINAL Hx Gastrointestinal Disorders: No - GENITOURINARY/GYNECOLOGICAL Hx Genitourinary Disorders: No - PSYCHIATRIC Hx Depression: Yes Hx Schizophrenia: Yes Hx Substance Use: No - SURGICAL HISTORY Hx Cholecystectomy: Yes - ANESTHESIA Hx Anesthesia: Yes Hx Anesthesia Reactions: No Hx Malignant Hyperthermia: No Meds Allergies/Adverse Reactions: Allergies Allergy/AdvReac Type Severity Reaction Status Date / Time ciprofloxacin Allergy Unknown Verified 06/13/16 00:46 - Medications Medications: Current Medications Acetaminophen (Tylenol 325mg Tab) 650 mg PO Q4H PRN PRN Reason: Fever >100.4 F Amlodipine Besylate (Norvasc) 10 mg PO DAILY [facility] Last Admin: 07/20/16 09:36 Dose: 10 mg Aspirin (Ecotrin) 81 mg PO DAILY [facility] Last Admin: 07/20/16 09:36 Dose: 81 mg Atazanavir (Reyataz) 300 mg PO DAILY [facility] Last Admin: 07/20/16 09:39 Dose: 300 mg Citalopram Hydrobromide (Celexa) 20 mg PO DAILY [facility] Last Admin: 07/20/16 09:40 Dose: 20 mg Clopidogrel Bisulfate (Plavix) 75 mg PO DAILY [facility] Last Admin: 07/20/16 09:36 Dose: 75 mg Emtricitabine/Tenofovir (Truvada 200 Mg-300 Mg) 1 tab PO DAILY [facility] Last Admin: 07/20/16 09:38 Dose: 1 tab Enoxaparin Sodium (Lovenox) 30 mg SC DAILY [facility] Last Admin: 07/20/16 09:34 Dose: 30 mg Furosemide (Lasix) 20 mg PO BID [facility] Last Admin: 07/20/16 09:36 Dose: 20 mg Gabapentin (Neurontin) 300 mg PO DAILY [facility] Last Admin: 07/20/16 09:36 Dose: 300 mg Guaifenesin/Dextromethorphan (Robitussin Dm) 10 ml PO Q4H PRN PRN Reason: Cough and congestion Cefepime HCl 1 gm/ Sodium (Chloride) 100 mls @ 100 mls/hr IVPB Q12H [facility] Last Admin: 07/20/16 09:41 Dose: 100 mls/hr Sodium Chloride (Sodium Chloride 0.9%) 1,000 mls @ 50 mls/hr IV .Q20H [facility] Last Admin: 07/20/16 09:33 Dose: 50 mls/hr Insulin Detemir (Levemir) 10 unit SC DAILY [facility] Last Admin: 07/20/16 10:02 Dose: 10 unit Ketorolac Tromethamine (Toradol) 30 mg IVP Q6 PRN PRN Reason: Pain, severe (8-10) Levetiracetam (Keppra) 500 mg PO BID [facility] Last Admin: 07/20/16 09:36 Dose: 500 mg Metoprolol Tartrate (Lopressor) 25 mg PO BID [facility] Last Admin: 07/20/16 09:36 Dose: 25 mg Pantoprazole Sodium (Protonix Inj) 40 mg IVP DAILY [facility] Last Admin: 07/20/16 09:39 Dose: 40 mg Polyethylene Glycol (Miralax) 17 gm PO DAILY [facility] Last Admin: 07/20/16 09:44 Dose: 17 gm Ritonavir (Norvir) 100 mg PO DAILY [facility] Last Admin: 07/20/16 09:39 Dose: 100 mg Rosuvastatin Calcium (Crestor) 10 mg PO [facility] Last Admin: 07/19/16 21:26 Dose: 10 mg Tramadol HCl (Ultram) 25 mg PO TID PRN PRN Reason: Pain, severe (8-10) Last Admin: 07/19/16 01:01 Dose: 25 mg Trazodone HCl (Desyrel) 300 mg PO [facility] Last Admin: 07/19/16 21:24 Dose: 300 mg Physical Exam - Head Exam Head Exam: ATRAUMATIC, NORMAL INSPECTION, NORMOCEPHALIC - Eye Exam Eye Exam: EOMI - ENT Exam ENT Exam: Mucous Membranes Moist - Respiratory Exam Respiratory Exam: Clear to Auscultation Bilateral, NORMAL BREATHING PATTERN - Extremities Exam Extremities exam: Positive for: normal inspection, pedal edema (1+ pedal edema bilaterally) - Neurological Exam Neurological exam: Alert, Oriented x3 - Skin Skin Exam: Normal Color, Warm Results - Vital Signs Recent Vital Signs: Last Vital Signs Temp 98.2 F 07/20/16 07:52 Pulse 69 07/20/16 08:52 Resp 20 07/20/16 07:52 BP 104/60 07/20/16 09:36 Pulse Ox 97 07/20/16 07:52 - Labs Result Diagrams: 07/20/16 11:58 07/20/16 11:58 Labs: Laboratory Results - last 24 hr 07/19/16 07/19/16 07/20/16 16:44 21:01 07:18 WBC RBC Hgb Hct MCV MCH MCHC RDW Plt Count MPV Neut % (Auto) Lymph % (Auto) [place] % (Auto) Eos % (Auto) Baso % (Auto) Neut # Lymph # [place] # Eos # Baso # Sodium Potassium Chloride Carbon Dioxide Anion Gap BUN Creatinine Est GFR ( Amer) Est GFR (Non-Af Amer) POC Glucose (mg/dL) 209 H 241 H 236 H Random Glucose Calcium Total Bilirubin AST ALT Alkaline Phosphatase Total Protein Albumin Globulin Albumin/Globulin Ratio 07/20/16 11:58 WBC 6.0 RBC 3.59 L Hgb 10.7 L Hct 32.4 L MCV 90.3 MCH 29.8 MCHC 33.0 RDW 14.4 Plt Count 304 MPV 6.9 L Neut % (Auto) 46.1 L Lymph % (Auto) 41.9 H [place] % (Auto) 6.9 Eos % (Auto) 4.3 H Baso % (Auto) 0.8 Neut # 2.8 Lymph # 2.5 [place] # 0.4 Eos # 0.3 Baso # 0.0 Sodium 137 Potassium 4.5 Chloride 101 Carbon Dioxide 24 Anion Gap 17 BUN 19 H Creatinine 1.3 H Est GFR ( Amer) 51 Est GFR (Non-Af Amer) 42 POC Glucose (mg/dL) Random Glucose 202 H Calcium 8.2 L Total Bilirubin 2.9 H AST 16 ALT 16 Alkaline Phosphatase 171 H Total Protein 6.8 Albumin 3.5 Globulin 3.3 Albumin/Globulin Ratio 1.1 Assessment & Plan - Assessment and Plan (Free Text) Assessment: 61 yo female with PMHx of DM, HTN, long smoking history, presenting with bilateral leg pain Plan: Circulation intact; Good pulses bilaterally f//u US Arterial doppler No surgical intervention at this time Surgical team d/w Dr. Kale Hernandez, PGY-1
--- NOTE | 2016-07-20 16:50 | VASCLAB ---
PROCEDURE: Lower Extremity Venous Duplex Exam. HISTORY: leg pain and swelling PRIORS: None. TECHNIQUE: Bilateral common femoral, femoral, popliteal and posterior tibial, peroneal and great saphenous veins were evaluated. Flow was assessed with color Doppler, compressibility, assessment of phasic flow and augmentation response. Report prepared by Varinder Almaraz, ZI, RVT FINDINGS: RIGHT: 1. Common Femoral Vein: 1.1. Compressibility - Fully compressible: Thrombus - None : Flow - Phasic: Augmentation -Normal: Reflux - None. 2. Femoral Vein: 2.1. Compressibility - Fully compressible: Thrombus - None : Flow - Phasic: Augmentation -Normal: Reflux - None. 3. Popliteal Vein: 3.1. Compressibility - Fully compressible: Thrombus - None : Flow - Phasic: Augmentation -Normal: Reflux - None. 4. Posterior Tibial Vein: 4.1. Compressibility - Fully compressible: Thrombus - None: Flow - Phasic: Augmentation -Normal: Reflux - None. 5. Peroneal Vein: 5.1. Compressibility - Fully compressible: Thrombus - None: Flow - Phasic: Augmentation -Normal: Reflux - None. 6. Great Saphenous Vein: 6.1. Compressibility - Fully compressible: Thrombus - None: Flow - Phasic: Augmentation - Normal: Reflux - None. LEFT: 1. Common Femoral Vein: 1.1. Compressibility - Fully compressible: Thrombus - None: Flow - Phasic: Augmentation -Normal: Reflux - None. 2. Femoral Vein: 2.1. Compressibility - Fully compressible: Thrombus - None: Flow - Phasic: Augmentation -Normal: Reflux - None. 3. Popliteal Vein: 3.1. Compressibility - Fully compressible: Thrombus - None : Flow - Phasic: Augmentation -Normal: Reflux - None. 4. Posterior Tibial Vein: 4.1. Compressibility - Fully compressible: Thrombus - None: Flow - Phasic: Augmentation -Normal: Reflux - None. 5. Peroneal Vein: 5.1. Compressibility - Fully compressible: Thrombus - None: Flow - Phasic: Augmentation -Normal: Reflux - None. 6. Great Saphenous Vein: 6.1. Compressibility - Fully compressible: Thrombus - None: Flow - Phasic: Augmentation - Normal: Reflux - None. OTHER FINDINGS: Right: None significant. Left: Non vascularized mass noted behind the left knee. Followup to resolution recommended. IMPRESSION: Right: No evidence of deep or superficial vein thrombosis of the right lower extremity. Normal valve function noted of the right side. Left: No evidence of deep or superficial vein thrombosis of the left lower extremity. Normal valve function noted of the left side.
[2016-07-21 07:19] LABS: POTASSIUM 4.3 mmol/L (3.6-5.2)
[2016-07-21 07:21] LABS: BILIRUBIN,TOTAL 2.7 mg/dL (0.2-1.3)
[2016-07-21 07:22] LABS: ALB/GLOB RATIO 1.1 (1.0-2.1); CALCIUM 8.4 mg/dl (8.6-10.4); TOTAL PROTEIN 6.9 g/dL (6.3-8.3)
[2016-07-21 07:29] VITALS: PULSE 74; RESP 20; TEMP 98; O2SAT 96
[2016-07-21 07:43] LABS: BASO # 0.1 K/uL (0.0-0.2); BASO % 0.8 % (0.0-2.0); EOS # 0.2 K/uL (0.0-0.7); EOS % 3.3 % (0.0-4.0); HEMATOCRIT 33.2 % (34.0-47.0); LYMPH # 2.6 K/uL (1.0-4.3); LYMPH % 37.8 % (20.0-40.0); MEAN CELL VOLUME 90.1 fL (81.0-99.0); MEAN CORPUSCULAR HEMOGLOBIN 30.2 pg (27.0-31.0); MEAN CORPUSCULAR HGB CONC 33.6 g/dL (33.0-37.0); MEAN PLATELET VOLUME 7.2 fL (7.2-11.7); MONO # 0.4 K/uL (0.0-0.8); MONO % 6.3 % (0.0-10.0); RED CELL DISTRIBUTION WIDTH 14.4 % (11.5-14.5); WHITE BLOOD COUNT 6.8 K/uL (4.8-10.8)
--- NOTE | 2016-07-21 08:39 | CP.PCM.PN ---
Subjective - Date & Time of Evaluation Date of Evaluation: 07/21/16 Time of Evaluation: 06:55 - Subjective Subjective: Vascular Surgery Pt S&E, NAEO. C/O pain in LE. no other complaints. Objective - Vital Signs/Intake and Output Vital Signs (last 24 hours): Temp Pulse Resp BP Pulse Ox 98 F 74 20 115/63 96 07/21/16 07:26 07/21/16 08:26 07/21/16 07:26 07/21/16 07:26 07/21/16 07:26 Intake and Output: 07/21/16 07/21/16 06:59 18:59 Intake Total 1600 Balance 1600 - Medications Medications: Current Medications Acetaminophen (Tylenol 325mg Tab) 650 mg PO Q4H PRN PRN Reason: Fever >100.4 F Amlodipine Besylate (Norvasc) 10 mg PO DAILY [facility] Last Admin: 07/20/16 09:36 Dose: 10 mg Aspirin (Ecotrin) 81 mg PO DAILY [facility] Last Admin: 07/20/16 09:36 Dose: 81 mg Atazanavir (Reyataz) 300 mg PO DAILY [facility] Last Admin: 07/20/16 09:39 Dose: 300 mg Citalopram Hydrobromide (Celexa) 20 mg PO DAILY [facility] Last Admin: 07/20/16 09:40 Dose: 20 mg Clopidogrel Bisulfate (Plavix) 75 mg PO DAILY [facility] Last Admin: 07/20/16 09:36 Dose: 75 mg Emtricitabine/Tenofovir (Truvada 200 Mg-300 Mg) 1 tab PO DAILY [facility] Last Admin: 07/20/16 09:38 Dose: 1 tab Enoxaparin Sodium (Lovenox) 30 mg SC DAILY [facility] Last Admin: 07/20/16 09:34 Dose: 30 mg Furosemide (Lasix) 20 mg PO BID [facility] Last Admin: 07/20/16 17:33 Dose: 20 mg Gabapentin (Neurontin) 300 mg PO DAILY [facility] Last Admin: 07/20/16 09:36 Dose: 300 mg Guaifenesin/Dextromethorphan (Robitussin Dm) 10 ml PO Q4H PRN PRN Reason: Cough and congestion Cefepime HCl 1 gm/ Sodium (Chloride) 100 mls @ 100 mls/hr IVPB Q12H [facility] Last Admin: 07/20/16 20:32 Dose: 100 mls/hr Sodium Chloride (Sodium Chloride 0.9%) 1,000 mls @ 50 mls/hr IV .Q20H [facility] Last Admin: 07/20/16 09:33 Dose: 50 mls/hr Insulin Detemir (Levemir) 10 unit SC DAILY [facility] Last Admin: 07/20/16 10:02 Dose: 10 unit Ketorolac Tromethamine (Toradol) 30 mg IVP Q6 PRN PRN Reason: Pain, severe (8-10) Last Admin: 07/20/16 16:14 Dose: 30 mg Levetiracetam (Keppra) 500 mg PO BID [facility] Last Admin: 07/20/16 17:32 Dose: 500 mg Metoprolol Tartrate (Lopressor) 25 mg PO BID [facility] Last Admin: 07/20/16 17:32 Dose: 25 mg Pantoprazole Sodium (Protonix Inj) 40 mg IVP DAILY [facility] Last Admin: 07/20/16 09:39 Dose: 40 mg Polyethylene Glycol (Miralax) 17 gm PO DAILY [facility] Last Admin: 07/20/16 09:44 Dose: 17 gm Ritonavir (Norvir) 100 mg PO DAILY [facility] Last Admin: 07/20/16 09:39 Dose: 100 mg Rosuvastatin Calcium (Crestor) 10 mg PO [facility] Last Admin: 07/20/16 21:17 Dose: 10 mg Tramadol HCl (Ultram) 25 mg PO TID PRN PRN Reason: Pain, severe (8-10) Last Admin: 07/19/16 01:01 Dose: 25 mg Trazodone HCl (Desyrel) 300 mg PO [facility] Last Admin: 07/20/16 21:24 Dose: 300 mg - Labs Labs: 07/21/16 06:56 07/21/16 06:56 - Constitutional Appears: Non-toxic, No Acute Distress - Head Exam Head Exam: ATRAUMATIC, NORMOCEPHALIC - Respiratory Exam Respiratory Exam: NORMAL BREATHING PATTERN. absent: Respiratory Distress - GI/Abdominal Exam GI & Abdominal Exam: Soft. absent: Distended, Tenderness - Extremities Exam Extremities Exam: Pedal Edema (B/L) Additional comments: DP pulses palpable B/L - Neurological Exam Neurological Exam: Alert, Awake - Skin Skin Exam: Dry, Warm Assessment and Plan - Assessment and Plan (Free Text) Assessment: 61F with b/l LE pain Plan: Awaiting arterial doppler. Normal venous doppler. Will D/W Dr. Kale Reese PGY3
[2016-07-21] MEDS: Cefepime 1 GM in Sodium Chloride 0.9% 100 ML IVPB SCH (09:53)
--- NOTE | 2016-07-21 10:46 | CP.PCM.PN ---
Subjective - Date & Time of Evaluation Date of Evaluation: 07/21/16 Time of Evaluation: 07:25 - Subjective Subjective: PGY2 Medicine Note - Dr. Bright's Service: Patient seen and evaluated at bedside this AM. Patient reports b/l foot pain. Patient had BM last night. Patient denies fever, chills, chest pain, SOB, nausea, vomiting, diarrhea. Objective - Vital Signs/Intake and Output Vital Signs (last 24 hours): Temp Pulse Resp BP Pulse Ox 98 F 74 20 115/63 96 07/21/16 07:26 07/21/16 08:26 07/21/16 07:26 07/21/16 07:26 07/21/16 07:26 Intake and Output: 07/21/16 07/21/16 06:59 18:59 Intake Total 1600 Balance 1600 - Medications Medications: Current Medications Acetaminophen (Tylenol 325mg Tab) 650 mg PO Q4H PRN PRN Reason: Fever >100.4 F Amlodipine Besylate (Norvasc) 10 mg PO DAILY [facility] Last Admin: 07/20/16 09:36 Dose: 10 mg Aspirin (Ecotrin) 81 mg PO DAILY [facility] Last Admin: 07/20/16 09:36 Dose: 81 mg Atazanavir (Reyataz) 300 mg PO DAILY [facility] Last Admin: 07/20/16 09:39 Dose: 300 mg Citalopram Hydrobromide (Celexa) 20 mg PO DAILY [facility] Last Admin: 07/20/16 09:40 Dose: 20 mg Clopidogrel Bisulfate (Plavix) 75 mg PO DAILY [facility] Last Admin: 07/20/16 09:36 Dose: 75 mg Emtricitabine/Tenofovir (Truvada 200 Mg-300 Mg) 1 tab PO DAILY [facility] Last Admin: 07/20/16 09:38 Dose: 1 tab Enoxaparin Sodium (Lovenox) 30 mg SC DAILY [facility] Last Admin: 07/20/16 09:34 Dose: 30 mg Furosemide (Lasix) 20 mg PO BID [facility] Last Admin: 07/20/16 17:33 Dose: 20 mg Gabapentin (Neurontin) 300 mg PO TID [facility] Guaifenesin/Dextromethorphan (Robitussin Dm) 10 ml PO Q4H PRN PRN Reason: Cough and congestion Cefepime HCl 1 gm/ Sodium (Chloride) 100 mls @ 100 mls/hr IVPB Q12H [facility] Last Admin: 07/21/16 09:53 Dose: 100 mls/hr Sodium Chloride (Sodium Chloride 0.9%) 1,000 mls @ 50 mls/hr IV .Q20H [facility] Last Admin: 07/20/16 09:33 Dose: 50 mls/hr Insulin Detemir (Levemir) 10 unit SC DAILY [facility] Last Admin: 07/20/16 10:02 Dose: 10 unit Ketorolac Tromethamine (Toradol) 30 mg IVP Q6 PRN PRN Reason: Pain, severe (8-10) Last Admin: 07/21/16 08:48 Dose: 30 mg Levetiracetam (Keppra) 500 mg PO BID [facility] Last Admin: 07/20/16 17:32 Dose: 500 mg Metoprolol Tartrate (Lopressor) 25 mg PO BID [facility] Last Admin: 07/20/16 17:32 Dose: 25 mg Pantoprazole Sodium (Protonix Inj) 40 mg IVP DAILY [facility] Last Admin: 07/20/16 09:39 Dose: 40 mg Polyethylene Glycol (Miralax) 17 gm PO DAILY [facility] Last Admin: 07/20/16 09:44 Dose: 17 gm Ritonavir (Norvir) 100 mg PO DAILY [facility] Last Admin: 07/20/16 09:39 Dose: 100 mg Rosuvastatin Calcium (Crestor) 10 mg PO [facility] Last Admin: 07/20/16 21:17 Dose: 10 mg Tramadol HCl (Ultram) 25 mg PO TID PRN PRN Reason: Pain, severe (8-10) Last Admin: 07/19/16 01:01 Dose: 25 mg Trazodone HCl (Desyrel) 300 mg PO [facility] Last Admin: 07/20/16 21:24 Dose: 300 mg - Labs Labs: 07/21/16 06:56 07/21/16 06:56 - Constitutional Appears: Non-toxic, No Acute Distress - Head Exam Head Exam: NORMAL INSPECTION - Eye Exam Eye Exam: EOMI - ENT Exam ENT Exam: Mucous Membranes Moist - Respiratory Exam Respiratory Exam: Clear to Ausculation Bilateral, NORMAL BREATHING PATTERN. absent: Rales, Rhonchi, Wheezes - Cardiovascular Exam Cardiovascular Exam: REGULAR RHYTHM, +S1, +S2. absent: Gallop, Rubs - GI/Abdominal Exam GI & Abdominal Exam: Soft, Normal Bowel Sounds. absent: Distended, Firm, Tenderness - Extremities Exam Extremities Exam: Normal Capillary Refill, Normal Inspection, Tenderness. absent: Calf Tenderness, Pedal Edema - Neurological Exam Neurological Exam: Alert, Awake - Psychiatric Exam Psychiatric exam: Normal Affect, Normal Mood - Skin Skin Exam: Normal Color, Warm Assessment and Plan - Assessment and Plan (Free Text) Assessment: 1. UTI UA shows 1+ leukocyte esterase, 80 WBC and many bacteria urine culture - multiple species ID consult - Dr. Pearce - help appreciated Cefepime IVPB Q12H C/D with macrobid 100mg PO daily #5 2. B/L Leg pain Venous dopplers were negative besides left nonvascularized mass behind left knee. Will need to follow up to resolution outpatient 3. History of CVA ASA 81mg PO daily Plavix 75mg PO daily Crestor 10mg PO HS 4. History of HTN Norvasc 10mg PO daily Lasix 20mg PO BID Lopressor 25mg PO BID 5. History of HIV Atazanavir 300mg PO daily Truvada 200-300mg PO daily Norvir 100mg PO daily ID consult - Dr. Pearce - help appreciated 6. History of schizophrenia Continue home meds Celexa 20mg PO daily Keppra 500mg PO BID 7. History of CKD NS 50cc/hr 8. History of DM Levemir 10U SC daily Neurontin 300mg PO daily 9. Prophylaxis Lovenox 30mg SC daily Protonix 40mg IVP daily
[2016-07-21] MEDS: Enoxaparin 30 mg Syringe SC SCH (10:54)
[2016-07-21] MEDS: Emtricitabine-Tenofovir 200 mg-300 mg Tab PO SCH (10:55)
[2016-07-21] MEDS: POLYETHYLENE GLYCOL 3350 17 GM/Dose PACKET PO SCH (10:55)
[2016-07-21 10:56] VITALS: BP 114/60
[2016-07-21] MEDS: Insulin Detemir 100 units/ml Vial (Levemir) SC SCH (10:56)
[2016-07-21] MEDS: Atazanavir 300 mg Cap PO SCH (10:56)
--- NOTE | 2016-07-22 07:45 | DS ---
The patient was admitted to the hospital with chief complaint of generalized pain, weakness, UTI. Th e patient was started on IV antibiotic, pain medication. ID consultation. Vascular consultation. T he patient showed improvement. Will be discharged today and be followed in my office. DIAGNOSIS: Urinary tract infection, human immunodeficiency virus, neuropathy. Kamala Chester MD cc: [id number] TT: 07/22/2016 03:16:35 tn
== END 2016-07-21 14:25 | disposition home or self-care (01) | DRG 977 ==
LOC: C.ER 17:05 → C.9E 20:22 → OBSVTOIN 20:47 → C.3T 22:21
PROVIDERS: ADMIT Internal Medicine Pulmonary Disease; ATTEND Internal Medicine Pulmonary Disease
DX: B20 Human immunodeficiency virus [HIV] disease (principal); E10.40 Type 1 diabetes mellitus with diabetic neuropathy, unspecified; N39.0 Urinary tract infection, site not specified; J11.1 Influenza due to unidentified influenza virus with other respiratory manifestations; J40 Bronchitis, not specified as acute or chronic; F20.9 Schizophrenia, unspecified; K59.00 Constipation, unspecified; Z79.02 Long term (current) use of antithrombotics/antiplatelets; Z79.4 Long term (current) use of insulin; F17.210 Nicotine dependence, cigarettes, uncomplicated; Z86.73 Personal history of transient ischemic attack (TIA), and cerebral infarction without residual deficits; M79.605 Pain in left leg; E78.00 Pure hypercholesterolemia, unspecified

== ENCOUNTER 2016-08-31 17:26 | Observation (INO) | payer MEDICARE, OTHER ==
[2016-08-31 17:27] VITALS: BMI 36.2
--- NOTE | 2016-08-31 18:14 | C.PDOC ---
History Of Present Illness <Evelyn Bentley - Last Filed: 08/31/16 19:08> <Thai Cromier - Last Filed: 08/31/16 19:22> Patient is a 61 year old female who was sent to the ER by Dr. Bright for a complaint of aching body pains for 3 days that developed into chest pain this morning and mild SOB. Denies fever, nausea, vomiting, and abdominal pain. (Evelyn Bentley) History Per: Patient History/Exam Limitations: no limitations Onset/Duration Of Symptoms: Hrs (Chest pain this morning), Days (3 Body aches) Current Symptoms Are (Timing): Still Present Context: Other (Unknown) Quality: Aching Associated Symptoms: denies: Nausea, Other (Fever, vomiting, abdominal pain) Modifying Factors: None Exacerbating Factors: None Alleviating Factors: None <Evelyn Bentley - Last Filed: 08/31/16 19:08> <Thai Cormier - Last Filed: 08/31/16 19:22> Time Seen by Provider: 08/31/16 18:14 Chief Complaint (Nursing): Chest Pain Past Medical History Reviewed: Historical Data, Nursing Documentation, Vital Signs - Medical History PMH: Arthritis, Bronchitis, CVA, Depression, Diabetes, HIV (T's>500 V's undectatable), HTN, Hypercholesterolemia, Peripheral Edema, Schizophrenia, TIA Surgical History: Cholecystectomy Family History: States: Unknown Family Hx - Social History Hx Tobacco Use: No Hx Alcohol Use: No Hx Substance Use: No - Immunization History Hx Tetanus Toxoid Vaccination: No Hx Influenza Vaccination: Yes Hx Pneumococcal Vaccination: Yes <Evelyn Bentley - Last Filed: 08/31/16 19:08> Review Of Systems Except As Marked, All Systems Reviewed And Found Negative. Constitutional: Negative for: Fever Cardiovascular: Positive for: Chest Pain Respiratory: Positive for: Shortness of Breath (Mild) Gastrointestinal: Negative for: Nausea, Vomiting, Abdominal Pain Musculoskeletal: Positive for: Other (Body aches) <Evelyn Bentley - Last Filed: 08/31/16 19:08> Physical Exam - Physical Exam Appears: Well, Non-toxic Skin: Normal Color, Warm, Dry Head: Atraumatic, Normacephalic Oral Mucosa: Moist Chest: Symmetrical, No Tenderness Cardiovascular: Rhythm Regular, No Murmur Respiratory: Normal Breath Sounds, No Rales, No Rhonchi, No Wheezing Gastrointestinal/Abdominal: Soft, No Tenderness Extremity: Pedal Edema (2+) Neurological/Psych: Oriented x3, Normal Speech, Normal Cognition <Evelyn Bentley - Last Filed: 08/31/16 19:08> ED Course And Treatment Interpretation Of ECst degree AV block. Diffuse ST changes. O2 Sat by Pulse Oximetry: 98 (Room air) Pulse Ox Interpretation: Normal Progress Note: Patient will get cardiac work up. Blood work, EKG, and CXR ordered. Aspirin PO and Morphine IVP administered. <Evelyn Bentley - Last Filed: 08/31/16 19:08> - Laboratory Results Result Diagrams: 08/31/16 19:09 ECG: Interpreted By Me, Viewed By Me ECG Rhythm: Sinus Rhythm (82), 1st Degree HB, Nonspecific Changes Pulse Ox Interpretation: Normal - Radiology CXR: Interpreted by Me, Viewed By Me CXR Interpretation: Yes: Other (unchanged from 07/18/16). No: Infiltrates, Fracture, Cardiomegaly <Thai Cormier - Last Filed: 08/31/16 19:22> Disposition - Disposition Disposition Time: 19:09 <Evelyn Bentley - Last Filed: 08/31/16 19:08> <Thai Cormier - Last Filed: 08/31/16 19:22> - Disposition Condition: FAIR - Clinical Impression Clinical Impression: Chest pain - Scribe Statement The provider has reviewed the documentation as recorded by the Scribe <Evelyn Bentley - Last Filed: 08/31/16 19:08> <Thai Cormier - Last Filed: 08/31/16 19:22> - Scribe Statement Varinder Dillon All medical record entries made by the Scribe were at my direction and personally dictated by me. I have reviewed the chart and agree that the record accurately reflects my personal performance of the history, physical exam, medical decision making, and the department course for this patient. I have also personally directed, reviewed, and agree with the discharge instructions and disposition. (Evelyn Bentley) Physician Patient Turnover Patient Signed Over To: Thai Cormier Handoff Comments: labs and dispo are pending <Evelyn Bentley - Last Filed: 08/31/16 19:08>
[2016-08-31] MEDS ORDERED: Morphine 4 MG/ML VIAL ONE ×2 (18:47→21:53)
[2016-08-31 19:16] LABS: BASO # 0.1 K/uL (0.0-0.2); BASO % 1.1 % (0.0-2.0); EOS # 0.3 K/uL (0.0-0.7); EOS % 3.7 % (0.0-4.0); HEMATOCRIT 33.2 % (34.0-47.0); LYMPH # 3.2 K/uL (1.0-4.3); LYMPH % 44.2 % (20.0-40.0); MEAN CELL VOLUME 87.4 fL (81.0-99.0); MEAN CORPUSCULAR HEMOGLOBIN 28.9 pg (27.0-31.0); MEAN CORPUSCULAR HGB CONC 33.1 g/dL (33.0-37.0); MEAN PLATELET VOLUME 7.2 fL (7.2-11.7); MONO # 0.5 K/uL (0.0-0.8); MONO % 7.4 % (0.0-10.0); NRBC % 0.1 % (0.0-2.0); WHITE BLOOD COUNT 7.2 K/uL (4.8-10.8)
[2016-08-31 19:18] LABS: POTASSIUM 4.3 mmol/L (3.6-5.2)
[2016-08-31 19:20] LABS: ALB/GLOB RATIO 1.1 (1.0-2.1); BILIRUBIN,TOTAL 2.3 mg/dL (0.2-1.3); TOTAL PROTEIN 7.5 g/dL (6.3-8.3)
[2016-08-31 19:21] LABS: CALCIUM 8.7 mg/dl (8.6-10.4)
[2016-08-31 19:26] LABS: INR 0.9
[2016-08-31] MEDS ORDERED: Home Med 1 UNIT (Atorvastatin Calcium [Atorvastatin Calcium] 20 MG) PO SCH (22:00)
--- NOTE | 2016-09-01 08:42 | RAD ---
PROCEDURE: CHEST RADIOGRAPH, 1 VIEW HISTORY: SOB COMPARISON: 07/18/2016 FINDINGS: LUNGS: Mild venous congestion. Patchy left basilar airspace opacity with question trace left pleural effusion. Right hilar prominence. PLEURA: No pneumothorax or pleural fluid seen. CARDIOVASCULAR: Mild cardiomegaly. OSSEOUS STRUCTURES: No significant abnormalities. VISUALIZED UPPER ABDOMEN: Normal. OTHER FINDINGS: None. IMPRESSION: Mild venous congestion. Patchy left basilar airspace opacity with question trace left pleural effusion. Right hilar prominence.
[2016-09-01] MEDS ORDERED: EMTRICITABINE PO SCH (10:00)
[2016-09-01] MEDS ORDERED: TENOFOV ALAFENAM PO SCH (10:00)
--- NOTE | 2016-09-01 10:23 | CARD ---
APPROVED REPORT EKG Measurement Heart [id number] <Conclusion> Sinus rhythm with 1st degree AV block Possible Left atrial enlargement Left axis deviation Prolonged QT Abnormal ECG
--- NOTE | 2016-09-01 10:33 | CP.PCM.PN ---
Subjective - Date & Time of Evaluation Date of Evaluation: 09/01/16 Time of Evaluation: 13:31 - Subjective Subjective: Medicine Progress Note Patient seen and examined. Patient complains of generalized pain but is unable to localize it. She is refusing her oral pain medication and requesting IV pain medication per RN. No acute events overnight. Denies fever, chills, nausea, vomiting, chest pain, shortness of breath, and abdominal pain. Objective - Vital Signs/Intake and Output Vital Signs (last 24 hours): Temp Pulse Resp BP Pulse Ox 98.1 F 60 20 113/59 L 100 08/31/16 21:39 08/31/16 21:39 08/31/16 21:39 08/31/16 21:39 08/31/16 21:39 Intake and Output: 09/01/16 09/01/16 06:59 18:59 Intake Total 250 Balance 250 - Medications Medications: Current Medications Amlodipine Besylate (Norvasc) 10 mg PO DAILY [facility] Aspirin (Ecotrin) 81 mg PO DAILY [facility] Atazanavir (Reyataz) 300 mg PO DAILY [facility] Citalopram Hydrobromide (Celexa) 20 mg PO DAILY [facility] Clopidogrel Bisulfate (Plavix) 75 mg PO DAILY [facility] Furosemide (Lasix) 20 mg PO BID [facility] Gabapentin (Neurontin) 1 mg PO TID [facility] Home Med (Emtricitabine/Tenofov Alafenam [Descovy 200-25 Mg Tablet]) 1 each PO DAILY [facility] Insulin Detemir (Levemir) 10 unit SC DAILY [facility] Levetiracetam (Keppra) 500 mg PO BID [facility] Metoprolol Tartrate (Lopressor) 25 mg PO DAILY [facility] Ritonavir (Norvir) 100 mg PO DAILY [facility] Rosuvastatin Calcium (Crestor) 10 mg PO HS [facility] Last Admin: 09/01/16 00:00 Dose: Not Given Tramadol HCl (Ultram) 25 mg PO TID PRN PRN Reason: Pain, severe (8-10) - Labs Labs: PT 9.4 SECONDS (9.7-12.2) L 08/31/16 19:09 INR 0.9 08/31/16 19:09 APTT 21 SECONDS (21-34) 08/31/16 19:09 - Constitutional Appears: Non-toxic, No Acute Distress - Head Exam Head Exam: ATRAUMATIC, NORMOCEPHALIC - Eye Exam Eye Exam: EOMI, Normal appearance - ENT Exam ENT Exam: Mucous Membranes Moist - Neck Exam Neck Exam: Normal Inspection - Respiratory Exam Respiratory Exam: Clear to Ausculation Bilateral, NORMAL BREATHING PATTERN. absent: Rhonchi, Wheezes, Respiratory Distress - Cardiovascular Exam Cardiovascular Exam: REGULAR RHYTHM, +S1, +S2 - GI/Abdominal Exam GI & Abdominal Exam: Soft, Normal Bowel Sounds - Extremities Exam Extremities Exam: Pedal Edema - Neurological Exam Neurological Exam: Alert, Awake, Oriented x3 - Psychiatric Exam Psychiatric exam: Normal Affect, Normal Mood - Skin Skin Exam: Dry, Intact, Normal Color, Warm Assessment and Plan - Assessment and Plan (Free Text) Assessment: 1. Chest pain Rule out ACS Romis negative x3 residential monitor NSR 08/31 Chest X-ray: Mild venous congestion. Patchy left basilar airspace opacity with question trace left pleural effusion. Dr Quintana consulted- will f/u recommendations 2. CHF ECHO- diastolic dysfunction, EF 65-70% Lasix 20mg PO BID 3. HIV Atazanavir 300mg PO daily Truvada 200-300mg PO daily Norvir 100mg PO daily 4. HTN Norvasc 10mg PO daily Lasix 20mg PO BID Lopressor 25mg PO BID 5. DM Levemir 10U SC daily Neurontin 300mg PO daily Accuchecks ISS 6. CKD Stage 3 CKD BUN/Cr 22/.5 Can not give fluids due to CHF Monitor 7. Hx CVA ASA 81mg PO daily Plavix 75mg PO daily Crestor 10mg PO HS 8. Prophylactic measures ASA Plavix Pepcid 20mg PO BID Management per Dr Bright
[2016-09-01] MEDS: Atazanavir 300 mg Cap PO SCH (11:06)
[2016-09-01] MEDS: Insulin Detemir 100 units/ml Vial (Levemir) SC SCH (11:08)
[2016-09-01] MEDS: (Novolin R) Insulin Human Regular 100 units/ml vial SC SCH ×3 (13:56→22:17)
[2016-09-01] MEDS: Tramadol 25 mg PO PRN ×2 (14:12→22:12)
--- NOTE | 2016-09-01 21:33 | CP.PCM.CON ---
History of Present Illness - History of Present Illness History of Present Illness: I was asked to see patient by Dr. Bright. Patient is a 61 year old female wth a PMH HTN, hypercholesterolemia, HIV who presents with diffuse body pain. The patient states symptoms began 5 days ago. The patietn's symptoms were progressive. She developed chest pain, which was sharp and nonradiating. There was no assocated dyspnea. Review of Systems - Constitutional Constitutional: absent: As Per HPI, Anorexia, Chills, Daytime Sleepiness, Excessive Sweating, Fatigue, Fever, Frequent Falls, Headache, Increased Appetite , Lethargy, Malaise, Night Sweats, Snoring, Sleep Apnea, Weight Gain, Weight Loss, Weakness, Other - EENT Eyes: absent: As Per HPI, Blind Spots, Blurred Vision, Change in Vision, Decreased Night Vision, Diplopia, Discharge, Dry Eye, Exophthalmos, Floaters, Irritation, Itchy Eyes, Loss of Peripheral Vision, Pain, Photophobia, Requires Corrective Lenses, Sees Flashes, Spots in Vision, Tunnel Vision, Other Visual Disturbances, Loss of Vision, Other Ears: absent: As Per HPI, Decreased Hearing, Ear Discharge, Ear Pain, Tinnitus, Abnormal Hearing, Disequilibrium, Dizziness, Other Nose/Mouth/Throat: absent: As Per HPI, Epistaxis, Nasal Congestion, Nasal Discharge, Nasal Obstruction, Nasal Trauma, Nose Pain, Post Nasal Drip, Sinus Pain, Sinus Pressure, Bleeding Gums, Change in Voice, Dental Pain, Dry Mouth, Dysphagia, Halitosis, Hoarsness, Lip Swelling, Mouth Lesions, Mouth Pain, Odynophagia, Sore Throat, Throat Swelling, Tongue Swelling, Facial Pain, Neck Pain, Neck Mass, Other - Cardiovascular Cardiovascular: absent: As Per HPI, Acrocyanosis, Chest Pain, Chest Pain at Rest , Chest Pain with Activity, Claudication, Diaphoresis, Dyspnea, Dyspnea on Exertion, Edema, Irregular Heart Rhythm, Pain Radiating to Arm/Neck/Jaw, Leg Edema, Leg Ulcers, Lightheadedness, Orthopnea, Palpitations, Paroxysmal Nocturnal Dyspnea, Pedal Edema, Radiating Pain, Rapid Heart Rate, Slow Heart Rate, Syncope, Other - Respiratory Respiratory: absent: As Per HPI, Cough, Dyspnea, Hemoptysis, Dyspnea on Exertion , Wheezing, Snoring, Stridor, Pain on Inspiration, Chest Congestion, Excessive Mucous Production, Change in Mucous Color, Pain with Coughing, Other - Gastrointestinal Gastrointestinal: absent: As Per HPI, Abdominal Pain, Belching, Bloating, Change in Bowel Habits, Change in Stool Character, Coffee Ground Emesis, Constipation, Cramping, Diarrhea, Dyspepsia, Dysphagia, Early Satiety, Excessive Flatus, Fecal Incontinence, Heartburn, Hematemesis, Hematochezia, Loose Stools, Melena, Nausea, Odynophagia, Temesmus, Vomiting, Other - Genitourinary Genitourinary: absent: As Per HPI, Change in Urinary Stream, Difficulty Urinating, Dysuria, Flank Pain, Hematuria, Pyuria, Nocturia, Urinary Incontinence, Urinary Frequency, Urinary Hesitance, Urinary Urgency, Voiding Freq/Small Amts, Freq UTI, Hx Renal/Bladder Calculi, Hx /Renal Surgery, Bladder Distension, Other - Musculoskeletal Musculoskeletal: absent: As Per HPI, Abnormal Gait, Arthralgias, Atrophy, Back Pain, Deformity, Joint Swelling, Limited Range of Motion, Loss of Height, Muscle Cramps, Muscle Weakness, Myalgias, Neck Pain, Numbness, Radiating Pain into Limb, Stiffness, Tingling, Other - Integumentary Integumentary: absent: As Per HPI, Acne, Alopecia, Bleeding Lesions, Change in Hair, Change in Nails, Change in Pigmentation, Changing Lesions, Dry Skin, Erythema, Furuncle, Hirsutism, Lesions, New Lesions, Non-Healing Lesions, Photosensitivity, Pruritus, Rash, Skin Pain, Skin Ulcer, Sores, Striae, Swelling , Unusual Bruising, Wounds, Jaundice, Other - Neurological Neurological: absent: As Per HPI, Abnormal Gait, Abnormal Hearing, Abnormal Movements, Abnormal Speech, Behavioral Changes, Burning Sensations, Confusion, Convulsions, Disequilibrium, Dizziness, Numbness, Focal Weakness, Frequent Falls , Headaches, Lack of Coordination, Loss of Vision, Memory Loss, Paresthesias, Radicular Pain, Restless Legs, Sensory Deficit, Syncope, Tingling, Tremor, Vertigo, Weakness, Other Visual Disturbances, Other - Psychiatric Psychiatric: absent: As Per HPI, Abnormal Sleep Pattern, Anhedonia, Anxiety, Auditory Hallucinations, Behavioral Changes, Change in Appetite, Change in Libido, Confusion, Depression, Difficulty Concentrating, Hallucinations, Homicidal Ideation, Hopelessness, Irritability, Memory Loss, Mood Swings, Panic Attacks, Paranoia, Suicidal Ideation, Visual Hallucinations, Tactile Hallucinations, Other - Hematologic/Lymphatic Hematologic: absent: As Per HPI, Easy Bleeding, Easy Bruising, Lymphadenopathy, Other Past Patient History - Infectious Disease Hx of Infectious Diseases: None - Past Medical History & Family History Past Medical History?: Yes - Past Social History Smoking Status: Never Smoked - CARDIAC Hx Hypercholesterolemia: Yes Hx Hypertension: Yes Hx Peripheral Edema: Yes - PULMONARY Hx Bronchitis: Yes - NEUROLOGICAL HX Cerebrovascular Accident: Yes (right sided weaknes) Hx Transient Ischemic Attacks (TIA): Yes - HEENT Hx HEENT Problems: No - RENAL Hx Chronic Kidney Disease: No - ENDOCRINE/METABOLIC Hx Endocrine Disorders: Yes Hx Diabetes Mellitus Type 1: Yes Hx Diabetes Mellitus Type 2: Yes - HEMATOLOGICAL/ONCOLOGICAL Hx Human Immunodeficiency Virus (HIV): Yes (T's>500 V's undectatable) - INTEGUMENTARY Hx Dermatological Problems: No - MUSCULOSKELETAL/RHEUMATOLOGICAL Hx Falls: No - GASTROINTESTINAL Hx Gastrointestinal Disorders: No - GENITOURINARY/GYNECOLOGICAL Hx Genitourinary Disorders: No - PSYCHIATRIC Hx Depression: Yes Hx Schizophrenia: Yes Hx Substance Use: No - SURGICAL HISTORY Hx Cholecystectomy: Yes - ANESTHESIA Hx Anesthesia: Yes Hx Anesthesia Reactions: No Hx Malignant Hyperthermia: No Meds Allergies/Adverse Reactions: Allergies Allergy/AdvReac Type Severity Reaction Status Date / Time ciprofloxacin Allergy Unknown Verified 06/13/16 00:46 - Medications Medications: Current Medications Amlodipine Besylate (Norvasc) 10 mg PO DAILY [facility] Last Admin: 09/01/16 11:08 Dose: 10 mg Aspirin (Ecotrin) 81 mg PO DAILY [facility] Last Admin: 09/01/16 11:08 Dose: 81 mg Atazanavir (Reyataz) 300 mg PO DAILY [facility] Last Admin: 09/01/16 11:06 Dose: 300 mg Citalopram Hydrobromide (Celexa) 20 mg PO DAILY [facility] Last Admin: 09/01/16 11:08 Dose: 20 mg Clopidogrel Bisulfate (Plavix) 75 mg PO DAILY [facility] Last Admin: 09/01/16 11:08 Dose: 75 mg Famotidine (Pepcid) 20 mg PO DAILY [facility] Last Admin: 09/01/16 17:41 Dose: 20 mg Furosemide (Lasix) 20 mg PO BID [facility] Last Admin: 09/01/16 17:41 Dose: 20 mg Gabapentin (Neurontin) 300 mg PO TID [facility] Last Admin: 09/01/16 17:41 Dose: 300 mg Home Med (Emtricitabine/Tenofov Alafenam [Descovy 200-25 Mg Tablet]) 1 each PO DAILY [facility] Insulin Detemir (Levemir) 10 unit SC DAILY [facility] Last Admin: 09/01/16 11:08 Dose: 10 unit Insulin Human Regular (Novolin R) 0 unit SC ACHS [facility] PRN Reason: Protocol Last Admin: 09/01/16 17:53 Dose: 3 unit Levetiracetam (Keppra) 500 mg PO BID [facility] Last Admin: 09/01/16 17:44 Dose: 500 mg Metoprolol Succinate (Toprol Xl) 25 mg PO DAILY [facility] Ritonavir (Norvir) 100 mg PO DAILY [facility] Last Admin: 09/01/16 11:08 Dose: 100 mg Rosuvastatin Calcium (Crestor) 10 mg PO HS [facility] Last Admin: 09/01/16 00:00 Dose: Not Given Tramadol HCl (Ultram) 25 mg PO TID PRN PRN Reason: Pain, severe (8-10) Last Admin: 09/01/16 14:12 Dose: 25 mg Physical Exam - Constitutional Appears: Non-toxic - Head Exam Head Exam: NORMAL INSPECTION - Eye Exam Eye Exam: Normal appearance - ENT Exam ENT Exam: Mucous Membranes Moist - Neck Exam Neck exam: Positive for: Full Rom - Respiratory Exam Respiratory Exam: Decreased Breath Sounds - Cardiovascular Exam Cardiovascular Exam: REGULAR RHYTHM - GI/Abdominal Exam GI & Abdominal Exam: Normal Bowel Sounds - Rectal Exam Rectal Exam: Deferred - Extremities Exam Extremities exam: Negative for: pedal edema - Back Exam Back exam: NORMAL INSPECTION - Neurological Exam Neurological exam: Alert, Oriented x3 - Psychiatric Exam Psychiatric exam: Normal Affect - Skin Skin Exam: Normal Color Results - Vital Signs Recent Vital Signs: Last Vital Signs Temp 97.6 F 09/01/16 15:41 Pulse 98 H 09/01/16 15:41 Resp 20 09/01/16 15:41 BP 120/69 09/01/16 17:41 Pulse Ox 100 09/01/16 15:41 - Labs Result Diagrams: 08/31/16 19:09 08/31/16 19:09 Labs: Laboratory Results - last 24 hr 09/01/16 09/01/16 09/01/16 04:09 06:18 06:42 POC Glucose (mg/dL) 171 H Total Creatine Kinase 72 58 CK-MB (Mass) 0.55 0.97 Troponin I, Quant < 0.0120 < 0.0120 09/01/16 09/01/16 09/01/16 11:52 11:56 17:49 POC Glucose (mg/dL) 236 H 224 H Total Creatine Kinase 56 CK-MB (Mass) 0.33 Troponin I, Quant < 0.0120 - EKG Data EKG Interpreted by: Myself EKG shows normal: Sinus rhythm Assessment & Plan (1) Chest pain Assessment and Plan: there are atypical features of angina. recommend echocardiogram. check troponin level, but thus far are negative. Status: Acute (2) HTN (hypertension) Assessment and Plan: blood pressure control Status: Chronic
[2016-09-02 07:50] VITALS: RESP 18; TEMP 98.5; O2SAT 96
[2016-09-02] MEDS: (Novolin R) Insulin Human Regular 100 units/ml vial SC SCH ×2 (08:07→13:10)
--- NOTE | 2016-09-02 08:49 | HP ---
A 61-year-old female, history of COPD, history of CVA, hypertension, HIV. Came to hospital with alex f complaint of chest pain, retrosternal. Came to the ER, advised admission. PAST MEDICAL HISTORY: As mentioned above. The patient is a smoker. PHYSICAL EXAMINATION: GENERAL: The patient is awake, alert, oriented. VITAL SIGNS: Temperature 98, pulse 90. HEENT: Within normal limits. NECK: Supple. CHEST: Symmetrical. HEART: Regular. ABDOMEN: Soft. EXTREMITIES: No edema. The patient suffers from rule out acute coronary syndrome. The patient will get bedrest, supportive care. Kamala Chester MD cc: [id number] TT: 09/01/2016 13:07:44 en
[2016-09-02] MEDS: Insulin Detemir 100 units/ml Vial (Levemir) SC SCH (09:26)
--- NOTE | 2016-09-02 09:26 | CP.PCM.PN ---
Subjective - Date & Time of Evaluation Date of Evaluation: 09/02/16 Time of Evaluation: 07:00 - Subjective Subjective: Medicine Progress Note Patient seen and examined. Patient complains of generalized body pain that is worse in her back. She is requesting IV pain medication and states that the Tramadol is not helping her pain. Patient does not appear to be in acute distress and was sleeping comfortably upon my entrance in the room. Pt denies chest pain and states that it resolved after admission. Denies fever, chills, nausea, vomiting, diarrhea, abdominal pain, and palpitations. Objective - Vital Signs/Intake and Output Vital Signs (last 24 hours): Temp Pulse Resp BP Pulse Ox 98.5 F 65 18 104/54 L 96 09/02/16 07:35 09/02/16 08:00 09/02/16 07:35 09/02/16 07:35 09/02/16 07:35 Intake and Output: 09/02/16 09/02/16 06:59 18:59 Intake Total 240 Balance 240 - Medications Medications: Current Medications Amlodipine Besylate (Norvasc) 10 mg PO DAILY [facility] Last Admin: 09/01/16 11:08 Dose: 10 mg Aspirin (Ecotrin) 81 mg PO DAILY [facility] Last Admin: 09/01/16 11:08 Dose: 81 mg Atazanavir (Reyataz) 300 mg PO DAILY [facility] Last Admin: 09/01/16 11:06 Dose: 300 mg Citalopram Hydrobromide (Celexa) 20 mg PO DAILY [facility] Last Admin: 09/01/16 11:08 Dose: 20 mg Clopidogrel Bisulfate (Plavix) 75 mg PO DAILY [facility] Last Admin: 09/01/16 11:08 Dose: 75 mg Famotidine (Pepcid) 20 mg PO DAILY [facility] Last Admin: 09/01/16 17:41 Dose: 20 mg Furosemide (Lasix) 20 mg PO BID [facility] Last Admin: 09/01/16 17:41 Dose: 20 mg Gabapentin (Neurontin) 300 mg PO TID [facility] Last Admin: 09/01/16 17:41 Dose: 300 mg Home Med (Emtricitabine/Tenofov Alafenam [Descovy 200-25 Mg Tablet]) 1 each PO DAILY [facility] Insulin Detemir (Levemir) 10 unit SC DAILY [facility] Last Admin: 09/01/16 11:08 Dose: 10 unit Insulin Human Regular (Novolin R) 0 unit SC ACHS [facility] PRN Reason: Protocol Last Admin: 09/02/16 08:07 Dose: 2 unit Levetiracetam (Keppra) 500 mg PO BID [facility] Last Admin: 09/01/16 17:44 Dose: 500 mg Metoprolol Succinate (Toprol Xl) 25 mg PO DAILY [facility] Ritonavir (Norvir) 100 mg PO DAILY [facility] Last Admin: 09/01/16 11:08 Dose: 100 mg Rosuvastatin Calcium (Crestor) 10 mg PO HS [facility] Last Admin: 09/01/16 22:12 Dose: 10 mg Tramadol HCl (Ultram) 25 mg PO TID PRN PRN Reason: Pain, severe (8-10) Last Admin: 09/01/16 22:12 Dose: 25 mg - Labs Labs: PT 9.4 SECONDS (9.7-12.2) L 08/31/16 19:09 INR 0.9 08/31/16 19:09 APTT 21 SECONDS (21-34) 08/31/16 19:09 - Constitutional Appears: Non-toxic, No Acute Distress - Head Exam Head Exam: ATRAUMATIC, NORMOCEPHALIC - Eye Exam Eye Exam: EOMI, Normal appearance - ENT Exam ENT Exam: Mucous Membranes Moist - Neck Exam Neck Exam: Normal Inspection - Respiratory Exam Respiratory Exam: Clear to Ausculation Bilateral, NORMAL BREATHING PATTERN. absent: Rhonchi, Wheezes, Respiratory Distress - Cardiovascular Exam Cardiovascular Exam: REGULAR RHYTHM, +S1, +S2 - GI/Abdominal Exam GI & Abdominal Exam: Soft, Normal Bowel Sounds - Extremities Exam Extremities Exam: Normal Inspection. absent: Pedal Edema - Neurological Exam Neurological Exam: Alert, Awake, Oriented x3 - Psychiatric Exam Psychiatric exam: Agitated, Normal Affect, Normal Mood - Skin Skin Exam: Dry, Intact, Normal Color, Warm Assessment and Plan - Assessment and Plan (Free Text) Assessment: 1. Chest pain Resolved, Ruled out ACS. Likely non-cardiac Romis negative x3 panel monitor NSR 5 Chest X-ray: Mild venous congestion. Patchy left basilar airspace opacity with question trace left pleural effusion. Dr Quintana consulted- help appreciated 06/13/16 ECHO- EF normal, LV diastolic dysfunction, mild pulmonary HTN 2. CHF ECHO- diastolic dysfunction, EF 65-70% Lasix 20mg PO BID 3. HIV Atazanavir 300mg PO daily Truvada 200-300mg PO daily Norvir 100mg PO daily 4. HTN Norvasc 10mg PO daily Lasix 20mg PO BID Lopressor 25mg PO BID 5. DM Levemir 10U SC daily Neurontin 300mg PO daily Accuchecks ISS 6. CKD Stage 3 CKD Stable, BUN/Cr 22/1.5 Can not give fluids due to CHF Monitor 7. Hx CVA ASA 81mg PO daily Plavix 75mg PO daily Crestor 10mg PO HS 8. Prophylactic measures ASA Plavix Pepcid 20mg PO BID Management per Dr Bright
[2016-09-02 09:30] VITALS: BP 125/62
[2016-09-02] MEDS: Atazanavir 300 mg Cap PO SCH (09:30)
[2016-09-02] MEDS ORDERED: TENOFOV ALAFENAM PO SCH (10:00)
[2016-09-02] MEDS ORDERED: Metoprolol Succinate 25 mg XL Tab PO SCH (10:00)
[2016-09-02] MEDS ORDERED: EMTRICITABINE PO SCH (10:00)
[2016-09-02 11:44] VITALS: PULSE 80
== END 2016-09-02 14:42 | disposition home or self-care (01) ==
LOC: C.ER 17:26 → INTOOBSV 20:30 → C.6T 20:30
PROVIDERS: ADMIT Internal Medicine Pulmonary Disease; ATTEND Internal Medicine Pulmonary Disease
DX: R07.89 Other chest pain (principal); I13.0 Hypertensive heart and chronic kidney disease with heart failure and stage 1 through stage 4 chronic kidney disease, or unspecified chronic kidney disease; N18.3 Chronic kidney disease, stage 3 (moderate); E11.22 Type 2 diabetes mellitus with diabetic chronic kidney disease; Z21 Asymptomatic human immunodeficiency virus [HIV] infection status; I50.9 Heart failure, unspecified; M19.90 Unspecified osteoarthritis, unspecified site; F20.9 Schizophrenia, unspecified; Z86.73 Personal history of transient ischemic attack (TIA), and cerebral infarction without residual deficits; E78.00 Pure hypercholesterolemia, unspecified; F32.9 Major depressive disorder, single episode, unspecified; J44.9 Chronic obstructive pulmonary disease, unspecified; F17.210 Nicotine dependence, cigarettes, uncomplicated
CPT/HCPCS: 36415; 71010; 80053; 82550; 82553; 82948; 84484; 85025; 85610; 85730; 93005; 96374; 97116; 97162; 99285; G0378; G8978; G8979; J2270

== ENCOUNTER 2016-09-17 23:32 | Emergency (ER) | payer MEDICARE, OTHER ==
[2016-09-17 23:33] VITALS: BMI 36.2
[2016-09-17 23:48] VITALS: O2SAT 98
--- NOTE | 2016-09-18 00:07 | C.PDOC ---
History Of Present Illness Patient is a 61 year old female who presents to the ER with a complaint of chronic back pain. Patient states she ran out of pain medication. Patient has had studies done in outside hospitals for the back pain. Patient is laying on her side asleep, has difficulty following questions due to falling asleep in middle of questioning. Denies acute injury, weakness or numbness. Time Seen by Provider: 09/17/16 23:53 Chief Complaint (Nursing): Back Pain History Per: Patient History/Exam Limitations: no limitations Onset/Duration Of Symptoms: Hrs Current Symptoms Are (Timing): Still Present Quality Of Discomfort: Unable To Describe Previous Symptoms: Back Pain, Chronic Pain Associated Symptoms: denies: New Weakness, New Numbness Exacerbating Factor(s): Nothing Recent travel outside of the [place]: No Past Medical History Reviewed: Historical Data, Nursing Documentation, Vital Signs Vital Signs: Last Vital Signs Temp 98 F 09/18/16 00:25 Pulse 84 09/18/16 00:25 Resp 20 09/18/16 00:25 BP 126/70 09/18/16 00:25 Pulse Ox 98 09/18/16 00:26 - Medical History PMH: Arthritis, Bronchitis, CVA, Depression, Diabetes, HIV (T's>500 V's undectatable), HTN, Hypercholesterolemia, Peripheral Edema, Schizophrenia, TIA Surgical History: Cholecystectomy Family History: States: Unknown Family Hx - Social History Hx Tobacco Use: No Hx Alcohol Use: No Hx Substance Use: No - Immunization History Hx Tetanus Toxoid Vaccination: No Hx Influenza Vaccination: Yes Hx Pneumococcal Vaccination: Yes Review Of Systems Musculoskeletal: Positive for: Back Pain (Chonic) Neurological: Negative for: Weakness, Numbness Physical Exam - Physical Exam Appears: Well, Non-toxic Skin: Normal Color, Warm, Dry Head: Atraumatic, Normacephalic Eye(s): bilateral: Other (Pin point pupils) Nose: Normal Oral Mucosa: Moist Chest: Symmetrical, No Tenderness Cardiovascular: Rhythm Regular, No Murmur Respiratory: Normal Breath Sounds, No Rales, No Rhonchi, No Wheezing Gastrointestinal/Abdominal: Soft, No Tenderness Extremity: Pedal Edema Neurological/Psych: Oriented x3, Normal Speech, Normal Cognition ED Course And Treatment O2 Sat by Pulse Oximetry: 98 (room air) Pulse Ox Interpretation: Normal Progress Note: Motrin administered. Medical Decision Making Medical Decision Making: chronic back pain ran out of narcotic pain relievers, no new injuries pinpoint pupils and falling asleep multiple times during eval- this MD not comfortable giving nor prescribing more narcotics for pt asleep, suspicious for narcotics abuse Argumentative confrontational LS and Thoracic spine films 01/09 wnl, no MRI/CT's noted, no h/o trauma. [place] [employer] reviewed- 11 prescriptions from 7 providers since 02/08 but no chronic pain specialist. Disposition Doctor Will See Patient In The: Office Counseled Patient/Family Regarding: Studies Performed, Diagnosis - Disposition Referrals: Kamala Bright MD [Staff Provider] - Disposition: HOME/ ROUTINE Disposition Time: 00:06 Condition: GOOD Additional Instructions: seek chronic pain meds and evaluation through your PMD or a Chronic Pain medicine specialist. Instructions: Chronic Back Pain (ED) - Clinical Impression Clinical Impression: Chronic back pain - Scribe Statement The provider has reviewed the documentation as recorded by the Scribe Varinder Dillon All medical record entries made by the Scribe were at my direction and personally dictated by me. I have reviewed the chart and agree that the record accurately reflects my personal performance of the history, physical exam, medical decision making, and the department course for this patient. I have also personally directed, reviewed, and agree with the discharge instructions and disposition.
[2016-09-18 00:25] VITALS: BP 126/70; PULSE 84; RESP 20; TEMP 98
== END 2016-09-18 00:25 | disposition home or self-care (01) ==
LOC: C.ER 23:32
DX: G89.29 Other chronic pain (principal); M54.9 Dorsalgia, unspecified

== ENCOUNTER 2017-10-23 20:42 | Emergency (ER) | payer MEDICARE, OTHER ==
[2017-10-23 20:43] VITALS: BMI 36.2
[2017-10-23 21:01] VITALS: RESP 18; TEMP 98
[2017-10-23] MEDS ORDERED: Naproxen 550 mg Tab PO STA (21:15)
--- NOTE | 2017-10-23 21:16 | C.PDOC ---
History Of Present Illness 62 year old female with PMHx of HTN, DM, and CVA (right side hemiparesis) 4 years ago presents to the ED c/o right side chest pain associated with mild nausea. Patient reports that today at 16:00 she started feeling right sided chest pain. Patient states her pain is pleuritic worse with movement occasionally radiating towards her mid back. Patient denies fever, chills, cough , vomit, diarrhea. Chief Complaint (Nursing): Chest Pain History Per: Patient History/Exam Limitations: no limitations Onset/Duration Of Symptoms: Hrs Current Symptoms Are (Timing): Still Present Quality: "Pain" Modifying Factors: None Exacerbating Factors: Movement Alleviating Factors: None Recent travel outside of the [place]: No Additional History Per: Patient Past Medical History Reviewed: Historical Data, Nursing Documentation, Vital Signs Vital Signs: Last Vital Signs Temp 98 F 10/23/17 23:25 Pulse 78 10/23/17 23:25 Resp 18 10/23/17 23:25 BP 136/72 10/23/17 23:25 Pulse Ox 98 10/23/17 23:25 - Medical History PMH: Arthritis, Bronchitis, CVA, Depression, Diabetes, HIV (T's>500 V's undectatable), HTN, Hypercholesterolemia, Peripheral Edema, Schizophrenia, TIA Denies: Chronic Kidney Disease Surgical History: Cholecystectomy Family History: States: Unknown Family Hx - Social History Hx Tobacco Use: No Hx Alcohol Use: No Hx Substance Use: No - Immunization History Hx Tetanus Toxoid Vaccination: No Hx Influenza Vaccination: Yes Hx Pneumococcal Vaccination: Yes Review Of Systems Constitutional: Negative for: Fever, Chills Cardiovascular: Positive for: Chest Pain. Negative for: Palpitations Respiratory: Negative for: Cough, Shortness of Breath Gastrointestinal: Positive for: Nausea. Negative for: Vomiting Musculoskeletal: Positive for: Back Pain Skin: Negative for: Rash Neurological: Negative for: Weakness, Numbness Physical Exam - Physical Exam Appears: Non-toxic, No Acute Distress Skin: Normal Color, Warm, Dry Head: Atraumatic, Normacephalic Eye(s): bilateral: Normal Inspection Oral Mucosa: Moist Neck: Normal ROM, No Midline Cervical Tenderness, Supple Chest: Symmetrical, Tenderness (right lower, reproducible with palpation. twisting of the trunk also reproduces pain) Cardiovascular: Rhythm Regular Respiratory: Normal Breath Sounds, No Rales, No Rhonchi, No Wheezing Gastrointestinal/Abdominal: Soft, No Tenderness, No Guarding, No Rebound Back: Normal Inspection Extremity: Normal ROM, No Tenderness, No Swelling Neurological/Psych: Oriented x3, Normal Speech, Normal Motor (right side 4/5 vs 5/5 left side) Gait: Steady ED Course And Treatment - Laboratory Results Result Diagrams: 10/23/17 21:27 10/23/17 21:27 O2 Sat by Pulse Oximetry: 100 (ON RA) Pulse Ox Interpretation: Normal - Radiology CXR: Interpreted by Me, Viewed By Me CXR Interpretation: Yes: No Acute Disease. No: Infiltrates Medical Decision Making Medical Decision Making: Impression: atypical chest pain Plan: * Labs * CXR * EKG * Naproxen 550 mg PO Labs were reviewed and came back unremarkable. Patient will be treated for atypical chest pain with tramadol and D/C home Disposition - Disposition Referrals: [facility] [Outside] Disposition: HOME/ ROUTINE Disposition Time: 06:23 Condition: FAIR Prescriptions: traMADol [Ultram] 50 mg PO TID PRN #15 tab PRN Reason: Pain, Mild (1-3) Instructions: Costochondritis Forms: [employer] (Luxembourgish) Print Language: NICARAGUAN - Clinical Impression Clinical Impression: Chest discomfort - Scribe Statement The provider has reviewed the documentation as recorded by the Scribe Hans Boateng All medical record entries made by the Scribe were at my direction and personally dictated by me. I have reviewed the chart and agree that the record accurately reflects my personal performance of the history, physical exam, medical decision making, and the department course for this patient. I have also personally directed, reviewed, and agree with the discharge instructions and disposition.
[2017-10-23] MEDS ORDERED: Naproxen 550 mg Tab PO ONE (21:37)
[2017-10-23 21:41] LABS: BASO # 0.1 K/uL (0.0-0.2); BASO % 0.8 % (0.0-2.0); EOS # 0.3 K/uL (0.0-0.7); EOS % 4.7 % (0.0-4.0); HEMOGLOBIN 12.1 g/dL (11.0-16.0); LYMPH % 54.3 % (20.0-40.0); MEAN CORPUSCULAR HEMOGLOBIN 31.1 pg (27.0-31.0); MEAN CORPUSCULAR HGB CONC 33.8 g/dL (33.0-37.0); MEAN PLATELET VOLUME 7.1 fL (7.2-11.7); MONO # 0.5 K/uL (0.0-0.8); MONO % 6.9 % (0.0-10.0); NEUT # 2.4 K/uL (1.8-7.0); NEUT % 33.3 % (50.0-75.0); NRBC % 0.1 % (0.0-2.0); RBC 3.89 Mil/uL (3.80-5.20); RED CELL DISTRIBUTION WIDTH 15.1 % (11.5-14.5); WHITE BLOOD COUNT 7.3 K/uL (4.8-10.8)
[2017-10-23 21:43] LABS: ALB/GLOB RATIO 1.3 (1.0-2.1); ALBUMIN 3.8 g/dL (3.5-5.0); ALT/SGPT 29 U/L (9-52); AST/SGOT 18 U/L (14-36); BLOOD UREA NITROGEN 20 mg/dL (7-17); CALCIUM 8.7 mg/dl (8.6-10.4); GFR AFRICAN-AMERICAN 40; GFR NON-AFRICAN AMERICAN 33
[2017-10-23 23:26] VITALS: BP 136/72; PULSE 78
[2017-10-24 06:24] VITALS: O2SAT 100
--- NOTE | 2017-10-24 09:45 | RAD ---
PROCEDURE: CHEST RADIOGRAPH, 1 VIEW HISTORY: chest pain COMPARISON: Comparison chest dated 08/31/2016 FINDINGS: LUNGS: Mild bibasilar atelectasis. PLEURA: No pneumothorax or pleural fluid seen. CARDIOVASCULAR: Normal. OSSEOUS STRUCTURES: No significant abnormalities. VISUALIZED UPPER ABDOMEN: Normal. OTHER FINDINGS: None. IMPRESSION: Mild bibasilar atelectasis
--- NOTE | 2017-10-25 23:22 | CARD ---
APPROVED REPORT EKG Measurement Heart [id number] ID [id number] <Conclusion> Normal sinus rhythm Minimal voltage criteria for LVH, may be normal variant Inferior infarct, age undetermined Abnormal ECG
== END 2017-10-23 23:26 | disposition home or self-care (01) ==
LOC: C.ER 20:42
DX: R07.89 Other chest pain (principal); E11.9 Type 2 diabetes mellitus without complications; E78.00 Pure hypercholesterolemia, unspecified; I10 Essential (primary) hypertension; F20.9 Schizophrenia, unspecified; Z86.73 Personal history of transient ischemic attack (TIA), and cerebral infarction without residual deficits
CPT/HCPCS: 71045; 80053; 84484; 85025; 85378; 96372; 99284; J1885

== ENCOUNTER 2018-03-21 18:23 | Emergency (ER) | payer MEDICARE, OTHER ==
[2018-03-21 18:23] VITALS: BMI 36.2
[2018-03-21 18:47] VITALS: O2SAT 100
[2018-03-21] MEDS ORDERED: Latanoprost 2.5 ml Opht Soln OD STA (20:00)
[2018-03-21] MEDS ORDERED: Dorzolamide 2% Opht Sol 10ml OD STA (20:01)
[2018-03-21] MEDS ORDERED: Pilocarpine 2% Opht (15 ml) OD STA (20:03)
--- NOTE | 2018-03-21 20:20 | C.PDOC ---
History Of Present Illness 62 year old female with a history of hypertensive retinopathy was sent to the ED s/p attempted laser iridotomy today. Patient reports pain to the right eye with elevated pressure. pt has no vision to that eye x 4 mo. upon my assessment, pt surgeron on phone, states pt had "elevated pressure" in the office. requests specific regimen of medicaiton and dc for OR in am. npo fever, headache, and any other associated symptoms. Time Seen by Provider: 03/21/18 19:50 Chief Complaint (Nursing): Eye Problem History Per: Patient History/Exam Limitations: no limitations Onset/Duration Of Symptoms: Other (prior to arrival) Current Symptoms Are (Timing): Still Present Past Medical History Reviewed: Historical Data, Nursing Documentation, Vital Signs Vital Signs: Last Vital Signs Temp 98.4 F 03/21/18 18:40 Pulse 92 H 03/21/18 18:40 Resp 20 03/21/18 18:40 BP 203/81 H 03/21/18 18:40 Pulse Ox 100 03/21/18 18:40 - Medical History PMH: Arthritis, Bronchitis, CVA, Depression, Diabetes, HIV (T's>500 V's undectatable), HTN, Hypercholesterolemia, Peripheral Edema, Schizophrenia, TIA Denies: Chronic Kidney Disease Surgical History: Cholecystectomy Family History: States: Unknown Family Hx - Social History Hx Tobacco Use: No Hx Alcohol Use: No Hx Substance Use: No - Immunization History Hx Tetanus Toxoid Vaccination: No Hx Influenza Vaccination: Yes Hx Pneumococcal Vaccination: Yes Review Of Systems Except As Marked, All Systems Reviewed And Found Negative. Constitutional: Negative for: Fever Eyes: Positive for: Pain (right eye. ), Other (elevated pressure. ). Negative for: Vision Change Neurological: Negative for: Headache Physical Exam - Physical Exam Appears: Well, Non-toxic, No Acute Distress Skin: Normal Color, Warm, Dry Head: Atraumatic, Normacephalic Eye(s): right: Other (right eye: (+) conjuctiva injected. (+) pupil dilated. ), left: Normal Inspection, EOMI Oral Mucosa: Moist Neck: Normal ROM, Supple Chest: Symmetrical, No Deformity Cardiovascular: Rhythm Regular, No Friction Rub Respiratory: Normal Breath Sounds, No Rales, No Rhonchi, No Wheezing Neurological/Psych: Oriented x3, Normal Speech, Normal Cognition, Normal Motor, Normal Sensation, Normal Reflexes ED Course And Treatment O2 Sat by Pulse Oximetry: 100 (RA) Pulse Ox Interpretation: Normal Medical Decision Making Medical Decision Making: Plan: --Diamox. --Isopto Carpine --Morphine --Timoptic --Trusopt --Xalatan Opht as per pt surgeon dr greenwood, requests diamox 500mg now and in am. requests xalatan 1 drop q 30 min, pilocarpine 1 drop q 30 min x 3 doses (dosed iner prior to dc), cosopt 1 drop q 30 min x 3 doses (dosed in er prior to dc) s/p pain meds and medicaitons, pt feeling much better. visual acutiy at baseline.i discussed personally extensively with the patient that she needs to see her surgeon in the am for further managment. she is given strict return precautions. she verbalizes understanding. Disposition - Disposition Disposition: HOME/ ROUTINE Disposition Time: 22:30 Condition: GOOD Additional Instructions: return to er with worsening pain symptoms or concerns. see your doctor in am. please take xalatan every 30 min until follow up for your surgery in am. Prescriptions: acetaZOLAMIDE [Diamox] 500 mg PO ONCE #1 tab oxyCODONE/Acetaminophen [Percocet 5/325 mg Tab] 1 ea PO Q6 PRN #10 tab PRN Reason: Pain, Severe (8-10) Instructions: Glaucoma, Angle-Closure Glaucoma Forms: [employer] (Mongolian) - Clinical Impression Clinical Impression: Pain in eye, Acute glaucoma - Scribe Statement The provider has reviewed the documentation as recorded by the Scribe (Princess Cota) Provider Attestation: All medical record entries made by the Scribe were at my direction and personally dictated by me. I have reviewed the chart and agree that the record accurately reflects my personal performance of the history, physical exam, medical decision making, and the department course for this patient. I have also personally directed, reviewed, and agree with the discharge instructions and disposition.
[2018-03-21 22:35] VITALS: BP 163/83; PULSE 89; RESP 18; TEMP 97.9
--- NOTE | 2018-03-22 17:07 | CARD ---
APPROVED REPORT Date of service: 03/21/2018 EKG Measurement Heart [id number] <Conclusion> Normal sinus rhythm Possible Left atrial enlargement Left axis deviation Left ventricular hypertrophy Abnormal ECG
== END 2018-03-21 22:49 | disposition home or self-care (01) ==
LOC: C.ER 18:23
DX: H57.11 Ocular pain, right eye (principal); H40.9 Unspecified glaucoma; E11.9 Type 2 diabetes mellitus without complications; E78.00 Pure hypercholesterolemia, unspecified; F20.9 Schizophrenia, unspecified; I10 Essential (primary) hypertension; Z86.73 Personal history of transient ischemic attack (TIA), and cerebral infarction without residual deficits
CPT/HCPCS: 82948; 93005; 96374; 99285; J1120; J2270